=== PATIENT | female | born 1930 | race Caucasian/White ===

== ENCOUNTER 2016-11-04 05:04 | Inpatient (IN) | payer OTHER ==
[~2016-11-04] VITALS: Ht 165.1 cm; Wt 82.6 kg
--- NOTE | 2016-11-04 05:25 | ED GENERAL ADULT ---
History of Present Illness General Chief Complaint: Lower Extremity Problems Stated Complaint: WEAKNESS,BILAT LEG PAIN AND WHEEPING Source: patient, family Exam Limitations: no limitations Vital Signs & Intake/Output Vital Signs & Intake/Output Vital Signs Date Time Temp Pulse Resp B/P Pulse O2 O2 Flow FiO2 Ox Delivery Rate 11/04 0551 96 Room Air Room Air 11/04 526 98.0 83 20 172/72 96 Room Air Triage Nurses Notes Reviewed? yes HPI: Patient was seen by her vascular surgeon earlier today and had Unaboot put on. This evening she began having shaking chills and increasing weeping from both legs. Positive weakness to the point that she can't get out of bed. Patient called her daughter who brought her in for evaluation. No documented fever but positive chills. No nausea or vomiting. No coughing. No chest pain or palpitations. Past History Medical History Any Pertinent Medical History? see below for history EENT: glaucoma, macular degeneration Cardiovascular: hypertension, VASCULAR INSUFFICIENCY Surgical History Surgical History: non-contributory Psychosocial History Tobacco Use: Never used ETOH Use: denies use Illicit Drug Use: denies illicit drug use Family History Hx Contributory? No Review of Systems Review of Systems Constitutional: Reports: see HPI, chills. EENTM: Reports: no symptoms. Respiratory: Reports: no symptoms. Cardiovascular: Reports: no symptoms. GI: Reports: no symptoms. Genitourinary: Reports: no symptoms. Musculoskeletal: Reports: see HPI. Skin: Reports: no symptoms. Neurological/Psychological: Reports: no symptoms. Hematologic/Endocrine: Reports: no symptoms. Immunologic/Allergic: Reports: no symptoms. All Other Systems: Reviewed and Negative Physical Exam Physical Exam General Appearance: well developed/nourished, alert, awake Head: atraumatic, normal appearance Eyes: Bilateral: PERRL, EOMI. Ears, Nose, Throat: normal pharynx, normal ENT inspection, hearing grossly normal Neck: normal inspection, supple, full range of motion Respiratory: normal breath sounds, chest non-tender, no respiratory distress, lungs clear Cardiovascular: regular rate/rhythm, normal peripheral pulses Gastrointestinal: normal bowel sounds, soft, non-tender, no organomegaly Back: normal inspection, normal range of motion Extremities: pedal edema, swelling Neurologic/Psych: awake, alert, oriented x 3 Skin: ERYTHEMA Lymphatic: no anterior cervical chacha Core Measures ACS in differential dx? Yes ASA ordered for poss ACS? Yes-ordered CVA/TIA Diagnosis: No Severe Sepsis Present: Yes BC x2: Yes Lactic Acid x2: Yes IV ABX Broad Spectrum: Yes NS/LR Started: Yes Septic Shock Present: No Progress Differential Diagnoses I considered the following diagnoses in my evaluation of the patient: [ Cellulitis, sepsis, bacteremia] Plan of Care: Orders Procedure Date/time Status LACTIC ACID 11/04 828 Active Admit to inpatient 11/04 06 Active Telemetry/Tightener 11/04 0548 Active LACTIC ACID 11/04 528 Complete CULTURE,URINE 11/05 523 Active BLOOD CULTURE 11/05 523 Active URINALYSIS 11/05 523 Complete TROPONIN LEVEL 11/05 523 Complete COMPREHENSIVE METABOLIC PANEL 11/05 523 Complete CBC WITHOUT DIFFERENTIAL 11/05 523 Complete EKG 11/05 523 Active Current Medications Sig/Michael Start time Last Medication Dose Stop Time Status Admin Aspirin 325 MG ONCE ONE 11/04 0645 UNVr (Aspirin) 11/04 0646 Ceftriaxone Sodium 1,000 MG ONCE ONE 11/04 0645 UNVr (Rocephin) 11/04 0646 Sodium Chloride 1,000 ML BOLUS ONE 11/04 0645 UNVr (Normal Saline 0.9%) 11/04 0744 Sodium Chloride 1,000 ML BOLUS ONE 11/04 0645 UNVr (Normal Saline 0.9%) 11/04 0744 Laboratory Tests 11/04/16 0610: Urinalysis LIGHT H, Urine Color YEL, Urine Clarity HAZY H, Urine pH 6.0, Ur Specific [place] 1.020, Urine Protein 100 H, Urine Ketones NEG, Urine Nitrite NEG, Urine Bilirubin NEG, Urine Urobilinogen 0.2, Ur Leukocyte Esterase NEG, Ur Microscopic SEDIMENT EXAMINED, Urine RBC 5-10 H, Urine WBC 1-3 H, Ur Epithelial Cells FEW, Urine Bacteria FEW H, Hyaline Casts RARE H, Granular Casts 1-3 H, Urine Mucus MOD H, Urine Hemoglobin MOD H, Urine Glucose NEG 11/04/16 0535: Lactic Acid 2.9 H 11/04/16 0535: Anion Gap 19 H, Estimated GFR 30 L, BUN/Creatinine Ratio 28.1 H, Glucose 162 H, Calcium 10.0, Total Bilirubin 0.9, AST 41 H, ALT 45, Alkaline Phosphatase 123, Troponin I 1.60 *H, Total Protein 8.1, Albumin 4.4, Globulin 3.7, Albumin/ Globulin Ratio 1.2, CBC w Diff MAN DIFF ORDERED, RBC 4.28, MCV 89.1, MCH 29.1, RDW 14.8 H, MPV 8.2, Gran % 94.8 H, Lymphocytes % 2.9 L, Monocytes % 2.2, Eosinophils % 0, Basophils % 0.1, Absolute Granulocytes 22.4 H, Segmented Neutrophils 84 H, Band Neutrophils 11 H, Absolute Lymphocytes 0.7 L, Lymphocytes 3 L, Monocytes 2, Absolute Monocytes 0.5, Absolute Eosinophils 0, Absolute Basophils 0, Platelet Estimate ADEQUATE, Polychromasia 1+, PUBS MCHC 32.7 L Microbiology 11/04 609 URINE ROUT: Urine Culture - RECD 11/04 550 BLOOD: Blood Culture - RECD 11/04 534 BLOOD: Blood Culture - RECD Initial ED EKG: NSR, RBBB, nonspecific ST T wave chg Prior EKG: unchanged Rhythm Strip: normal sinus rhythm Departure Departure Disposition: STILL A PATIENT Condition: Guarded Clinical Impression Primary Impression: Sepsis Secondary Impressions: Elevated troponin Referrals: NIYA ARRIETA MD (PCP/Family) Departure Forms: Customer Survey General Discharge Information Admission Note Spoke With: SEDRICK LANGE,RADHA Givens Documentation of Exam: Documentation of any treatments & extenuating circumstances including Concerns Regarding Discharge (functional status, medication knowledge or non-compliance, living conditions, etc.) that warrant an admission rather than observation: [ Broad spectrum antibiotics, IV fluids, cardiology consultation, telemetry monitoring, serial enzymes] Critical Care Note Critical Care Note Critical Care Time: mins: (45 MIN)
--- NOTE | 2016-11-04 05:25 | NUR ---
86YO FEMALE TO RM 9 VIA WHEELCHAIR W/CO FEELING WEAK AND BILAT LE PAIN. BOTH LEGS VERY EDEMATOUS AND WRAPPED IN GAUZE TO KNEES OOZING SEROUS DRAINAGE. EVAL BY DR JOSHUA
--- NOTE | 2016-11-04 05:47 | NUR ---
LABS DRAWN --1ST SET BL CULT,SST,BLUE,WHITNEY,LAV ALL SENT
--- NOTE | 2016-11-04 05:53 | NUR ---
IV EST #20 IN LAC
--- NOTE | 2016-11-04 05:54 | NUR ---
PT MEDICATED WITH NS INFUSING PER EMAR
[2016-11-04 06:07] LABS: ABSOLUTE BASOPHIL COUNT 0 /CUMM (0.0-0.2); ABSOLUTE EOSINOPHIL COUNT 0 /CUMM (0.0-0.7); ABSOLUTE GRANULOCYTE CT 22.4 /CUMM (1.4-6.5); ABSOLUTE LYMPH COUNT 0.7 /CUMM (1.2-3.4); ABSOLUTE MONOCYTE COUNT 0.5 /CUMM (0.10-0.60); BASOPHIL % 0.1 % (0.0-2.0); EOSINOPHIL % 0 % (0-5); GRANULOCYTE % 94.8 % (42.2-75.2); HEMATOCRIT 38.2 % (37-47); MEAN CORPUSCULAR HGB 29.1 PG (27.0-31.0); MEAN CORPUSCULAR HGB CONC 32.7 G/DL (33.0-37.0); MEAN CORPUSCULAR VOLUME 89.1 FL (81.0-99.0); MEAN PLATELET VOLUME 8.2 FL (7.4-10.4); PLATELET COUNT 354 /CUMM (130-400); RBC DISTRIBUTION WIDTH 14.8 % (11.5-14.5); RED BLOOD CELL CT 4.28 /CUMM (4.20-5.40); WHITE BLOOD CELL COUNT 23.6 /CUMM (4.8-10.8)
--- NOTE | 2016-11-04 06:10 | NUR ---
STR CATH URINE OBTAINED AND 4 TUBES TO LAB.
--- NOTE | 2016-11-04 06:20 | NUR ---
BOTH LOWER EXTREM DRSGS UNWRAPPED. BOTH LEGS VERY REDDENED AND EDEMATOUS, SEVERAL OPEN OOZING AREAS PRESENT ON BOTH LEGS.
--- NOTE | 2016-11-04 06:25 | RADIOLOGY REPORT ---
EXAMINATION: XR PORTABLE CHEST CLINICAL INFORMATION: Pneumonia. Chills. COMPARISON: No relevant prior imaging available. TECHNIQUE: Portable AP view of the chest was obtained. FINDINGS: There are ill-defined bibasilar opacities that may represent a manifestation of atelectasis or consolidative disease. The cardiac silhouette is grossly enlarged. The thoracic aorta is tortuous and ectatic. Upper mediastinal contours are otherwise unremarkable. There is no acute osseous finding. IMPRESSION: Ill-defined bibasilar opacities may represent a manifestation of subsegmental atelectasis or consolidative disease. The cardiac silhouette is grossly enlarged and the thoracic aorta is tortuous and ectatic.
--- NOTE | 2016-11-04 06:26 | NUR ---
CRITICAL TEST RESULTS [id number] BRIANDA DUFFY 86 F TESTS AND RESULTS: LACTIC ACID = 2.9 Results received and read back by: CHERYL TILLEY Results received date and time: 11/04/16 0630 The following provider was notified of the results, and read the results back: DR JOSHUA Notified date and time: 11/04/16 at 0627
--- NOTE | 2016-11-04 06:36 | NUR ---
CRITICAL TEST RESULTS [id number] BRIANDA DUFFY 86 F TESTS AND RESULTS: TROPONIN 1.60 Results received and read back by: TIARA BERNSTEIN Results received date and time: 11/04/16 0636 The following provider was notified of the results, and read the results back: DR. JOSHUA Notified date and time: 11/04/16 at 0636
--- NOTE | 2016-11-04 06:50 | NUR ---
2ND IV EST #20 IN RAC, PT MEDICATED WITH 1G OFFIRMEV PER EMAR
--- NOTE | 2016-11-04 07:07 | NUR ---
HOUSE STAFF HERE TO [facility]
--- NOTE | 2016-11-04 07:13 | History & Physical ---
See Addendum JOSEPHINE LANGE,ANDI 11/04/16 0712: General Information and HPI Statement: I have seen and personally examined BRIANDA DUFFY and documented this H&P. The patient is a 86 year old F who presented with a patient stated chief complaint of [I have chills]. Source of Information: patient History of Present Illness: 86-year-old lady with a history only of hypertension and bad peripheral vascular disease presents to the emergency room with a chief complaint of tactile fevers and chills. She has bad peripheral vascular disease for which she has been followed up with vascular surgeon over the course of last few years. She has bilateral lower extremity pitting edema and the Unaboot was put on by the vascular surgeon. Subsequently after she went home she started to notice chills , tactile fevers and shaking. Subsequently she came to the emergency room is currently being treated for cellulitis and was found to has a positive troponin which is thought to be secondary to demand ischemia. At present she denies any chest pain, shortness of breath, nausea, vomiting, recent illnesses or sick contacts. Past History Travel History Traveled to [place] past 21 day No Medical History EENT: glaucoma, macular degeneration Cardiovascular: hypertension, VASCULAR INSUFFICIENCY Surgical History Surgical History: non-contributory ECHO Results (as available) Date of last Echo 04/24/14 EF% 65 Past Family/Social History Psychosocial History ETOH Use: denies use Illicit Drug Use: denies illicit drug use Review of Systems Review of Systems Constitutional: Reports: see HPI. Exam & Diagnostic Data Last 24 Hrs of Vital Signs/I&O Vital Signs Date Time Temp Pulse Resp B/P Pulse O2 O2 Flow FiO2 Ox Delivery Rate 11/04 0551 96 Room Air Room Air 11/04 0527 98.0 83 20 172/72 96 Room Air Intake & Output 11/04 0800 11/04 0000 11/03 1600 Intake Total Output Total Balance Patient 182 lb Weight Physical Exam General Appearance Alert, Oriented X3, Cooperative HEENT Atraumatic, PERRLA, EOMI Cardiovascular Normal S1, Normal S2 Lungs Clear to Auscultation, Normal Air Movement Abdomen Normal Bowel Sounds, Soft, No Tenderness Extremities B/L LE 2+ PITTING EDEMA, REDNESS AND SWELLING Last 24 Hrs of Labs/Luis: Laboratory Tests 11/04/16 0610: Urinalysis LIGHT H, Urine Color YEL, Urine Clarity HAZY H, Urine pH 6.0, Ur Specific [place] 1.020, Urine Protein 100 H, Urine Ketones NEG, Urine Nitrite NEG, Urine Bilirubin NEG, Urine Urobilinogen 0.2, Ur Leukocyte Esterase NEG, Ur Microscopic SEDIMENT EXAMINED, Urine RBC 5-10 H, Urine WBC 1-3 H, Ur Epithelial Cells FEW, Urine Bacteria FEW H, Hyaline Casts RARE H, Granular Casts 1-3 H, Urine Mucus MOD H, Urine Hemoglobin MOD H, Urine Glucose NEG 11/04/16 0535: Lactic Acid 2.9 H 11/04/16 05: Anion Gap 19 H, Estimated GFR 30 L, BUN/Creatinine Ratio 28.1 H, Glucose 162 H, Calcium 10.0, Total Bilirubin 0.9, AST 41 H, ALT 45, Alkaline Phosphatase 123, Troponin I 1.60 *H, Total Protein 8.1, Albumin 4.4, Globulin 3.7, Albumin/ Globulin Ratio 1.2, CBC w Diff MAN DIFF ORDERED, RBC 4.28, MCV 89.1, MCH 29.1, RDW 14.8 H, MPV 8.2, Gran % 94.8 H, Lymphocytes % 2.9 L, Monocytes % 2.2, Eosinophils % 0, Basophils % 0.1, Absolute Granulocytes 22.4 H, Segmented Neutrophils 84 H, Band Neutrophils 11 H, Absolute Lymphocytes 0.7 L, Lymphocytes 3 L, Monocytes 2, Absolute Monocytes 0.5, Absolute Eosinophils 0, Absolute Basophils 0, Platelet Estimate ADEQUATE, Polychromasia 1+, PUBS MCHC 32.7 L Microbiology 11/04 609 URINE ROUT: Urine Culture - RECD 11/04 550 BLOOD: Blood Culture - RECD 11/04 534 BLOOD: Blood Culture - RECD Diagnostic Data EKG Results Rate 86, MD 200, QRS 150, QTC 512 Sinus rhythm, right bundle branch block CXR Results PATIENT: BRIANDA DUFFY PRESENT AGE: 86 PATIENT ACCOUNT NO: [id number] : 29 LOCATION: [facility] ORDERING PHYSICIAN: ADILENE JOSHUA MD SERVICE DATE: 11/04/16 EXAM TYPE: RAD - XRY-PORTABLE CHEST XRAY EXAMINATION: XR PORTABLE CHEST CLINICAL INFORMATION: Pneumonia. Chills. COMPARISON: No relevant prior imaging available. TECHNIQUE: Portable AP view of the chest was obtained. FINDINGS: There are ill-defined bibasilar opacities that may represent a manifestation of atelectasis or consolidative disease. The cardiac silhouette is grossly enlarged. The thoracic aorta is tortuous and ectatic. Upper mediastinal contours are otherwise unremarkable. There is no acute osseous finding. IMPRESSION: Ill-defined bibasilar opacities may represent a manifestation of subsegmental atelectasis or consolidative disease. The cardiac silhouette is grossly enlarged and the thoracic aorta is tortuous and ectatic. DICTATED BY: MICHEAL LANCASTER MD DATE/TIME DICTATED:11/04/16619 IN HOUSE COUNSEL:SHYANNE DATE/TIME TRANSCRIBED:11/04/16619 CONFIDENTIAL, DO NOT COPY WITHOUT APPROPRIATE AUTHORIZATION. <Electronically signed in Other Vendor System> SIGNED BY: MICHEAL LANCASTER MD 11/04 Assessment/Plan Assessment: Assessment- 1. Cellulitis 2. Positive troponin; Demand ischemia vs NSTEMI 3. Sepsis 2/2 to cellulitis 4. Hypokalemia 5. NADER on CKD Plan- Admit to ICU vitals per protocol [facility] Wound care consult Unasyn 3 g every 6 Check bilateral lower extremity Dopplers Aspirin, beta lea, statin The ER physician did discuss the utility of heparin with Dr. Frank Martin ( marine equipment sales engineer); will hold off for now per cardiology Echocardiogram Trend troponin EKG Check lipid panel Maintenance IV fluids Repeat lactic acid after 3 hours from initial Replete potassium Hold off on Lasix and hydrochlorothiazide for now Heart healthy diet Pain pathway DVT prophylaxis with subcutaneous heparin Full code As Ranked By This Provider Problem List: 1. Elevated troponin 2. Sepsis Core Measures/Miscellaneous Acute Coronary Syndrome ACS Diagnosis: Yes Date of most recent Echo 04/24/14 Last Known EF % 65 ASA W/I 24hr of admit Yes Beta-Lea W/I 24hrs Yes LDL assessed W/I 24 hrs Yes Currently on Statin Yes Cerebrovascular Accident CVA/TIA Diagnosis: No Congestive Heart Failure CHF Diagnosis: No Venous Thromboembolism VTE Risk Factors: Age > 40 [facility] prophylaxis d/t: No contraindications No VTE Pharm Prophylaxis d/t: No contraindications VTE Diagnosis: No VTE Type: NONE VTE Confirmed by (Test): NONE Severe Sepsis Severe Sepsis Present: Yes BC x2: Yes Lactic Acid x2: Yes IV ABX Broad Spectrum: Yes NS/LR Started: Yes Septic Shock Septic Shock Present: No Miscellaneous Documentation Attending Case Discussed With: NIYA ARRIETA MD Primary Care Physician: NIYA ARRIETA MD Patient sees these Specialists VASCULAR SURGEON Level of Patient Care: Critical Care (CRI) Resident Review Statement Resident Statement: examined this patient, discussed with internal corrosion specialist KAYDEN MCKNIGHT MD 11/04/16 0920: General Information and HPI Allergies/Medications Allergies: Coded Allergies: pregabalin (From LYRICA) (WEAK/DIZZY 11/04/16) Attending MD Review Statement Attending Statement Attending MD Statement: examined this patient, discussed with family, reviewed EMR data (avail)
--- NOTE | 2016-11-04 07:24 | NUR ---
ASSUMED CARE OF PT WHO IS A&O X3, APPEARS IN NAD. PT DENIES PAIN AT THIS TIME AND STATES SHE FEELS MUCH BETTER SINCE GETTING TYLENOL. LEGS ARE ON CHUCKS D/T WEEPING. NS INFUSING AT THIS TIME. VSS DOCUMENTED
--- NOTE | 2016-11-04 08:02 | NUR ---
PT MEDICATED DOCUMENTED IN EMAR. PT REPOSITIONED IN BED AND LIGHTS DIMMED FOR COMFORT
--- NOTE | 2016-11-04 08:42 | NUR ---
DR MCKNIGHT AT BEDSIDE FOR EVALUATION
--- NOTE | 2016-11-04 09:04 | NUR ---
bed 104
--- NOTE | 2016-11-04 09:05 | NUR ---
PT TO U/S VIA STRETCHER
--- NOTE | 2016-11-04 09:10 | NUR ---
PT DIFFICULT STICK. TROPONIN AND LACTIC ACID DRAWN LATE D/T UNABLE TO DRAW AND THEN PT WENT TO U/S
--- NOTE | 2016-11-04 09:20 | PN- Att Addend ---
See Addendum Attending Addendum Attending Brief Note Patient complains of bilateral lower extremity pain and back pain. General Appearance: Alert, No Acute Distress Skin: Grossly normal HEENT: PEERLA Neck: Supple, No JVD Cardiovascular: Regular Rate, Normal S1, Normal S2, No Murmurs Lungs: Clear to Auscultation, Normal Air Movement Abdomen: Normal Bowel Sounds, Soft, No Tenderness Neurological: Normal Speech, Strength at 5/5 X4 Ext, Cranial Nerves 3-12 NL, Reflexes 2+ Extremities: Bilateral lower approximately cellulitis and edema Vascular: Normal Pulses Assessment 86-year-old with history of hypertension, peripheral vascular disease who recently saw her vascular surgeon who tried Unna boots on her resulting in bilateral lower extremity cellulitis. In addition she has mild acute kidney injury and lactic acidosis in the setting of cellulitis and sepsis. She does have a high troponin levels with no significant EKG changes. She will be admitted to ICU for an NSTEMI in the setting of cellulitis and sepsis. I suspect she will benefit with IV diuresis however we will hold off on IV diuresis until kidney function have improved. Her baseline creatinine is about 1.3. Plan Repeat lactic acid Cycle troponins and EKGs Replete potassium Continue IV Unasyn Follow culture Cardiology consult Check echocardiogram and start low-dose metoprolol Aspirin and statins Hold off on further IV fluids Heparin for DVT prophylaxis Current Medications Sig/Michael Start time Last Medication Dose Route Stop Time Status Admin Acetaminophen 650 MG Q6P PRN 11/04 0630 AC PO Acetaminophen 0 .STK-MED ONE 11/04 0648 DC IV Acetaminophen 1,000 MG ONCE ONE 11/04 0645 DC 11/04 N/A 1 UNIT IV 11/04 0659 0650 Ampicillin Sodium/ 3,000 MG Q12 11/04 1000 AC Sulbactam Sodium IV Sodium Chloride 100 ML Ampicillin Sodium/ 0 .STK-MED ONE 11/04 0920 DC Sulbactam Sodium .ROUTE Aspirin 81 MG DAILY 11/05 1000 AC PO Aspirin 0 .STK-MED ONE 11/04 0702 DC PO Aspirin 325 MG ONCE ONE 11/04 0645 DC 11/04 PO 11/04 0646 0707 Atorvastatin Calcium 80 MG 1700 11/05 1700 AC PO Atorvastatin Calcium 80 MG ONCE ONE 11/04 0730 DC 11/04 PO 11/04 0731 0758 Ceftriaxone Sodium 0 .STK-MED ONE 11/04 0702 DC .ROUTE Ceftriaxone Sodium 1,000 MG ONCE ONE 11/04 0645 DC 11/04 IV 11/04 0646 0707 Heparin Sodium 5,000 UNIT Q8 11/04 1400 AC (Porcine) SC Ibuprofen 600 MG Q6P PRN 11/04 0730 AC PO Metoprolol Tartrate 0 .STK-MED ONE 11/04 0743 DC IV Metoprolol Tartrate 2.5 MG ONCE ONE 11/04 0730 DC 11/04 IV 11/04 0731 0745 Oxycodone/ 1 TAB Q6P PRN 11/04 0730 AC Acetaminophen PO Potassium Chloride 0 .STK-MED ONE 11/04 0750 DC PO Potassium Chloride 60 MEQ ONCE ONE 11/04 0745 DC 11/04 PO 11/04 0746 0758 Sodium Chloride 1,000 ML Q13H 11/04 0900 AC IV 11/04 2159 Sodium Chloride 1,000 ML BOLUS ONE 11/04 0645 DC 11/04 IV 11/04 0744 0745 Sodium Chloride 1,000 ML BOLUS ONE 11/04 0645 DC IV 11/04 0744 Sodium Chloride 1,000 ML BOLUS ONE 11/04 0530 DC 11/04 IV 11/04 0629 0554 Laboratory Tests 11/04 11/04 0610 0535 Chemistry Lactic Acid (0.7 - 2.1 mmol/L) 2.9 H Urines Urinalysis LIGHT H Urine Color (YEL,AMB,STR) YEL Urine Clarity (CLEAR) HAZY H Urine pH (5.0 - 8.0) 6.0 Ur Specific [place] (1.001 - 1.035) 1.020 Urine Protein (NEG,<30 MG/DL) 100 H Urine Ketones (NEG) NEG Urine Nitrite (NEG) NEG Urine Bilirubin (NEG) NEG Urine Urobilinogen (0.1 - 1.0 EU/dl) 0.2 Ur Leukocyte Esterase (NEG) NEG Ur Microscopic SEDIMENT EXAMINED Urine RBC (0 - 5 /HPF) 5-10 H Urine WBC (0 - 2 /HPF) 1-3 H Ur Epithelial Cells (NONE,FEW) FEW Urine Bacteria (NEG/NONE) FEW H Hyaline Casts (0/LPF) RARE H Granular Casts (NONE /LPF) 1-3 H Urine Mucus (FEW,NONE) MOD H Urine Hemoglobin (NEG) MOD H Urine Glucose (N MG/DL) NEG 11/04 0535 Chemistry Sodium (137 - 145 mmol/L) 136 L Potassium (3.5 - 5.1 mmol/L) 3.4 L Chloride (98 - 107 mmol/L) 90 L Carbon Dioxide (22 - 30 mmol/L) 26 Anion Gap (5 - 16) 19 H BUN (7 - 17 mg/dL) 45 H Creatinine (0.5 - 1.0 mg/dL) 1.6 H Estimated GFR (>60 ml/min) 30 L BUN/Creatinine Ratio (7 - 25 %) 28.1 H Glucose (65 - 99 mg/dL) 162 H Hemoglobin A1c (4.2 - 5.8 %) Pending Calcium (8.4 - 10.2 mg/dL) 10.0 Total Bilirubin (0.2 - 1.3 mg/dL) 0.9 AST (14 - 36 U/L) 41 H ALT (9 - 52 U/L) 45 Alkaline Phosphatase (<127 U/L) 123 Troponin I (< 0.11 ng/ml) 1.60 *H Total Protein (6.3 - 8.2 g/dL) 8.1 Albumin (3.5 - 5.0 g/dL) 4.4 Globulin (1.9 - 4.2 gm/dL) 3.7 Albumin/Globulin Ratio (1.1 - 2.2 %) 1.2 Triglycerides (<150 mg/dL) 84 Cholesterol (<200 MG/DL) 177 LDL Cholesterol, Calc (65 - 129 mg/dL) 51 L HDL Cholesterol (40 - 60 mg/dL) 114 H Cholesterol/HDL Ratio (0.00 - 4.23 %) 1.6 TSH (0.270 - 4.200 uIU/mL) 2.430 Free T4 (0.85 - 1.93 ng/dL) 1.45 Hematology CBC w Diff MAN DIFF ORDERED WBC (4.8 - 10.8 /CUMM) 23.6 H RBC (4.20 - 5.40 /CUMM) 4.28 Hgb (12.0 - 16.0 G/DL) 12.5 Hct (37 - 47 %) 38.2 MCV (81.0 - 99.0 FL) 89.1 MCH (27.0 - 31.0 PG) 29.1 RDW (11.5 - 14.5 %) 14.8 H Plt Count (130 - 400 /CUMM) 354 MPV (7.4 - 10.4 FL) 8.2 Gran % (42.2 - 75.2 %) 94.8 H Lymphocytes % (20.5 - 51.1 %) 2.9 L Monocytes % (1.7 - 9.3 %) 2.2 Eosinophils % (0 - 5 %) 0 Basophils % (0.0 - 2.0 %) 0.1 Absolute Granulocytes (1.4 - 6.5 /CUMM) 22.4 H Segmented Neutrophils (42.2 - 75.2 %) 84 H Band Neutrophils (0.0 - 5.0 %) 11 H Absolute Lymphocytes (1.2 - 3.4 /CUMM) 0.7 L Lymphocytes (20.5 - 51.1 %) 3 L Monocytes (1.7 - 9.3 %) 2 Absolute Monocytes (0.10 - 0.60 /CUMM) 0.5 Absolute Eosinophils (0.0 - 0.7 /CUMM) 0 Absolute Basophils (0.0 - 0.2 /CUMM) 0 Platelet Estimate (ADEQUATE) ADEQUATE Polychromasia 1+ PUBS MCHC (33.0 - 37.0 G/DL) 32.7 L Vital Signs Date Time Temp Pulse Resp B/P Pulse O2 O2 Flow FiO2 Ox Delivery Rate 11/04 0745 99.3 77 20 142/63 11/04 0731 99.3 77 20 142 94 Room Air 11/04 0551 96 Room Air Room Air 11/04 0527 98.0 83 20 172/72 96 Room Air
--- NOTE | 2016-11-04 09:20 | Admission Certification ---
Admission Certification Certification Statement - As attending physician, I certify that at the time of - admission, based on clinical presentation, severity of - symptoms, need for further diagnostic testing and - therapeutic interventions, and risk of adverse outcomes - without in-hospital treatment, in my clinical assessment, - this patient requires an acute hospital stay for a minimum - of two nights or longer. I have also considered psychsocial - factors such as support system, advanced age, financial - issues, cognitive issues, and failed out-patient treatments, - past re-admission history, safety of patient, and lack of - compliance as applicable. Specific rationale supporting this admission is: Cellulitis, sepsis and NSTEMI
--- NOTE | 2016-11-04 10:58 | NUR ---
PT HAS NO COMPLAINTS AT THIS TIME. DAUGHTER REMAINS AT BEDSIDE. PT STATES PAIN IN LEGS BETTER SINCE PERCOCET. REPORT TO ED RN. PT STABLE FOR TRANSFER
--- NOTE | 2016-11-04 11:05 | ULTRASOUND REPORT ---
EXAMINATION: US TRIPLEX LOWER EXTREMITY, BILATERAL CLINICAL INFORMATION: Pain and swelling of both lower extremities. COMPARISON: 12/26/2010 TECHNIQUE: Color-flow triplex imaging with spectral analysis and compression Doppler were performed on the bilateral lower extremities. FINDINGS: Respiratory variation, normal compression and augmented flow are noted throughout the bilateral lower extremities. The visualized common femoral vein, superficial femoral vein, profunda femoral vein, popliteal vein and midcalf peroneal and posterior tibial venous segments show no evidence of deep venous thrombosis. The Soriano's cyst previously noted in 2010 on the left is not present. IMPRESSION: Normal triplex scan without evidence of deep venous thrombosis involving the bilateral lower extremities.
[2016-11-04 11:10] VITALS: BP 122/58
--- NOTE | 2016-11-04 11:21 | Cons- Cardiology ---
General Information and HPI Consulting Request Date of Consult: 11/04/16 Requested By: NIYA ARRIETA MD Reason for Consult: Positive troponin Source of Information: patient, family, old records Exam Limitations: no limitations History of Present Illness: The patient is an 86-year-old female with a history of hypertension, peripheral vascular disease, who now presents with chills and possible fever. The patient states that she has been followed by vascular and recently saw Dr. Finney as an outpatient in the office where her legs were wrapped. She has been following up with them routinely regarding her chronic venous insufficiency. She states that on the day of admission she felt chills with possible fever but denied chest pain or shortness of breath. She did note an intermittent nonproductive cough. Due to her symptoms she presented to the emergency room for evaluation. Blood work was obtained and she was found to have a mildly elevated troponin The patient denies any prior cardiac history. She had an outpatient echocardiogram performed in 2013 demonstrating an ejection fraction of 65% and no valvular abnormalities. She denies diabetes, hyperlipidemia, smoking, or family history of premature coronary artery disease. Allergies/Medications Allergies: Coded Allergies: pregabalin (From [facility]) (WEAK/DIZZY 11/04/16) Current Medications: Current Medications Sig/Michael Start time Last Medication Dose Route Stop Time Status Admin Acetaminophen 650 MG Q6P PRN 11/04 729 AC PO Acetaminophen 0 .STK-MED ONE 11/04 0648 DC IV Acetaminophen 1,000 MG ONCE ONE 11/04 644 DC 11/04 N/A 1 UNIT IV 11/04 0659 0650 Ampicillin Sodium/ 3,000 MG Q12 11/04 1000 AC 11/04 Sulbactam Sodium IV 0927 Sodium Chloride 100 ML Ampicillin Sodium/ 0 .STK-MED ONE 11/04 0920 DC Sulbactam Sodium .ROUTE Aspirin 81 MG DAILY 11/05 1000 AC PO Aspirin 0 .STK-MED ONE 11/04 0702 DC PO Aspirin 325 MG ONCE ONE 11/04 0545 DC 11/04 PO 11/04 0646 0707 Atorvastatin Calcium 80 MG 1700 11/05 1700 AC PO Atorvastatin Calcium 80 MG ONCE ONE 11/04 0730 DC 11/04 PO 11/04 0731 0758 Ceftriaxone Sodium 0 .STK-MED ONE 11/04 0702 DC .ROUTE Ceftriaxone Sodium 1,000 MG ONCE ONE 11/04 0545 DC 11/04 IV 11/04 0646 0707 Heparin Sodium 5,000 UNIT Q8 11/04 1400 AC (Porcine) SC Ibuprofen 600 MG Q6P PRN 11/04 0730 AC PO Metoprolol Tartrate 0 .STK-MED ONE 11/04 0743 DC IV Metoprolol Tartrate 2.5 MG ONCE ONE 11/04 0730 DC 11/04 IV 11/04 0731 0745 Oxycodone/ 0 .STK-MED ONE 11/04 0934 DC Acetaminophen PO Oxycodone/ 1 TAB Q6P PRN 11/04 0730 AC Acetaminophen PO Potassium Chloride 0 .STK-MED ONE 11/04 0750 DC PO Potassium Chloride 60 MEQ ONCE ONE 11/04 0745 DC 11/04 PO 11/04 0746 0758 Sodium Chloride 1,000 ML Q13H 11/04 0900 AC 11/04 IV 11/04 2159 0927 Sodium Chloride 1,000 ML BOLUS ONE 11/04 0645 DC 11/04 IV 11/04 0744 0745 Sodium Chloride 1,000 ML BOLUS ONE 11/04 0645 DC IV 11/04 0744 Sodium Chloride 1,000 ML BOLUS ONE 11/04 0530 DC 11/04 IV 11/04 0629 0554 Review of Systems Review of Systems: Eyes no blurred or double vision Ears no deafness or ringing Nose and throat no recurrent sinusitis Lungs per history of present illness Heart per history of present illness Abdomen no nausea vomiting Musculoskeletal occasional muscle and joint pains chronic venous insufficiency Psych no anxiety or depression Neuro without recurrent headache or seizures Endocrine no heat or cold intolerance Past History Travel History Traveled to [place] past 21 day No Medical History EENT: glaucoma, macular degeneration Cardiovascular: hypertension, VASCULAR INSUFFICIENCY Surgical History Surgical History: non-contributory Psychosocial History ETOH Use: denies use Illicit Drug Use: denies illicit drug use ECHO Results (as available) Date of last Echo 04/24/14 EF% 65 Exam & Diagnostic Data Vital Signs and I&O Vital Signs Date Time Temp Pulse Resp B/P Pulse O2 O2 Flow FiO2 Ox Delivery Rate 11/04 1010 98.0 74 18 129/78 96 Room Air 11/04 0830 98.4 78 20 134/80 95 11/04 0745 99.3 77 20 142/63 11/04 0731 99.3 77 20 142/63 94 Room Air 11/04 0551 96 Room Air Room Air 11/04 0527 98.0 83 20 172/72 96 Room Air Intake & Output 11/04 1600 11/04 0800 11/04 0000 11/03 1600 11/03 0800 11/03 0000 Intake Total 2000 Output Total Balance 2000 Intake, IV 2000 Patient 182 lb Weight Physical Exam: Patient is a well-developed well-nourished female appearing in no acute distress HEENT is unremarkable Neck is supple there is no JVD Lungs are clear Heart regular rhythm S1 and S2 are normal no murmurs gallops or rubs Abdomen bowel sounds positive Extremities significant erythema and 4+ edema with chronic venous stasis changes and weeping. Labs/Luis Results: Laboratory Tests 11/04 11/04 11/04 0937 0937 0610 Chemistry Lactic Acid (0.7 - 2.1 mmol/L) 1.6 Troponin I Pending Urines Urinalysis LIGHT H Urine Color (YEL,AMB,STR) YEL Urine Clarity (CLEAR) HAZY H Urine pH (5.0 - 8.0) 6.0 Ur Specific [place] (1.001 - 1.035) 1.020 Urine Protein (NEG,<30 MG/DL) 100 H Urine Ketones (NEG) NEG Urine Nitrite (NEG) NEG Urine Bilirubin (NEG) NEG Urine Urobilinogen (0.1 - 1.0 EU/dl) 0.2 Ur Leukocyte Esterase (NEG) NEG Ur Microscopic SEDIMENT EXAMINED Urine RBC (0 - 5 /HPF) 5-10 H Urine WBC (0 - 2 /HPF) 1-3 H Ur Epithelial Cells (NONE,FEW) FEW Urine Bacteria (NEG/NONE) FEW H Hyaline Casts (0/LPF) RARE H Granular Casts (NONE /LPF) 1-3 H Urine Mucus (FEW,NONE) MOD H Urine Hemoglobin (NEG) MOD H Urine Glucose (N MG/DL) NEG 11/04 11/04 0535 0535 Chemistry Sodium (137 - 145 mmol/L) 136 L Potassium (3.5 - 5.1 mmol/L) 3.4 L Chloride (98 - 107 mmol/L) 90 L Carbon Dioxide (22 - 30 mmol/L) 26 Anion Gap (5 - 16) 19 H BUN (7 - 17 mg/dL) 45 H Creatinine (0.5 - 1.0 mg/dL) 1.6 H Estimated GFR (>60 ml/min) 30 L BUN/Creatinine Ratio (7 - 25 %) 28.1 H Glucose (65 - 99 mg/dL) 162 H Hemoglobin A1c (4.2 - 5.8 %) 6.8 H Lactic Acid (0.7 - 2.1 mmol/L) 2.9 H Calcium (8.4 - 10.2 mg/dL) 10.0 Total Bilirubin (0.2 - 1.3 mg/dL) 0.9 AST (14 - 36 U/L) 41 H ALT (9 - 52 U/L) 45 Alkaline Phosphatase (<127 U/L) 123 Troponin I (< 0.11 ng/ml) 1.60 *H Total Protein (6.3 - 8.2 g/dL) 8.1 Albumin (3.5 - 5.0 g/dL) 4.4 Globulin (1.9 - 4.2 gm/dL) 3.7 Albumin/Globulin Ratio (1.1 - 2.2 %) 1.2 Triglycerides (<150 mg/dL) 84 Cholesterol (<200 MG/DL) 177 LDL Cholesterol, Calc (65 - 129 mg/dL) 51 L HDL Cholesterol (40 - 60 mg/dL) 114 H Cholesterol/HDL Ratio (0.00 - 4.23 %) 1.6 TSH (0.270 - 4.200 uIU/mL) 2.430 Free T4 (0.85 - 1.93 ng/dL) 1.45 Hematology CBC w Diff MAN DIFF ORDERED WBC (4.8 - 10.8 /CUMM) 23.6 H RBC (4.20 - 5.40 /CUMM) 4.28 Hgb (12.0 - 16.0 G/DL) 12.5 Hct (37 - 47 %) 38.2 MCV (81.0 - 99.0 FL) 89.1 MCH (27.0 - 31.0 PG) 29.1 RDW (11.5 - 14.5 %) 14.8 H Plt Count (130 - 400 /CUMM) 354 MPV (7.4 - 10.4 FL) 8.2 Gran % (42.2 - 75.2 %) 94.8 H Lymphocytes % (20.5 - 51.1 %) 2.9 L Monocytes % (1.7 - 9.3 %) 2.2 Eosinophils % (0 - 5 %) 0 Basophils % (0.0 - 2.0 %) 0.1 Absolute Granulocytes (1.4 - 6.5 /CUMM) 22.4 H Segmented Neutrophils (42.2 - 75.2 %) 84 H Band Neutrophils (0.0 - 5.0 %) 11 H Absolute Lymphocytes (1.2 - 3.4 /CUMM) 0.7 L Lymphocytes (20.5 - 51.1 %) 3 L Monocytes (1.7 - 9.3 %) 2 Absolute Monocytes (0.10 - 0.60 /CUMM) 0.5 Absolute Eosinophils (0.0 - 0.7 /CUMM) 0 Absolute Basophils (0.0 - 0.2 /CUMM) 0 Platelet Estimate (ADEQUATE) ADEQUATE Polychromasia 1+ PUBS MCHC (33.0 - 37.0 G/DL) 32.7 L Diagnostic Data EKG Results Sinus rhythm new right bundle branch block left anterior hemiblock nonspecific T -wave changes CXR Results IMPRESSION: Ill-defined bibasilar opacities may represent a manifestation of subsegmental atelectasis or consolidative disease. The cardiac silhouette is grossly enlarged and the thoracic aorta is tortuous and ectatic. Other Results Venous Doppler study IMPRESSION: Normal triplex scan without evidence of deep venous thrombosis involving the bilateral lower extremities. Assessment/Plan Assessment/Plan 1. Cellulitis with sepsis. She is afebrile but has significant leukocytosis. 2. Elevated troponins most likely secondary to demand ischemia 3. New right bundle branch block compared to EKG from 2011 there are no more recent tracings for comparison 4. Hypertension 5. Renal insufficiency 6. Chronic peripheral vascular disease 7. Hypokalemia Recommendations 1. I agree with holding Lasix and hydrochlorothiazide given renal insufficiency at present 2. Continue antibiotics for cellulitis 3. Cultures are pending 4. Continue aspirin and statin 5. Would obtain an echocardiogram to rule out any wall motion abnormalities and reassess her LV function 6. Further troponins are pending. If they are significantly trending upwards would then initiate heparin. 7. Would start low-dose metoprolol 8. The above was discussed with the patient, her daughter, and the residents. Consult Acknowledgment - Thank you for your consult request.
[2016-11-04 16:00] VITALS: BP 112/52
[2016-11-04 23:58] VITALS: BP 102/40
--- NOTE | 2016-11-05 07:11 | PN- Housestaff ---
Subjective Follow-up For: Bilateral lower leg cellulitis Gram-negative septicemia Complaints: no complaints Tele-Events Since Last Visit: Normal sinus rhythm, heart rate between 66-75, no any overnight events Subjective: Patient is seen and examined at the bedside. She was feeling much better. According to her cellulitis has been improved. She denies chest pain, chills, fever, nausea, vomiting, shortness of breath. Review of Systems Constitutional: Reports: weakness. Cardiovascular: Denies: chest pain, edema, orthopena, palpitations. Respiratory: Denies: cough, hemoptysis, orthopnea, short of breath. Gastrointestinal: Denies: abdominal pain, bloating, constipation, diarrhea, distention. Genitourinary: Denies: discharge, dysuria, frequency. Musculoskeletal: Denies: back pain, gout, joint pain. Skin: Reports: erythema. Neurological/Psychological: Denies: anxiety. Objective Last 24 Hrs of Vital Signs/I&O Vital Signs Date Time Temp Pulse Resp B/P Pulse O2 O2 Flow FiO2 Ox Delivery Rate 11/05 1627 97.7 74 18 130/60 94 Room Air 11/05 0954 150/60 11/05 0800 97.6 67 20 150/60 96 Room Air 11/05 0000 Room Air 11/04 2358 97.3 68 18 102/40 94 Room Air 11/04 2148 98.7 68 22 116/49 Intake & Output 11/05 1600 11/05 0800 11/05 0000 Intake Total 845 950 Output Total 200 150 450 Balance 645 -150 500 Intake, IV 125 700 Intake, Oral 720 250 Output, Urine 200 150 450 Physical Exam General Appearance: Alert, Oriented X3, Cooperative, No Acute Distress Skin: bilateral lower leg erythema, nonpitting edema,dressing Cardiovascular: Normal S1, Normal S2 Lungs: Clear to Auscultation, Normal Air Movement Abdomen: Soft, No Tenderness Neurological: Normal Speech Extremities: bilateral lower leg non pitting edema Vascular: cannt be accesed as lower leg edema Assessment/Plan Assessment: Patient is an 86-year-old female with significant past medical history of hypertension, peripheral vascular disease, recurrent cellulitis , presented with chief complaints of fever and chills. Plan - Bilateral lower leg cellulitis -probably secondary to venous stasis and peripheral vascular disease. * Blood culture showing gram-negative rods * We will continue inj Unasyn 3 grams IV every 6hrly * We will change the antibiotic if required, After seeing the culture and sensitivity results * Vitals every shift * Strict intake output charting * We will follow wound consult recommendation Demand ischemia - * Troponins is already trended down * Patient denies any symptoms of chest pain, shortness of breath * We will follow cardiology recommendation CKD - * We'll regularly monitor creatinine Diet -heart healthy diet DVT prophylaxis- Heparin Code status -FC Problem List: 1. Bilateral lower leg cellulitis 2. Hypertension 3. Obesity 4. Demand ischemia Pain Ratin Pain Location: bilateral lower legs Pain Goal: Remain pain free Pain Plan: mild, avoid NSAIDs Tomorrow's Labs & Rationales: BEP -f/u with poattasium, creatinine CBC - f/u Infection and anemia DVT/Prophylaxis: pharmacological
[2016-11-05 07:55] LABS: ABSOLUTE BASOPHIL COUNT 0 /CUMM (0.0-0.2); ABSOLUTE EOSINOPHIL COUNT 0 /CUMM (0.0-0.7); ABSOLUTE GRANULOCYTE CT 11.2 /CUMM (1.4-6.5); ABSOLUTE LYMPH COUNT 0.8 /CUMM (1.2-3.4); ABSOLUTE MONOCYTE COUNT 0.4 /CUMM (0.10-0.60); BASOPHIL % 0 % (0.0-2.0); EOSINOPHIL % 0 % (0-5); MEAN CORPUSCULAR HGB 28.8 PG (27.0-31.0); MEAN CORPUSCULAR HGB CONC 32.6 G/DL (33.0-37.0); MEAN CORPUSCULAR VOLUME 88.1 FL (81.0-99.0); RBC DISTRIBUTION WIDTH 15.4 % (11.5-14.5); RED BLOOD CELL CT 3.37 /CUMM (4.20-5.40); WHITE BLOOD CELL COUNT 12.4 /CUMM (4.8-10.8)
[2016-11-05 08:00] VITALS: BP 150/60
[2016-11-05 08:28] LABS: HEMATOCRIT 29.7 % (37-47)
[2016-11-05 08:41] LABS: GRANULOCYTE % 90.6 % (42.2-75.2)
[2016-11-05] MEDS ORDERED: TRAMADOL HCL50 M1 PO (10:10)
[2016-11-05] MEDS ORDERED: HYDROCHLOROTHIA50 M1 PO (10:11)
[2016-11-05] MEDS ORDERED: FUROSEMIDE40 M1 PO (10:11)
[2016-11-05] MEDS ORDERED: DAILY MULTIPLE1 EACH PO (10:12)
[2016-11-05] MEDS ORDERED: VITAMIN D31000 UNI2 PO (10:12)
[2016-11-05] MEDS ORDERED: IBUPROFEN200 M3 PO (10:12)
--- NOTE | 2016-11-05 11:22 | ECHOCARDIOGRAM REPORT ---
BRIANDA DUFFY Age: 86 : 1930 Gender: F Exam Date: 11/04/2016 16:39 Exam Location: [facility] Ht (in): 65 Wt (lb): 182 BSA: 1.97 BP: 122 / 50 Ordering Physician: SHARAN BURTON M Referring Physician: Villa Leon M.D. Technologist: Kristine Cerna RDCS Room Number: [id number] Indications: CHEST PAIN Rhythm: Technical Quality: Technically difficult study FINDINGS Left Ventricle Left ventricular cavity size normal. Left ventricular wall thickness mildly increased. No obvious regional wall motion abnormalities. Left ventricular ejection fraction is estimated at > 55 %. Right Ventricle Normal right ventricular size and function. Right Atrium Normal right atrial size. Left Atrium Left atrial size at the upper limits of normal. Mitral Valve Mild mitral annular calcification. No mitral stenosis. Trace mitral regurgitation. Aortic Valve Trileaflet aortic valve. No aortic stenosis. Mild aortic regurgitation. Tricuspid Valve Tricuspid valve not well visualized, grossly normal. Trace tricuspid regurgitation. Unable to estimate the right ventricular systolic pressure. Pulmonic Valve Pulmonic valve not well visualized, grossly normal. Pericardium Pericardium not well visualized. Echo free space anterior to the right ventricle likely represents a fat pad. Great Vessels Normal size aortic root. CONCLUSIONS Technically difficult study. Left ventricular cavity size normal. Left ventricular wall thickness mildly increased. No obvious regional wall motion abnormalities. Left ventricular ejection fraction is estimated at > 55 %. Normal right ventricular size and function. Left atrial size at the upper limits of normal. Unable to estimate the right ventricular systolic pressure. Pericardium not well visualized. Echo free space anterior to the right ventricle likely represents a fat pad. Clyde Vega M.D. (Electronically Signed) Final Date: 05 November 2016 11:21 MEASUREMENTS (Male / Female) Normal Values 2D ECHO LV Diastolic Diameter PLAX 4.3 cm 4.2 - 5.9 / 3.9 - 5.3 cm LV Systolic Diameter PLAX 2.2 cm 2.1 - 4.0 cm LV Fractional Shortening PLAX 48.8 % 25 - 46 % LV Ejection Fraction 2D Teich 80.5 % IVS Diastolic Thickness 1.3 cm LVPW Diastolic Thickness 1.2 cm LV Relative Wall Thickness 0.6 RV Internal Dim ED PLAX 2.0 cm 1.9 - 3.8 cm LVOT Diameter 2.1 cm Aortic Root Diameter 3.1 cm LA Systolic Diameter LX 3.3 cm 3.0 - 4.0 / 2.7 - 3.8 cm LA Volume 39.0 cm 18 - 58 / 22 - 52 cm Ascending Aorta Diameter 2.8 cm DOPPLER AV Peak Velocity 151.0 cm/s AV Peak Gradient 9.1 mmHg AV Mean Velocity 109.0 cm/s AV Mean Gradient 5.0 mmHg AV Velocity Time Integral 34.3 cm LVOT Peak Velocity 127.0 cm/s LVOT Peak Gradient 6.5 mmHg LVOT Mean Velocity 86.3 cm/s LVOT Mean Gradient 3.0 mmHg LVOT Velocity Time Integral 26.1 cm LVOT Stroke Volume 90.4 cm AV Area Cont Eq vti 2.6 cm AV Area Cont Eq pk 2.9 cm MV Peak Velocity 118.0 cm/s MV Peak Gradient 5.6 mmHg MV Mean Velocity 68.2 cm/s MV Mean Gradient 2.0 mmHg Mitral E Point Velocity 102.0 cm/s Mitral A Point Velocity 115.0 cm/s Mitral E to A Ratio 0.9 MV PHT Velocity 107.0 cm/s MV Deceleration [place] 469.0 cm/s MV Pressure Half Time 68.4 ms MV Area PHT 3.2 cm MV Deceleration Time 198.0 ms TR Peak Velocity 101.0 cm/s TR Peak Gradient 4.1 mmHg Right Atrial Pressure 5.0 mmHg Pulmonary Artery Systolic Pressu 9.1 mmHg Right Ventricular Systolic Press 9.1 mmHg PV Peak Velocity 96.7 cm/s PV Peak Gradient 3.7 mmHg PV Mean Velocity 77.0 cm/s PV Mean Gradient 3.0 mmHg PV Velocity Time Integral 22.8 cm LV E' Lateral Velocity 10.9 cm/s Mitral E to LV E' Lateral Ratio 9.4 LV E' Septal Velocity 14.9 cm/s Mitral E to LV E' Septal Ratio 6.8
--- NOTE | 2016-11-05 12:16 | PN- Cardiology ---
Subjective Subjective: Doing well today. Has some pain in her legs but no chest pain, palpitations, or dyspnea. Objective Vital Signs and I&Os Vital Signs Date Time Temp Pulse Resp B/P Pulse O2 O2 Flow FiO2 Ox Delivery Rate 11/05 0954 150/60 11/05 0800 97.6 67 20 150/60 96 Room Air 11/05 0000 Room Air 11/04 2358 97.3 68 18 102/40 94 Room Air 11/04 2148 98.7 68 22 116/49 11/04 1600 95 Room Air Room Air 11/04 1600 97.7 78 18 112/52 95 Room Air Room Air Intake & Output 11/05 1600 11/05 0800 11/05 0000 11/04 1600 11/04 0800 11/04 0000 Intake Total 950 2900 Output Total 150 450 Balance -620 420 6846 Intake, IV 700 2500 Intake, Oral 250 400 Output, Urine 150 450 Patient 182 lb 182 lb Weight Physical Exam: General: no apparent distress. Alert. Eyes: No obvious scleral icterus. HEENT: No jugular venous distention or abnormal jugular venous pulsations. Cardiovascular: Normal intensity S1/S2. Regular. Respiratory: Lungs clear to auscultation bilaterally. Abdomen: Soft, nontender with no guarding or rebound tenderness. Musculoskeletal: No clubbing or cyanosis noted, bilateral lower extremity wrappings with 1+ edema Skin: Warm, stasis changes noted Neurologic: No gross focal deficits noted. Current Medications: Current Medications Sig/Michael Start time Last Medication Dose Route Stop Time Status Admin Acetaminophen 650 MG Q6P PRN 11/04 0730 AC PO Ampicillin Sodium/ 3,000 MG Q12 11/04 1000 AC 11/05 Sulbactam Sodium IV 1001 Sodium Chloride 100 ML Aspirin 81 MG DAILY 11/05 1000 AC 11/05 PO 0954 Atorvastatin Calcium 80 MG 1700 11/05 1700 AC PO Heparin Sodium 5,000 UNIT Q8 11/04 1400 AC 11/05 (Porcine) SC 0620 Ibuprofen 600 MG Q6P PRN 11/04 0730 AC PO Metoprolol Tartrate 12.5 MG BID 11/04 2200 AC 11/05 PO 0954 Oxycodone/ 1 TAB Q6P PRN 11/04 0730 AC 11/05 Acetaminophen PO 0859 Potassium Chloride 40 MEQ ONCE ONE 11/05 1115 DC 11/05 PO 11/05 1116 1150 Potassium Chloride 60 MEQ ONCE ONE 11/04 1615 DC 11/04 PO 11/04 1616 1716 Sodium Chloride 1,000 ML Q13H 11/04 0900 DC 11/04 IV 11/04 8752 0957 Results Last 48 Hrs of Labs/Mics: Laboratory Tests 11/05/16 0640: Anion Gap 7, Estimated GFR 39 L, Glucose 109 H, Calcium 8.6, Phosphorus 3.2, Magnesium 2.0, Total Bilirubin 1.1, AST 94 H, ALT 70 H, Albumin 2.9 L, CBC w Diff NO MAN DIFF REQ, RBC 3.37 L, MCV 88.1, MCH 28.8, RDW 15.4 H, Gran % 90.6 H, Lymphocytes % 6.2 L, Monocytes % 3.2, Eosinophils % 0, Basophils % 0 L, Absolute Granulocytes 11.2 H, Absolute Lymphocytes 0.8 L, Absolute Monocytes 0.4, Absolute Eosinophils 0, Absolute Basophils 0, PUBS MCHC 32.6 L 11/04/16 1415: Troponin I 0.79 *H 11/04/16 1415: Anion Gap 10, Estimated GFR 39 L, Glucose 126 H, Calcium 8.4, Phosphorus 3.7, Magnesium 1.8, Total Bilirubin 1.0, AST 55 H, ALT 45, Albumin 3.0 L 11/04/16 0937: Troponin I 1.06 *H 11/04/16 0937: Lactic Acid 1.6 11/04/16 0610: Urinalysis LIGHT H, Urine Color YEL, Urine Clarity HAZY H, Urine pH 6.0, Ur Specific [place] 1.020, Urine Protein 100 H, Urine Ketones NEG, Urine Nitrite NEG, Urine Bilirubin NEG, Urine Urobilinogen 0.2, Ur Leukocyte Esterase NEG, Ur Microscopic SEDIMENT EXAMINED, Urine RBC 5-10 H, Urine WBC 1-3 H, Ur Epithelial Cells FEW, Urine Bacteria FEW H, Hyaline Casts RARE H, Granular Casts 1-3 H, Urine Mucus MOD H, Urine Hemoglobin MOD H, Urine Glucose NEG 11/04/16 0535: Lactic Acid 2.9 H 11/04/16 0535: Anion Gap 19 H, Estimated GFR 30 L, BUN/Creatinine Ratio 28.1 H, Glucose 162 H, Hemoglobin A1c 6.8 H, Calcium 10.0, Total Bilirubin 0.9, AST 41 H, ALT 45, Alkaline Phosphatase 123, Troponin I 1.60 *H, Total Protein 8.1, Albumin 4.4, Globulin 3.7, Albumin/Globulin Ratio 1.2, Triglycerides 84, Cholesterol 177, LDL Cholesterol, Calc 51 L, HDL Cholesterol 114 H, Cholesterol/HDL Ratio 1.6, TSH 2.430, Free T4 1.45, CBC w Diff MAN DIFF ORDERED, RBC 4.28, MCV 89.1, MCH 29.1, RDW 14.8 H, MPV 8.2, Gran % 94.8 H, Lymphocytes % 2.9 L, Monocytes % 2.2, Eosinophils % 0, Basophils % 0.1, Absolute Granulocytes 22.4 H, Segmented Neutrophils 84 H, Band Neutrophils 11 H, Absolute Lymphocytes 0.7 L, Lymphocytes 3 L, Monocytes 2, Absolute Monocytes 0.5, Absolute Eosinophils 0, Absolute Basophils 0, Platelet Estimate ADEQUATE, Polychromasia 1+, PUBS MCHC 32.7 L Recent Imaging Studies: Telemetry tracings were personally reviewed and shows sinus rhythm Venous Dopplers IMPRESSION: Normal triplex scan without evidence of deep venous thrombosis involving the bilateral lower extremities. Echocardiogram Technically difficult study. Left ventricular cavity size normal. Left ventricular wall thickness mildly increased. No obvious regional wall motion abnormalities. Left ventricular ejection fraction is estimated at > 55 %. Normal right ventricular size and function. Left atrial size at the upper limits of normal. Unable to estimate the right ventricular systolic pressure. Pericardium not well visualized. Echo free space anterior to the right ventricle likely represents a fat pad. Clyde Vega M.D. (Electronically Signed) Final Date: 05 November 2016 11:21 Assessment/Plan Assessment/Plan 1. Cellulitis/sepsis 2. Elevated troponins most likely secondary to demand ischemia 3. Right bundle-branch block 4. Hypertension 5. Renal insufficiency 6. Chronic peripheral vascular disease 7. Hypokalemia 8. Anemia Patient denies any chest pain or dyspnea. Echocardiogram showed no obvious wall motion abnormalities and elevated troponins are likely due to demand ischemia. Continue on daily aspirin, statin, and beta daniel. She will likely be a candidate for noninvasive ischemic testing as an outpatient in the future. Telemetry shows no evidence of sustained arrhythmia. Nam Vega MD [facility] Continue telemetry? No
--- NOTE | 2016-11-05 13:20 | PN- Att Addend ---
Attending Addendum Attending Brief Note Events over the weekend noted, legs are wrapped, the lab called this morning stating that 2 blood cultures are growing gram-negative rods. Patient is a febrile blood pressure is stable. Appreciate managed services consultant implement and recommendations my troponins are slowly trending down her white count is down a little bit. We'll continue IV antibiotics and monitor closely in a.m. get the physical therapy evaluation Intake & Output 11/05 1600 11/05 0800 11/05 0000 11/04 1600 11/04 0800 11/04 0000 Intake Total 950 2900 Output Total 150 450 Balance -337 523 9570 Intake, IV 700 2500 Intake, Oral 250 400 Output, Urine 150 450 Patient 182 lb 182 lb Weight Current Medications Sig/Michael Start time Last Medication Dose Route Stop Time Status Admin Acetaminophen 650 MG Q6P PRN 11/04 0730 AC PO Ampicillin Sodium/ 3,000 MG Q12 11/04 1000 AC 11/05 Sulbactam Sodium IV 1001 Sodium Chloride 100 ML Aspirin 81 MG DAILY 11/05 1000 AC 11/05 PO 0954 Atorvastatin Calcium 80 MG 1700 11/05 1700 AC PO Heparin Sodium 5,000 UNIT Q8 11/04 1400 AC 11/05 (Porcine) SC 0620 Ibuprofen 600 MG Q6P PRN 11/04 0730 AC PO Metoprolol Tartrate 12.5 MG BID 11/04 2200 AC 11/05 PO 0954 Oxycodone/ 1 TAB Q6P PRN 11/04 0730 AC 11/05 Acetaminophen PO 0859 Potassium Chloride 40 MEQ ONCE ONE 11/05 1115 DC 11/05 PO 11/05 1116 1150 Potassium Chloride 60 MEQ ONCE ONE 11/04 1615 DC 11/04 PO 11/04 1616 1716 Sodium Chloride 1,000 ML Q13H 11/04 0900 DC 11/04 IV 11/04 2159 0927 Laboratory Tests 11/05/16 0640: Anion Gap 7, Estimated GFR 39 L, Glucose 109 H, Calcium 8.6, Phosphorus 3.2, Magnesium 2.0, Total Bilirubin 1.1, AST 94 H, ALT 70 H, Albumin 2.9 L, CBC w Diff NO MAN DIFF REQ, RBC 3.37 L, MCV 88.1, MCH 28.8, RDW 15.4 H, Gran % 90.6 H, Lymphocytes % 6.2 L, Monocytes % 3.2, Eosinophils % 0, Basophils % 0 L, Absolute Granulocytes 11.2 H, Absolute Lymphocytes 0.8 L, Absolute Monocytes 0.4, Absolute Eosinophils 0, Absolute Basophils 0, PUBS MCHC 32.6 L 11/04/16 1415: Troponin I 0.79 *H 11/04/16 1415: Anion Gap 10, Estimated GFR 39 L, Glucose 126 H, Calcium 8.4, Phosphorus 3.7, Magnesium 1.8, Total Bilirubin 1.0, AST 55 H, ALT 45, Albumin 3.0 L 11/04/16 0937: Troponin I 1.06 *H 11/04/16 0937: Lactic Acid 1.6 11/04/16 0610: Urinalysis LIGHT H, Urine Color YEL, Urine Clarity HAZY H, Urine pH 6.0, Ur Specific [place] 1.020, Urine Protein 100 H, Urine Ketones NEG, Urine Nitrite NEG, Urine Bilirubin NEG, Urine Urobilinogen 0.2, Ur Leukocyte Esterase NEG, Ur Microscopic SEDIMENT EXAMINED, Urine RBC 5-10 H, Urine WBC 1-3 H, Ur Epithelial Cells FEW, Urine Bacteria FEW H, Hyaline Casts RARE H, Granular Casts 1-3 H, Urine Mucus MOD H, Urine Hemoglobin MOD H, Urine Glucose NEG 11/04/16 0535: Lactic Acid 2.9 H 11/04/16 0535: Anion Gap 19 H, Estimated GFR 30 L, BUN/Creatinine Ratio 28.1 H, Glucose 162 H, Hemoglobin A1c 6.8 H, Calcium 10.0, Total Bilirubin 0.9, AST 41 H, ALT 45, Alkaline Phosphatase 123, Troponin I 1.60 *H, Total Protein 8.1, Albumin 4.4, Globulin 3.7, Albumin/Globulin Ratio 1.2, Triglycerides 84, Cholesterol 177, LDL Cholesterol, Calc 51 L, HDL Cholesterol 114 H, Cholesterol/HDL Ratio 1.6, TSH 2.430, Free T4 1.45, CBC w Diff MAN DIFF ORDERED, RBC 4.28, MCV 89.1, MCH 29.1, RDW 14.8 H, MPV 8.2, Gran % 94.8 H, Lymphocytes % 2.9 L, Monocytes % 2.2, Eosinophils % 0, Basophils % 0.1, Absolute Granulocytes 22.4 H, Segmented Neutrophils 84 H, Band Neutrophils 11 H, Absolute Lymphocytes 0.7 L, Lymphocytes 3 L, Monocytes 2, Absolute Monocytes 0.5, Absolute Eosinophils 0, Absolute Basophils 0, Platelet Estimate ADEQUATE, Polychromasia 1+, PUBS MCHC 32.7 L Microbiology 11/04 1120 UPPER RESP: Surveillance Culture - COMP 11/04 1120 GI: Surveillance Culture - COMP 11/04 0610 URINE ROUT: Urine Culture - RES 11/04 0551 BLOOD: Blood Culture - RES GRAM NEGATIVE RODS 11/04 05 BLOOD: Blood Culture - RES GRAM NEGATIVE RODS
--- NOTE | 2016-11-05 15:04 | Patient Discharge Instructions ---
Discharge Instructions General Discharge Information You were seen/treated for: Skin infection - Cellulitis of both lower legs Special Instructions: Please follow-up with your PCP within a week of discharge. Please follow up with Dr George (vascular) within 1 week to arrange for faizan boots Please follow-up with wafer machine operator within a month of discharge Please continue the medication as advised. You may need noninvasive ischemic testing as an outpatient in the future. Diet Continue normal diet: No Recommended Diet: Heart Healthy Activity Full Activity/No Limits: No ( TOLERATED) Activity Self Limited: No Acute Coronary Syndrome Inclusion Criteria At DC or during hospital stay patient has or had the following: ACS DIAGNOSIS No Discharge Core Measures Meds if any: Prescribed or Continued at Discharge Meds if any: NOT Prescribed or Continued at Discharge Congestive Heart Failure Inclusion Criteria At DC or during hospital stay patient has or had the following: CHF DIAGNOSIS No Discharge Core Measures Meds if any: Prescribed or Continued at Discharge Meds if any: NOT Prescribed or Continued at Discharge Cerebrovascular accident Inclusion Criteria At DC or during hospital stay patient has or had the following: CVA/TIA Diagnosis No Discharge Core Measures Meds if any: Prescribed or Continued at Discharge Meds if any: NOT Prescribed or Continued at Discharge Venous thromboembolism Inclusion Criteria VTE Diagnosis No VTE Type NONE VTE Confirmed by (Test) NONE Discharge Core Measures - Per Current guidelines, there needs to be overlap - treatment for the first 5 days of Warfarin therapy. - If discharged on Warfarin prior to 5 days of - overlap therapy, the patient will need to be - assessed for post discharge needs including - *Post discharge parental anticoagulation - *Warfarin and/or parental anticoagulation education - *Follow up date to check INR post discharge At least 5 days overlap therapy as Inpatient No Meds if any: Prescribed or Continued at Discharge Warfarin No Note: Overlap Therapy is Warfarin and Anticoagulant Meds if any: NOT Prescribed or Continued at Discharge
[2016-11-05 16:27] VITALS: BP 130/60
[2016-11-06 00:26] VITALS: BP 170/60
--- NOTE | 2016-11-06 08:07 | NUR ---
NSG NOTE: PATIENT FOUND SPO2 88% ON RA WITH MORNING VITALS; PATIENT APPEARS TO HAVE INCREASE RESPIRATORY EFFORT AND RR 24; CRACKLES NOTED TO BILAT BASES LEFT GREATER THAN RIGHT; PLACE ON N/C 2L SPO2 NOW 92%; DR. ROGER GOLDMAN NOTIFIED AND CHEST XRAY RECOMMEDED; MD WILL ASSESS PATIENT NOW; WILL MONITOR
--- NOTE | 2016-11-06 08:22 | PN- Housestaff ---
Subjective Follow-up For: Bilateral lower leg cellulitis Gram-negative septicemia Complaints: pain in the lower legs and the back Tele-Events Since Last Visit: Off telemetry monitoring Subjective: Patient is seen and examined at the bedside. She was complaining of pain in the back and the lower leg. She was also complaining of dryness of the mouth along with the mouth ulcers. She denies of any chest pain, shortness of breath, cough, difficulty in swallowing,fever. Around 8:20AM, the nurse called me and told that patient is having low saturation of 88%, we started her on 2 liters of oxygen by nasal cannula. I talked to the patient and she told that she is also having a little bit difficulty in breathing. On examination, there were mild crepts on base of lung. We advised for CXR, EKG state and will plan according to results. Review of Systems Constitutional: Denies: no symptoms. Cardiovascular: Reports: edema, peripheral edema. Denies: chest pain, orthopena, palpitations. Respiratory: Reports: short of breath. Denies: cough, hemoptysis, orthopnea, sputum production, stridor, wheezing. Gastrointestinal: Denies: no symptoms. Genitourinary: Denies: no symptoms. Musculoskeletal: Reports: back pain, joint pain. Skin: Reports: change in skin color, erythema. Neurological/Psychological: Reports: depressed. Denies: anxiety. Objective Last 24 Hrs of Vital Signs/I&O Vital Signs Date Time Temp Pulse Resp B/P Pulse O2 O2 Flow FiO2 Ox Delivery Rate 11/06 0831 98.3 78 20 158/70 92 Nasal 2.0L Cannula 11/06 0026 98.5 79 20 170/60 90 Room Air 11/05 2329 170/70 11/05 1627 97.7 74 18 130/60 94 Room Air 11/05 0954 150/60 Intake & Output 11/06 1600 11/06 0800 11/06 0000 Intake Total 220 Output Total 550 100 Balance -330 -100 Intake, IV 100 Intake, Oral 120 Number 1 Bowel Movements Output, Urine 550 100 Physical Exam General Appearance: Alert, Oriented X3, Cooperative Skin: bilateral lower extremity edema and erythema with thickening of the skin. Cardiovascular: Normal S1, Normal S2 Lungs: Bilateral lower lobe crackles Abdomen: Soft, No Tenderness Neurological: Normal Speech Extremities: bilateral lower leg tenderness, erythema, nonpitting edema Vascular: cannt be accesed because of lower leg swelling Current Medications: Current Medications Sig/Michael Start time Last Medication Dose Route Stop Time Status Admin Acetaminophen 650 MG Q6P PRN 11/04 0730 AC PO Ampicillin Sodium/ 3,000 MG Q12 11/04 1000 AC 11/05 Sulbactam Sodium IV 2324 Sodium Chloride 100 ML Aspirin 81 MG DAILY 11/05 1000 AC 11/05 PO 0954 Atorvastatin Calcium 80 MG 1700 11/05 1700 AC 11/05 PO 1629 Heparin Sodium 5,000 UNIT Q8 11/04 1400 AC 11/06 (Porcine) SC 0600 Ibuprofen 600 MG Q6P PRN 11/04 0730 AC PO Metoprolol Tartrate 12.5 MG BID 11/04 2200 AC 11/05 PO 2329 Oxycodone/ 1 TAB Q6P PRN 11/04 0730 AC 11/06 Acetaminophen PO 0713 Potassium Chloride 40 MEQ ONCE ONE 11/05 1115 DC 11/05 PO 11/05 1116 1150 Last 24 Hrs of Lab/Luis Results Last 24 Hrs of Labs/Mics: Laboratory Tests 11/06/16 0615: Sodium Pending, Potassium Pending, Chloride Pending, Carbon Dioxide Pending, Anion Gap Pending, BUN Pending, Creatinine Pending, BUN/Creatinine Ratio Pending , CBC w Diff Pending, WBC Pending, RBC Pending, Hgb Pending, Hct Pending, MCV Pending, MCH Pending, RDW Pending, Plt Count Pending, MPV Pending, Gran % Pending, Lymphocytes % Pending, Monocytes % Pending, Eosinophils % Pending, Basophils % Pending, Absolute Granulocytes Pending, Absolute Lymphocytes Pending , Absolute Monocytes Pending, Absolute Eosinophils Pending, Absolute Basophils Pending, PUBS MCHC Pending Assessment/Plan Assessment: Patient is an 86-year-old female with significant past medical history of hypertension, peripheral vascular disease, recurrent cellulitis , presented with chief complaints of fever and chills. Plan - PE under evalaution - * In the morning patient had an episode of acute shortness of breath, and she desaturated to 88% on room air. We started her on 2 liters of oxygen. We also did chest x-ray which did not show any evidence of aspiration pneumonia/CHF. Discuss with Dr. Oswald, he advised to discuss with the resident, to evaluate if patient is in need for CT chest. Letter on we discussed and planned that we will do D dimer, if D Dimer is low than patient doesnt have PE, if very high than we will do CTA. * We also gave Inj Lasix 20mg IV once Bilateral lower leg cellulitis -probably secondary to venous stasis and peripheral vascular disease. * Blood culture showing gram-negative rods * We stopped Unysyn and started on inj ceftriaxone 1gm IV OD on 11/06/2016. * Vitals every shift * Strict intake output charting * We will follow wound consult recommendation Demand ischemia - * Troponins is already trended down * Patient denies any symptoms of chest pain, shortness of breath * We will follow cardiology recommendation CKD - Cr -1.2 * We'll regularly monitor creatinine Diet -heart healthy diet DVT prophylaxis- Heparin Code status -FC Problem List: 1. Bilateral lower leg cellulitis 2. Demand ischemia 3. Gram negative septicemia Pain Ratin Pain Location: Bilateral lower legs and the back Pain Goal: Remain pain free Pain Plan: Mild to moderate, avoid NSAIDs Tomorrow's Labs & Rationales: BEP -to follow-up with low K and high creatinine CBC -follow-up with septicemia and low hemoglobin DVT/Prophylaxis: mechanical, pharmacological
[2016-11-06 08:27] LABS: ABSOLUTE BASOPHIL COUNT 0 /CUMM (0.0-0.2); ABSOLUTE EOSINOPHIL COUNT 0.1 /CUMM (0.0-0.7); ABSOLUTE GRANULOCYTE CT 11.5 /CUMM (1.4-6.5); ABSOLUTE LYMPH COUNT 1.3 /CUMM (1.2-3.4); ABSOLUTE MONOCYTE COUNT 0.4 /CUMM (0.10-0.60); BASOPHIL % 0.3 % (0.0-2.0); EOSINOPHIL % 0.8 % (0-5); GRANULOCYTE % 85.9 % (42.2-75.2); HEMATOCRIT 32.5 % (37-47); MEAN CORPUSCULAR HGB 28.9 PG (27.0-31.0); MEAN CORPUSCULAR HGB CONC 32.6 G/DL (33.0-37.0); MEAN CORPUSCULAR VOLUME 88.5 FL (81.0-99.0); MEAN PLATELET VOLUME 8.7 FL (7.4-10.4); RBC DISTRIBUTION WIDTH 15.5 % (11.5-14.5); RED BLOOD CELL CT 3.67 /CUMM (4.20-5.40)
[2016-11-06 08:31] VITALS: BP 158/70
--- NOTE | 2016-11-06 08:50 | RADIOLOGY REPORT ---
EXAMINATION: XR PORTABLE CHEST CLINICAL INFORMATION: Shortness of breath. Gram-negative sepsis and cellulitis. COMPARISON: CXR from 11/04/2016. TECHNIQUE: Portable AP view of the chest was obtained. FINDINGS: Cardiomegaly and stable prominence of central pulmonary vessels without peripheral interstitial edema or pleural effusion. There is apparent thickening of peribronchial interstitium in the perihilar regions. There are a few scattered linear and subtle hazy opacities in both lungs. Thoracic aorta is calcified. Bone density is diffusely decreased. No acute skeletal findings. IMPRESSION: 1. Cardiomegaly and vascular congestion without peripheral interstitial edema or pleural effusion. 2. Apparent thickening of peribronchial interstitium which could be a manifestation of airway inflammation and/or mild edema of the axial interstitium. Subtle linear, hazy opacities in the lungs from atelectasis and/or infiltrates. Overall, no significant change compared to prior exam.
[2016-11-06 09:18] LABS: WHITE BLOOD CELL COUNT 13.4 /CUMM (4.8-10.8)
--- NOTE | 2016-11-06 13:12 | PN- Att Addend ---
Attending Addendum Attending Brief Note Patient states she didn't have a good night, her back is hurting her a lot in the right hip is very painful but the leg feels about the same. Patient is febrile. Her vital signs are stable no major changes on physical patient got up a little bit but still very weak. Her urine culture was negative the blood cultures are growing Serratia M, the white count slightly higher than yesterday still lower than on admission. Patient was little short of breath earlier but chest x-ray was obtained and an EKG, which check the results and will continue IV antibiotic therapy consider an x-ray of the right hip and follow-up the leg Current Medications Sig/Michael Start time Last Medication Dose Route Stop Time Status Admin Acetaminophen 650 MG Q6P PRN 11/04 0730 AC PO Ampicillin Sodium/ 3,000 MG Q12 11/04 1000 AC 11/06 Sulbactam Sodium IV 1037 Sodium Chloride 100 ML Aspirin 81 MG DAILY 11/05 1000 AC 11/06 PO 1037 Atorvastatin Calcium 80 MG 1700 11/05 1700 AC 11/05 PO 1629 Heparin Sodium 5,000 UNIT Q8 11/04 1400 AC 11/06 (Porcine) SC 0600 Ibuprofen 600 MG Q6P PRN 11/04 0730 DC PO Metoprolol Tartrate 12.5 MG BID 11/04 2200 AC 11/06 PO 1037 Oxycodone/ 1 TAB Q6P PRN 11/04 0730 AC 11/06 Acetaminophen PO 0713 Sodium Chloride 1,000 ML Q20H 11/06 0845 AC 11/06 IV 1036 Laboratory Tests 11/06/16 0615: Anion Gap 8, Estimated GFR 42 L, BUN/Creatinine Ratio 25.0, CBC w Diff NO MAN DIFF REQ, RBC 3.67 L, MCV 88.5, MCH 28.9, RDW 15.5 H, MPV 8.7, Gran % 85.9 H, Lymphocytes % 9.7 L, Monocytes % 3.3, Eosinophils % 0.8, Basophils % 0.3, Absolute Granulocytes 11.5 H, Absolute Lymphocytes 1.3, Absolute Monocytes 0.4, Absolute Eosinophils 0.1, Absolute Basophils 0, PUBS MCHC 32.6 L 11/05/16 0640: Anion Gap 7, Estimated GFR 39 L, Glucose 109 H, Calcium 8.6, Phosphorus 3.2, Magnesium 2.0, Total Bilirubin 1.1, AST 94 H, ALT 70 H, Albumin 2.9 L, CBC w Diff NO MAN DIFF REQ, RBC 3.37 L, MCV 88.1, MCH 28.8, RDW 15.4 H, Gran % 90.6 H, Lymphocytes % 6.2 L, Monocytes % 3.2, Eosinophils % 0, Basophils % 0 L, Absolute Granulocytes 11.2 H, Absolute Lymphocytes 0.8 L, Absolute Monocytes 0.4, Absolute Eosinophils 0, Absolute Basophils 0, PUBS MCHC 32.6 L 11/04/16 1415: Troponin I 0.79 *H 11/04/16 1415: Anion Gap 10, Estimated GFR 39 L, Glucose 126 H, Calcium 8.4, Phosphorus 3.7, Magnesium 1.8, Total Bilirubin 1.0, AST 55 H, ALT 45, Albumin 3.0 L Vital Signs Date Time Temp Pulse Resp B/P Pulse O2 O2 Flow FiO2 Ox Delivery Rate 11/06 1037 158/78 11/06 0831 98.3 78 20 158/70 92 Nasal 2.0L Cannula Continue to replace potassium
[2016-11-06 16:40] VITALS: BP 144/70
--- NOTE | 2016-11-06 17:30 | Cons- Infect Disease ---
General Information and HPI Consulting Request Date of Consult: 11/06/16 Requested By: NIYA ARRIETA MD Reason for Consult: Positive blood cultures for Serratia Source of Information: patient History of Present Illness: This is an 86-year-old woman with a history of hypertension and venous insufficiency, followed weekly by Vascular surgery for bilateral lower extremity erythema and edema, with intermittent placement of an Unna boot on both lower extremities for the past year, with little improvement reported over the last several months, status post Unna boot placement on the day prior to admission, admitted on November 04 after she presented to the emergency room with the acute onset of fevers and chills beginning several hours after the Unna boot placement. On admission she was afebrile. Laboratory data revealed a white blood cell count of 24,000, with 84 segs and 11 bands, BUN/creatinine 45 and 1.6 , AST/ALT 41 and 45, troponin 1.60. Urinalysis 5-10 RBC/1-3 WBCs. Chest x-ray revealed bibasilar opacities. Dopplers of both lower extremities were negative. She was given 1 dose of Ceftriaxone, then placed on Unasyn, and she was given several liters of IV fluids. On November 05 blood cultures 2 were reported positive for gram-negative rods, which have been identified as Serratia resistant to Unasyn. She has remained afebrile since admission and white blood cell count has decreased, along with her BUN/creatinine. She notes no change in her bilateral lower extremity discomfort, erythema or edema. This morning she did report mild dyspnea with desaturation, with no cough or chest pain. Allergies/Medications Allergies: Coded Allergies: pregabalin (From [facility]) (WEAK/DIZZY 11/04/16) Home Med List: Cholecalciferol (Vitamin D3) 1,000 UNIT TABLET 1 TAB PO DAILY SUPPLEMENT ( Reported) Furosemide 40 MG TABLET 1 TAB PO DAILY WATER PILL (Reported) Hydrochlorothiazide 50 MG TABLET 1 TAB PO DAILY WATER PILL (Reported) Ibuprofen 200 MG CAPSULE 1 TAB PO Q12P PRN PAIN (Reported) Multivitamin (Daily Multiple Vitamin) 1 EACH TABLET 1 TAB PO DAILY SUPPLEMENT (Reported) Tramadol HCl 50 MG TABLET 1 TAB PO Q4-6 PRN PRN PAIN (Reported) Past History Travel History Traveled to [place] past 21 day No Medical History Blood Transfusion Hx: No Neurological: NONE EENT: glaucoma, macular degeneration Cardiovascular: chronic venous insuff, hypertension Respiratory: NONE Gastrointestinal: NONE Hepatic: NONE Renal: NONE Musculoskeletal: NONE Psychiatric: NONE Endocrine: NONE Blood Disorders: NONE Cancer(s): NONE SCIENCE JOB TITLES/Reproductive: NONE History of MRSA: No History of VRE: No History of CDIFF: No Isolation History: Standard Influenza Vaccine: 06/21/16 Surgical History Surgical History: LEG BYPASS X4 Psychosocial History Where Do You Live? Home Services at Home: None Smoking Status: Never Smoked ETOH Use: denies use Illicit Drug Use: denies illicit drug use ECHO Results (as available) Date of last Echo 04/24/14 EF% 65 Review of Systems Review of Systems All Other Systems: Reviewed and Negative Exam & Diagnostic Data Last 24 Hrs of Vital Signs/I&O Vital Signs Date Time Temp Pulse Resp B/P Pulse O2 O2 Flow FiO2 Ox Delivery Rate 11/06 1640 99.4 109 20 144/70 95 Nasal 2.0L Cannula 11/06 1037 158/78 11/06 0831 98.3 78 20 158/70 92 Nasal 2.0L Cannula 11/06 0026 98.5 79 20 170/60 90 Room Air 11/05 2329 170/70 Intake & Output 11/06 1600 11/06 0800 11/06 0000 Intake Total 220 Output Total 550 100 Balance -330 -100 Intake, IV 100 Intake, Oral 120 Number 1 Bowel Movements Output, Urine 550 100 Physical Exam Other Physical Findings: She is awake and alert in no acute distress. She is afebrile. Skin reveals no rash. HEENT exam is negative. Neck is supple with no adenopathy. Lungs bibasilar crackles. Heart regular rhythm with no murmur. Abdomen is soft, nontender with positive bowel sounds. Back no CVA tenderness. Extremities bilateral lower extremity edema and erythema, mildly tender to palpation, with several small superficial ulcerations. Neuro is without focality. Last 24 Hours of Lab Results: Laboratory Tests 11/06 11/06 1620 0615 Chemistry Sodium (137 - 145 mmol/L) 137 Potassium (3.5 - 5.1 mmol/L) 3.4 L Chloride (98 - 107 mmol/L) 102 Carbon Dioxide (22 - 30 mmol/L) 27 Anion Gap (5 - 16) 8 BUN (7 - 17 mg/dL) 30 H Creatinine (0.5 - 1.0 mg/dL) 1.2 H Estimated GFR (>60 ml/min) 42 L BUN/Creatinine Ratio (7 - 25 %) 25.0 Coagulation D-Dimer (70 - 232 ng/ml) 1021 H Hematology CBC w Diff NO MAN DIFF REQ WBC (4.8 - 10.8 /CUMM) 13.4 H RBC (4.20 - 5.40 /CUMM) 3.67 L Hgb (12.0 - 16.0 G/DL) 10.6 L Hct (37 - 47 %) 32.5 L MCV (81.0 - 99.0 FL) 88.5 MCH (27.0 - 31.0 PG) 28.9 RDW (11.5 - 14.5 %) 15.5 H Plt Count (/CUMM) MPV (7.4 - 10.4 FL) 8.7 Gran % (42.2 - 75.2 %) 85.9 H Lymphocytes % (20.5 - 51.1 %) 9.7 L Monocytes % (1.7 - 9.3 %) 3.3 Eosinophils % (0 - 5 %) 0.8 Basophils % (0.0 - 2.0 %) 0.3 Absolute Granulocytes (1.4 - 6.5 /CUMM) 11.5 H Absolute Lymphocytes (1.2 - 3.4 /CUMM) 1.3 Absolute Monocytes (0.10 - 0.60 /CUMM) 0.4 Absolute Eosinophils (0.0 - 0.7 /CUMM) 0.1 Absolute Basophils (0.0 - 0.2 /CUMM) 0 PUBS MCHC (33.0 - 37.0 G/DL) 32.6 L Last 24 Hours of Luis Results: Blood cultures 2 November 04 positive for Serratia marcescens resistant to Unasyn and sensitive to Ceftriaxone, Ciprofloxacin and Bactrim Urine culture November 04 negative Diagnostic Data Recent Imaging Findings: Chest x-ray November 06 cardiomegaly with vascular congestion Dopplers of both lower extremities November 04 negative Assessment/Plan Assessment/Plan Impression: This is an 86-year-old woman with a history of bilateral lower extremity venous insufficiency, treated with Unna boots intermittently for the past year, with little improvement reported over the past few months, admitted on November 04 with the acute onset of fevers and chills beginning several hours after placement of the Unna boots, found to have a marked leukocytosis and positive blood cultures for Serratia. The most likely source of her sepsis appears to be cellulitis of both lower extremities, with no evidence of any GI or process. A pulmonary process is possible, but I suspect her chest x-ray findings are more likely secondary to fluid overload. Of interest the Serratia is resistant to Unasyn, though her white blood cell count has decreased, possibly in part secondary to the fluids, with her elevated H&H and BUN/creatinine on admission suggesting dehydration. Her respiratory distress this morning may suggest some degree of fluid overload, with her chest x-ray suggesting vascular congestion. Suggestion: 1. Vascular surgery evaluation 2. Consider need for diuretics for possible CHF (she is on Lasix prior to admission) 3. Elevation of both lower extremities 4. Discontinue Unasyn 5. Begin Ceftriaxone 1 g IV every 24 hours Consult Acknowledgment - Thank you for your consult request.
[2016-11-07] VITALS: BP 158/70
--- NOTE | 2016-11-07 07:19 | PN- Housestaff ---
See Addendum Subjective Follow-up For: Bilateral lower leg cellulitis Gram-negative septicemia Complaints: difficulty in swallowing due to dryness of throat, indigestion Tele-Events Since Last Visit: Off tele Subjective: Patient is seen and examined at the bedside. She was complaining of dryness of throat and indigestion. She claims her cellulitis is improving. She still needs pain medication for pain in the legs. She denies of any chest pain, shortness of breath, dizziness, abdominal pain. Review of Systems Constitutional: Reports: weakness. Cardiovascular: Reports: edema, peripheral edema. Denies: chest pain, orthopena, palpitations. Respiratory: Reports: orthopnea, short of breath. Denies: cough, hemoptysis, sputum production, stridor, wheezing. Gastrointestinal: Denies: abdominal pain, bloating, constipation, diarrhea. Genitourinary: Denies: no symptoms. Musculoskeletal: Reports: back pain, joint pain. Skin: Denies: no symptoms. Neurological/Psychological: Denies: anxiety, depressed. Objective Last 24 Hrs of Vital Signs/I&O Vital Signs Date Time Temp Pulse Resp B/P Pulse O2 O2 Flow FiO2 Ox Delivery Rate 11/07 0957 68 142/66 11/07 0903 98.7 68 18 142/66 96 Nasal Cannula 11/07 0800 Nasal 2.0L Cannula 11/07 0000 98 Nasal 2.0L Cannula 11/07 0000 98.3 102 22 158/70 98 Nasal 2.0L Cannula 11/06 2122 102 158/70 11/06 1640 99.4 109 20 144/70 95 Nasal 2.0L Cannula 11/06 1600 Nasal 2.0L Cannula Intake & Output 11/07 1600 11/07 0800 11/07 0000 Intake Total 240 480 Output Total 400 1000 Balance -160 -520 Intake, Oral 240 480 Number 0 1 Bowel Movements Output, Urine 400 1000 Physical Exam General Appearance: Alert, Oriented X3, Cooperative, No Acute Distress Cardiovascular: Normal S1, Normal S2 Lungs: mild basal crepts Abdomen: Soft, No Tenderness Neurological: Normal Speech Extremities: bilateral lower leg erythema, non pitting edema, dryness of skin Vascular: cannt accessed due to thikening of skin Current Medications: Current Medications Sig/Michael Start time Last Medication Dose Route Stop Time Status Admin Acetaminophen 650 MG Q6P PRN 11/04 0730 AC PO Ampicillin Sodium/ 3,000 MG Q12 11/04 1000 DC 11/06 Sulbactam Sodium IV 1037 Sodium Chloride 100 ML Aspirin 81 MG DAILY 11/05 1000 AC 11/07 PO 0957 Atorvastatin Calcium 80 MG 1700 11/05 1700 AC 11/06 PO 1803 Ceftriaxone Sodium 1,000 MG DAILY 11/07 1000 AC 11/07 IV 0958 Ceftriaxone Sodium 2,000 MG DAILY 11/06 1715 DC 11/06 IV 1842 Furosemide 40 MG DAILY 11/07 1000 AC 11/07 PO 0957 Furosemide 40 MG .STK-MED ONE 11/06 1757 DC IV 11/06 1758 Furosemide 20 MG ONCE ONE 11/06 1700 DC 11/06 IV 11/06 1701 1804 Heparin Sodium 5,000 UNIT Q8 11/04 1400 AC 11/07 (Porcine) SC 0608 Metoprolol Tartrate 12.5 MG BID 11/04 2200 AC 11/07 PO 0957 Omeprazole 20 MG DAILY AC 11/07 0954 AC PO Oxycodone/ 1 TAB Q6P PRN 11/04 0730 AC 11/07 Acetaminophen PO 0608 Patient Medication 1 ED .STK-MED ONE 11/06 1354 ND Teaching ED 11/06 1355 Potassium Chloride 40 MEQ ONCE ONE 11/06 1730 DC 11/06 PO 11/06 1731 1804 Sodium Chloride 1,000 ML Q20H 11/06 0845 DC 11/06 IV 1036 Last 24 Hrs of Lab/Luis Results Last 24 Hrs of Labs/Mics: Laboratory Tests 11/07/16 0610: Anion Gap 13, Estimated GFR 52 L, BUN/Creatinine Ratio 23.0, CBC w Diff NO MAN DIFF REQ, RBC 3.83 L, MCV 89.1, MCH 28.8, RDW 15.3 H, Gran % 76.2 H, Lymphocytes % 15.0 L, Monocytes % 5.7, Eosinophils % 2.7, Basophils % 0.4, Absolute Granulocytes 7.4 H, Absolute Lymphocytes 1.5, Absolute Monocytes 0.6, Absolute Eosinophils 0.3, Absolute Basophils 0, PUBS MCHC 32.3 L 11/06/16 1620: D-Dimer 1021 H Microbiology 11/07 0935 BLOOD: Blood Culture - RECD 11/07 0800 BLOOD: Blood Culture - COLB Assessment/Plan Assessment: Patient is an 86-year-old female with significant past medical history of hypertension, peripheral vascular disease, recurrent cellulitis , presented with chief complaints of fever and chills. Plan - CHF * We start patient on tab Lasix 40 mgs PO OD. * Strict intake output charting Bilateral lower leg cellulitis -probably secondary to venous stasis and peripheral vascular disease. * Blood culture showing gram-negative rods -serracia marcesce * We stopped Unysyn and started on inj ceftriaxone 1gm IV OD on 11/06/2016. We will continue it. * We also placed a consult for vascular surgeon and will follow their recommendations * Vitals every shift * Strict intake output charting * We will follow wound consult recommendation Demand ischemia - * Troponins is already trended down * Patient denies any symptoms of chest pain, shortness of breath * We will follow cardiology recommendation CKD - Cr -1.2 * We'll regularly monitor creatinine GERD - * We started patient on Cap Omeprazole 20 Mgs PO OD AC Diet -heart healthy diet DVT prophylaxis- Heparin Code status -FC Problem List: 1. Gram negative septicemia 2. Demand ischemia 3. Obesity 4. Hypertension 5. Bilateral lower leg cellulitis Pain Ratin Pain Location: lowe leg, back and right hip Pain Goal: Remain pain free Pain Plan: mild, avoid NSAIDs Tomorrow's Labs & Rationales: cbc, bep - f/u for septicemia and hypokalemia DVT/Prophylaxis: mechanical, pharmacological
[2016-11-07 08:23] LABS: ABSOLUTE BASOPHIL COUNT 0 /CUMM (0.0-0.2); ABSOLUTE EOSINOPHIL COUNT 0.3 /CUMM (0.0-0.7); ABSOLUTE GRANULOCYTE CT 7.4 /CUMM (1.4-6.5); ABSOLUTE LYMPH COUNT 1.5 /CUMM (1.2-3.4); ABSOLUTE MONOCYTE COUNT 0.6 /CUMM (0.10-0.60); BASOPHIL % 0.4 % (0.0-2.0); EOSINOPHIL % 2.7 % (0-5); GRANULOCYTE % 76.2 % (42.2-75.2); HEMATOCRIT 34.1 % (37-47); MEAN CORPUSCULAR HGB 28.8 PG (27.0-31.0); MEAN CORPUSCULAR HGB CONC 32.3 G/DL (33.0-37.0); MEAN CORPUSCULAR VOLUME 89.1 FL (81.0-99.0); RBC DISTRIBUTION WIDTH 15.3 % (11.5-14.5); RED BLOOD CELL CT 3.83 /CUMM (4.20-5.40); WHITE BLOOD CELL COUNT 9.8 /CUMM (4.8-10.8)
[2016-11-07 09:03] VITALS: BP 142/66
--- NOTE | 2016-11-07 09:17 | Discharge Summary ---
See Addendum Visit Information Visit Dates Admission Date: 11/04/16 Discharge Date: 11/11/17 Hospital Course Course Attending Physician: BERNY LANGE,NIYA Primary Care Physician: BERNY LANGE,[facility] Course: Mrs. Duffy is an 86-year-old lady with a history only of hypertension and bad peripheral vascular disease presents to the emergency room with a chief complaint of tactile fevers and chills. She has bad peripheral vascular disease for which she has been followed up with vascular surgeon over the course of last few years. She has bilateral lower extremity pitting edema and the Unna boot was put on by the vascular surgeon. Subsequently after she went home she started to notice chills, tactile fevers and shaking. Subsequently she came to the emergency room is currently being treated for cellulitis and was found to has a positive troponin which is thought to be secondary to demand ischemia. She was also noted to have a new right bundle branch block compared to EKG from 2010. An echocardiogram showed no obvious wall motion abnormalities and elevated troponins are likely due to demand ischemia. On admission she was afebrile. Laboratory data revealed a white blood cell count of 24,000, with 84 segs and 11 bands, BUN/creatinine 45 and 1.6, AST/ALT 41 and 45, troponin 1.60. Urinalysis 5-10 RBC/1-3 WBCs. Chest x-ray revealed bibasilar opacities. Dopplers of both lower extremities were negative. She was given 1 dose of Ceftriaxone, then placed on Unasyn, and she was given several liters of IV fluids. On November 05 blood cultures 2 were reported positive for gram-negative rods, which have been identified as Serratia resistant to Unasyn. She was managed for the following problems in the hospital: Gram negative nehal septicemia * This was thought to be most likely secondary to venous stasis and peripheral vascular disease. * As dictated above, she was initially given a dose of ceftriaxone, then started on unasyn. Blood cultures, came back positive for 2 out of 2 bottles of gram- negative rods which turned out to be Serratia, which was actually resistant to Unasyn, but sensitive to ceftriaxone and bactrim * We stopped Unysyn and started on IV ceftriaxone 1gm IV daily, with plans to change to Bactrim double strength 1 tablet every 12 hours to complete a 10-14 day course of ABx Elevated troponins/HTN * Thought to be 2/2 demand ischemia * She was evaluated by cardiology and evaluated with an echocardiogram. * Throughout her course, she did have episodes of dyspnea and chest x-ray showed vascular congestion without overt effusion or edema. Physical exam did reveal rales bilaterally on auscultation and she was gently diuresed with IV Lasix and then her home dose of by mouth Lasix was resumed. * Plan to resume home dose of lasix, as well as daily aspirin, statin, and beta daniel as seen in the CMR and follow up with cardiology in the outpt setting. * Additionally, low dose metoprolol 12.5 BID was started for HTN NADER * Diuresis initially held and Cr improved to WNL by the day of discharge. GERD * We started patient on Omeprazole 20 Mgs PO OD AC Bilateral lower leg cellulitis -probably secondary to venous stasis and peripheral vascular disease. She was seen by vascular surgery and he recommended to give patient on faizan boot for both feet but non availability of expert wound nurse pt was recommended tofollow-up with at wound center in a week . FULL CODE Heart healthy diet Allergies: Coded Allergies: pregabalin (From [facility]) (WEAK/DIZZY 11/04/16) Significant Procedures: SERVICE DATE: 11/04/16- EXAM TYPE: CARD - ECHOCARDIOGRAM BRIANDA DUFFY Age: 86 : 1930 Gender: F Exam Date: 11/04/2016 16:39 Exam Location: [facility] Ht (in): 65 Wt (lb): 182 BSA: 1.97 BP: 122 / 50 Ordering Physician: SHARAN BURTON M Referring Physician: Villa Leon M.D. Technologist: Kristine Cerna [facility] Room Number: 104 Indications: CHEST PAIN Rhythm: Technical Quality: Technically difficult study FINDINGS Left Ventricle Left ventricular cavity size normal. Left ventricular wall thickness mildly increased. No obvious regional wall motion abnormalities. Left ventricular ejection fraction is estimated at > 55 %. Right Ventricle Normal right ventricular size and function. Right Atrium Normal right atrial size. Left Atrium Left atrial size at the upper limits of normal. Mitral Valve Mild mitral annular calcification. No mitral stenosis. Trace mitral regurgitation. Aortic Valve Trileaflet aortic valve. No aortic stenosis. Mild aortic regurgitation. Tricuspid Valve Tricuspid valve not well visualized, grossly normal. Trace tricuspid regurgitation. Unable to estimate the right ventricular systolic pressure. Pulmonic Valve Pulmonic valve not well visualized, grossly normal. Pericardium Pericardium not well visualized. Echo free space anterior to the right ventricle likely represents a fat pad. Great Vessels Normal size aortic root. CONCLUSIONS Technically difficult study. Left ventricular cavity size normal. Left ventricular wall thickness mildly increased. No obvious regional wall motion abnormalities. Left ventricular ejection fraction is estimated at > 55 %. Normal right ventricular size and function. Left atrial size at the upper limits of normal. Unable to estimate the right ventricular systolic pressure. Pericardium not well visualized. Echo free space anterior to the right ventricle likely represents a fat pad. SERVICE DATE: 11/06/16 EXAM TYPE: RAD - XRY-PORTABLE CHEST XRAY EXAMINATION: XR PORTABLE CHEST CLINICAL INFORMATION: Shortness of breath. Gram-negative sepsis and cellulitis. COMPARISON: CXR from 11/04/2016. TECHNIQUE: Portable AP view of the chest was obtained. FINDINGS: Cardiomegaly and stable prominence of central pulmonary vessels without peripheral interstitial edema or pleural effusion. There is apparent thickening of peribronchial interstitium in the perihilar regions. There are a few scattered linear and subtle hazy opacities in both lungs. Thoracic aorta is calcified. Bone density is diffusely decreased. No acute skeletal findings. IMPRESSION: 1. Cardiomegaly and vascular congestion without peripheral interstitial edema or pleural effusion. 2. Apparent thickening of peribronchial interstitium which could be a manifestation of airway inflammation and/or mild edema of the axial interstitium. Subtle linear, hazy opacities in the lungs from atelectasis and/or infiltrates. Overall, no significant change compared to prior exam. Disposition Summary Disposition Principal Diagnosis: Gram negative septicemia Chronic peripheral vascular disease with edema Additional Diagnosis: Elevated troponins most likely secondary to demand ischemia Right bundle-branch block Hypertension Discharge Disposition: SNF Discharge Instructions General Discharge Information Code Status: Full Code Patient's Diet: heart healthy Patient's Activity: as tolerated Follow-Up Instructions/Appts: Patient is to follow up within 1 week with Vascular (Dr Zurita) for faizan boots and wound care. Medications at Discharge Discharge Medications: Continue taking these medications: Tramadol HCl (Tramadol HCl) 50 MG TABLET 1 Tablet ORAL EVERY 4-6 HOURS NEEDED as needed for PAIN Qty = 120 Comments: NOT GIVEN IN HOSPTIAL Hydrochlorothiazide (Hydrochlorothiazide) 50 MG TABLET 1 Tablet ORAL DAILY Qty = 90 Comments: NOT GIVEN IN HOSPITAL Furosemide (Furosemide) 40 MG TABLET 1 Tablet ORAL DAILY Qty = 90 Comments: Last Taken: 11/11/16 Time: 11:00 AM Ibuprofen (Ibuprofen) 200 MG CAPSULE 1 Tablet ORAL Every 12 hours as needed as needed for PAIN Comments: NOT GIVEN HOSPITAL Cholecalciferol (Vitamin D3) 1,000 UNIT TABLET 1 Tablet ORAL DAILY Comments: NOT GIVEN IN HOSPTIAL Multivitamin (Daily Multiple Vitamin) 1 EACH TABLET 1 Tablet ORAL DAILY Comments: NOT GIVEN IN HOSPITAL Start taking the following new medications: Atorvastatin Calcium (Atorvastatin Calcium) 80 MG TABLET 80 Milligram ORAL 5 PM Qty = 30 No Refills Comments: Last Taken: 11/11/16 Time: 4:30 PM Metoprolol Tartrate (Metoprolol Tartrate) 25 MG TABLET 12.5 Milligram ORAL TWICE DAILY Qty = 60 No Refills Comments: Last Taken: 11/11/16 Time: 11:00 AM Omeprazole (Omeprazole) 20 MG CAPSULE.DR 20 Milligram ORAL DAILY BEFORE BREAKFAST Qty = 30 No Refills Comments: Last Taken: 11/11/16 Time: 6:00 AM Sulfamethoxazole/Trimethoprim (Sulfamethoxazole-Tmp Ds Tablet) 800 MG-160 MG TABLET 1 Tablet ORAL TWICE DAILY Qty = 20 No Refills Comments: Last Taken:11/11/16 Time:11:00 AM Copies To: NIYA ARRIETA MD
--- NOTE | 2016-11-07 13:08 | PN- Att Addend ---
Attending Addendum Attending Brief Note Patient still a little short of breath, surgeon none going for another x-ray. Low grade temperature last evening. Appreciate Dr. Osuna's input and recommendations and antibiotics were changed by the white count is down a little bit today. Her keep working on the shortness of breath and the possible overload. We'll treat accordingly also have vascular reevaluate the legs Current Medications Sig/Michael Start time Last Medication Dose Route Stop Time Status Admin Acetaminophen 650 MG Q6P PRN 11/04 0730 AC PO Ampicillin Sodium/ 3,000 MG Q12 11/04 1000 DC 11/06 Sulbactam Sodium IV 1037 Sodium Chloride 100 ML Aspirin 81 MG DAILY 11/05 1000 AC 11/07 PO 0957 Atorvastatin Calcium 80 MG 1700 11/05 1700 AC 11/06 PO 1803 Ceftriaxone Sodium 1,000 MG DAILY 11/07 1000 AC 11/07 IV 0958 Ceftriaxone Sodium 2,000 MG DAILY 11/06 1715 DC 11/06 IV 1842 Furosemide 40 MG DAILY 11/07 1000 AC 11/07 PO 0957 Furosemide 40 MG .STK-MED ONE 11/06 1757 DC IV 11/06 1758 Furosemide 20 MG ONCE ONE 11/06 1700 DC 11/06 IV 11/06 1701 1804 Heparin Sodium 5,000 UNIT Q8 11/04 1400 AC 11/07 (Porcine) SC 0608 Metoprolol Tartrate 12.5 MG BID 11/04 2200 AC 11/07 PO 0957 Omeprazole 20 MG DAILY AC 11/07 0954 AC 11/07 PO 1118 Oxycodone/ 1 TAB Q6P PRN 11/04 0730 AC 11/07 Acetaminophen PO 0608 Patient Medication 1 ED .STK-MED ONE 11/06 1354 DC Teaching ED 11/06 1355 Potassium Chloride 40 MEQ ONCE ONE 11/06 1730 DC 11/06 PO 11/06 1731 1804 Sodium Chloride 1,000 ML Q20H 11/06 0845 DC 11/06 IV 1036 Laboratory Tests 11/07/16 0610: Anion Gap 13, Estimated GFR 52 L, BUN/Creatinine Ratio 23.0, CBC w Diff NO MAN DIFF REQ, RBC 3.83 L, MCV 89.1, MCH 28.8, RDW 15.3 H, Gran % 76.2 H, Lymphocytes % 15.0 L, Monocytes % 5.7, Eosinophils % 2.7, Basophils % 0.4, Absolute Granulocytes 7.4 H, Absolute Lymphocytes 1.5, Absolute Monocytes 0.6, Absolute Eosinophils 0.3, Absolute Basophils 0, PUBS MCHC 32.3 L 11/06/16 1620: D-Dimer 1021 H Microbiology Date/Time Procedure - Status Source Growth 11/07 0835 Blood Culture - RECD BLOOD 11/07 0800 Blood Culture - COLB BLOOD Vital Signs Date Time Temp Pulse Resp B/P Pulse O2 O2 Flow FiO2 Ox Delivery Rate 11/07 0957 68 142/66 11/07 0903 98.7 68 18 142/66 96 Nasal Cannula 11/07 0800 Nasal 2.0L Cannula
--- NOTE | 2016-11-07 13:24 | RADIOLOGY REPORT ---
EXAMINATION: XR HIP, RIGHT CLINICAL INFORMATION: Pain in hip. Not able to bear the leg. Evaluate for osteoarthritis. COMPARISON: None TECHNIQUE: Single AP view of the right hip. FINDINGS: Osteopenia. No definite acute fracture or dislocation on single view. Minimal degenerative change in the right hip joint with subchondral cystic change and sclerosis seen in the femoral head. No significant spurring noted. Mild enthesopathic changes at the greater trochanter. Right sacroiliac joint and pubic symphysis intact. No soft tissue calcifications. IMPRESSION: 1. Osteopenia. No definite acute fracture appreciated on single view. Would recommend 2 view right hip films in this elderly patient with osteopenia and inability to bear weight. 2. Mild degenerative change in the right hip joint.
--- NOTE | 2016-11-07 14:03 | PN- Infect Dx ---
Subjective Subjective: Afebrile. She still notes dyspnea but feels improved from yesterday. She notes discomfort in both lower extremities when they are touched. Objective Last 24 Hrs of Vital Signs/I&O Vital Signs Date Time Temp Pulse Resp B/P Pulse O2 O2 Flow FiO2 Ox Delivery Rate 11/07 0957 68 142/66 11/07 0903 98.7 68 18 142/66 96 Nasal Cannula 11/07 0800 Nasal 2.0L Cannula 11/07 0000 98 Nasal 2.0L Cannula 11/07 0000 98.3 102 22 158/70 98 Nasal 2.0L Cannula 11/06 2122 102 158/70 11/06 1640 99.4 109 20 144/70 95 Nasal 2.0L Cannula 11/06 1600 Nasal 2.0L Cannula Intake & Output 11/07 1600 11/07 0800 11/07 0000 Intake Total 240 480 Output Total 400 1000 Balance -160 -520 Intake, Oral 240 480 Number 0 1 Bowel Movements Output, Urine 400 1000 Physical Exam Other Physical Findings: She appears mildly dyspneic but in no acute distress Lungs bibasilar crackles Heart regular rhythm with no murmur Extremities decreased edema of both lower extremities; decreased erythema of the right lower extremity Results Last 24 Hours of Lab Results: Laboratory Tests 11/07 11/06 0610 1620 Chemistry Sodium (137 - 145 mmol/L) 139 Potassium (3.5 - 5.1 mmol/L) 3.8 Chloride (98 - 107 mmol/L) 103 Carbon Dioxide (22 - 30 mmol/L) 24 Anion Gap (5 - 16) 13 BUN (7 - 17 mg/dL) 23 H Creatinine (0.5 - 1.0 mg/dL) 1.0 Estimated GFR (>60 ml/min) 52 L BUN/Creatinine Ratio (7 - 25 %) 23.0 Coagulation D-Dimer (70 - 232 ng/ml) 1021 H Hematology CBC w Diff NO MAN DIFF REQ WBC (4.8 - 10.8 /CUMM) 9.8 RBC (4.20 - 5.40 /CUMM) 3.83 L Hgb (12.0 - 16.0 G/DL) 11.0 L Hct (37 - 47 %) 34.1 L MCV (81.0 - 99.0 FL) 89.1 MCH (27.0 - 31.0 PG) 28.8 RDW (11.5 - 14.5 %) 15.3 H Plt Count (/CUMM) Gran % (42.2 - 75.2 %) 76.2 H Lymphocytes % (20.5 - 51.1 %) 15.0 L Monocytes % (1.7 - 9.3 %) 5.7 Eosinophils % (0 - 5 %) 2.7 Basophils % (0.0 - 2.0 %) 0.4 Absolute Granulocytes (1.4 - 6.5 /CUMM) 7.4 H Absolute Lymphocytes (1.2 - 3.4 /CUMM) 1.5 Absolute Monocytes (0.10 - 0.60 /CUMM) 0.6 Absolute Eosinophils (0.0 - 0.7 /CUMM) 0.3 Absolute Basophils (0.0 - 0.2 /CUMM) 0 PUBS MCHC (33.0 - 37.0 G/DL) 32.3 L Last 24 Hours of Luis Results: No new cultures Assessment/Plan Impression: Improving with temperatures remaining normal and white blood cell count now normal on Ceftriaxone Day 1 of treatment for Serratia sepsis secondary to bilateral lower extremity cellulitis in the setting of venous insufficiency. Her dyspnea is likely secondary to mild CHF related to fluid overload on admission, and she appears somewhat improved with diuresis. Suggestion: 1. Cardiology follow-up regarding fluid status and diuresis 2. Vascular surgery evaluation. 3. Elevation of both lower extremities 4. Continue Ceftriaxone, with change to Bactrim DS 1 po every 12 hours if continues to improve to complete a 10-14 day course of treatment
--- NOTE | 2016-11-07 14:46 | PN- Cardiology ---
Subjective Subjective: Patient was having some mild dyspnea but her Lasix has been resumed and she is feeling better. Denies any chest pain. Objective Vital Signs and I&Os Vital Signs Date Time Temp Pulse Resp B/P Pulse O2 O2 Flow FiO2 Ox Delivery Rate 11/07 0957 68 142/66 11/07 0903 98.7 68 18 142/66 96 Nasal Cannula 11/07 0800 Nasal 2.0L Cannula 11/07 0000 98 Nasal 2.0L Cannula 11/07 0000 98.3 102 22 158/70 98 Nasal 2.0L Cannula 11/06 2122 102 158/70 11/06 1640 99.4 109 20 144/70 95 Nasal 2.0L Cannula 11/06 1600 Nasal 2.0L Cannula Intake & Output 11/07 1600 11/07 0800 11/07 0000 11/06 1600 11/06 0800 11/06 0000 Intake Total 740 240 480 820 220 Output Total 027 695 5551 550 100 Balance 140 -160 -520 820 -330 -100 Intake, IV 20 100 100 Intake, Oral 720 240 480 720 120 Number 0 1 1 Bowel Movements Output, Urine 788 709 9404 550 100 Physical Exam: General: no apparent distress. Alert. Eyes: No obvious scleral icterus. HEENT: No jugular venous distention or abnormal jugular venous pulsations. Cardiovascular: Normal intensity S1/S2. Regular. Respiratory: No rales or rhonchi Abdomen: Soft, nontender with no guarding or rebound tenderness. Musculoskeletal: No clubbing or cyanosis noted, bilateral lower extremity wrappings with edema Skin: Warm, stasis changes noted Neurologic: No gross focal deficits noted. Current Medications: Current Medications Sig/Michael Start time Last Medication Dose Route Stop Time Status Admin Acetaminophen 650 MG Q6P PRN 11/04 0730 AC PO Ampicillin Sodium/ 3,000 MG Q12 11/04 1000 DC 11/06 Sulbactam Sodium IV 1037 Sodium Chloride 100 ML Aspirin 81 MG DAILY 11/05 1000 AC 11/07 PO 0957 Atorvastatin Calcium 80 MG 1700 11/05 1700 AC 11/06 PO 1803 Ceftriaxone Sodium 1,000 MG DAILY 11/07 1000 AC 11/07 IV 0958 Ceftriaxone Sodium 2,000 MG DAILY 11/06 1715 DC 11/06 IV 1842 Furosemide 40 MG DAILY 11/07 1000 AC 11/07 PO 0957 Furosemide 40 MG .ST-MED ONE 11/06 1757 DC IV 11/06 1758 Furosemide 20 MG ONCE ONE 11/06 1700 DC 11/06 IV 11/06 1701 1804 Heparin Sodium 5,000 UNIT Q8 11/04 1400 AC 11/07 (Porcine) SC 1314 Metoprolol Tartrate 12.5 MG BID 11/04 2200 AC 11/07 PO 0957 Omeprazole 20 MG DAILY AC 11/07 0954 AC 11/07 PO 1118 Oxycodone/ 1 TAB Q6P PRN 11/04 0730 AC 11/07 Acetaminophen PO 1311 Potassium Chloride 40 MEQ ONCE ONE 11/06 1730 DC 11/06 PO 11/06 1731 1804 Sodium Chloride 1,000 ML Q20H 11/06 0845 DC 11/06 IV 1036 Results Last 48 Hrs of Labs/Mics: Laboratory Tests 11/07/16 0610: Anion Gap 13, Estimated GFR 52 L, BUN/Creatinine Ratio 23.0, CBC w Diff NO MAN DIFF REQ, RBC 3.83 L, MCV 89.1, MCH 28.8, RDW 15.3 H, Gran % 76.2 H, Lymphocytes % 15.0 L, Monocytes % 5.7, Eosinophils % 2.7, Basophils % 0.4, Absolute Granulocytes 7.4 H, Absolute Lymphocytes 1.5, Absolute Monocytes 0.6, Absolute Eosinophils 0.3, Absolute Basophils 0, PUBS MCHC 32.3 L 11/06/16 1620: D-Dimer 1021 H 11/06/16 0615: Anion Gap 8, Estimated GFR 42 L, BUN/Creatinine Ratio 25.0, CBC w Diff NO MAN DIFF REQ, RBC 3.67 L, MCV 88.5, MCH 28.9, RDW 15.5 H, MPV 8.7, Gran % 85.9 H, Lymphocytes % 9.7 L, Monocytes % 3.3, Eosinophils % 0.8, Basophils % 0.3, Absolute Granulocytes 11.5 H, Absolute Lymphocytes 1.3, Absolute Monocytes 0.4, Absolute Eosinophils 0.1, Absolute Basophils 0, PUBS MCHC 32.6 L Recent Imaging Studies: CXR yesterday 1. Cardiomegaly and vascular congestion without peripheral interstitial edema or pleural effusion. 2. Apparent thickening of peribronchial interstitium which could be a manifestation of airway inflammation and/or mild edema of the axial interstitium. Subtle linear, hazy opacities in the lungs from atelectasis and/or infiltrates. Overall, no significant change compared to prior exam. Assessment/Plan Assessment/Plan 1. Cellulitis/sepsis 2. Elevated troponins most likely secondary to demand ischemia 3. Right bundle-branch block 4. Hypertension 5. Renal insufficiency, improved 6. Chronic peripheral vascular disease with edema 7. Hypokalemia 8. Anemia Chest x-ray yesterday did show some vascular congestion without overt edema or pleural effusions. Patient was having some mild dyspnea but improving now that she has been restarted on her oral Lasix. Creatinine down to 1.0. Continue on daily aspirin, statin, and beta daniel. Antibiotics per the medical team and infectious disease. She will likely be a candidate for noninvasive ischemic testing as an outpatient in the future. Nam Vega MD [facility] Continue telemetry? Not applicable
[2016-11-07 16:37] VITALS: BP 118/76
[2016-11-08 00:13] VITALS: BP 160/80
--- NOTE | 2016-11-08 08:47 | PN- Housestaff ---
Subjective Follow-up For: Cellulitis Peripheral vascular disease Complaints: no complaints Tele-Events Since Last Visit: [employer] hold. Subjective: The patient was comfortable. Overnight-Complains of pain in right lower extremities, 4/5 with no radiation. Improved this morning. Did not have any pain this a.m. Blood pressure slightly elevated with Low-grade temperature 99.3. Bowel movement 1. Review of Systems Constitutional: Reports: see HPI. Objective Last 24 Hrs of Vital Signs/I&O Vital Signs Date Time Temp Pulse Resp B/P Pulse O2 O2 Flow FiO2 Ox Delivery Rate 11/08 0013 99.3 76 20 160/80 98 11/08 0000 Nasal 2.0L Cannula 11/07 1637 97.6 65 18 118/76 96 Nasal 2.0L Cannula 11/07 0957 68 142/66 11/07 0903 98.7 68 18 142/66 96 Nasal Cannula Intake & Output 11/08 1600 11/08 0800 11/08 0000 Intake Total 140 680 Output Total 250 1050 Balance -110 -370 Intake, IV 20 20 Intake, Oral 120 660 Number 1 Bowel Movements Output, Urine 250 1050 Patient 182 lb Weight Physical Exam General Appearance: No Acute Distress Other Physical Findings: General Exam: AAOx3, No acute distress, Skin: No rashes, no breakdown HEENT: PERRLA, EOMI Neck: Supple, No JVD No cervical lymphadenopathy CVS: Reg Rate, Normal S1,S2, No MGR Resp: Normal air entry, no ronchi/rales Abdomen: Soft, No tenderness, Normal Bowel Sounds Neuro: Normal Speech, Strength 5/5 b/l x 4 extremities, Sensation intact, CN III -XII NL, Reflexes 2+ Extremities: Bilateral lower extremities swelling., Erythema. Current Medications: Current Medications Sig/Michael Start time Last Medication Dose Route Stop Time Status Admin Acetaminophen 650 MG .STK-MED ONE 11/08 0025 DC PO 11/08 0026 Acetaminophen 650 MG Q6P PRN 11/04 0730 AC 11/08 PO 0028 Aspirin 81 MG DAILY 11/05 1000 AC 11/07 PO 0957 Atorvastatin Calcium 80 MG 1700 11/05 1700 AC 11/07 PO 1814 Ceftriaxone Sodium 1,000 MG DAILY 11/07 1000 AC 11/07 IV 0958 Furosemide 40 MG DAILY 11/07 1000 AC 11/07 PO 0957 Heparin Sodium 5,000 UNIT Q8 11/04 1400 AC 11/08 (Porcine) SC 0636 Metoprolol Tartrate 12.5 MG BID 11/04 2200 AC 11/07 PO 2042 Omeprazole 20 MG DAILY AC 11/07 0954 AC 11/08 PO 0636 Oxycodone/ 1 TAB Q6P PRN 11/04 0730 AC 11/08 Acetaminophen PO 0342 Last 24 Hrs of Lab/Luis Results Last 24 Hrs of Labs/Mics: Microbiology 11/07 1330 BLOOD: Blood Culture - RECD 11/07 0935 BLOOD: Blood Culture - RECD Assessment/Plan Assessment: Patient is an 86-year-old female with significant past medical history of hypertension, peripheral vascular disease, recurrent cellulitis , presented with chief complaints of fever and chills. Plan - CHF * Continue by mouth Lasix 40 mgs PO DAILY * Strict intake output charting Bilateral lower leg cellulitis -probably secondary to venous stasis and peripheral vascular disease. 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 Day 1. As per ID, if the patient continues to do well, we will change the antibiotic to by mouth Bactrim. (As per sensitivities of microbiology.). * We also placed a consult for vascular surgeon and will follow their recommendations * Vitals every shift * I's and O's * Follow wound care recommendation. Demand ischemia - * Troponins trended down * Patient denies any symptoms of chest pain, shortness of breath * We will follow cardiology recommendation CKD - * We'll regularly monitor creatinine GERD - * We started patient on Cap Omeprazole 20 Mgs PO OD AC Diet -heart healthy diet DVT prophylaxis- Heparin Code status -FC Problem List: 1. Sepsis 2. Elevated troponin 3. Coronary artery disease Pain Ratin Pain Location: Lateral lower extremities Pain Goal: Pain 4 or less Pain Plan: Percocet Tylenol Tomorrow's Labs & Rationales: Complete blood picture-to monitor for leukocytosis.
[2016-11-08 09:00] VITALS: BP 160/80
--- NOTE | 2016-11-08 10:06 | PN- Infect Dx ---
Subjective Subjective: Afebrile. She had a restless night and reports diarrhea this morning. She does note less shortness of breath. She reports lower extremity pain when her legs are touched. Objective Last 24 Hrs of Vital Signs/I&O Vital Signs Date Time Temp Pulse Resp B/P Pulse O2 O2 Flow FiO2 Ox Delivery Rate 11/08 09 99.0 75 20 160/80 97 Nasal 2.0L Cannula 11/08 0013 99.3 76 20 160/80 98 11/08 0000 Nasal 2.0L Cannula 11/07 1637 97.6 65 18 118/76 96 Nasal 2.0L Cannula Intake & Output 11/08 1600 11/08 0800 11/08 0000 Intake Total 140 680 Output Total 250 1050 Balance -110 -370 Intake, IV 20 20 Intake, Oral 120 660 Number 1 Bowel Movements Output, Urine 250 1050 Patient 182 lb Weight Physical Exam Other Physical Findings: She appears comfortable in no acute distress Lungs are clear Heart regular rhythm with no murmur Abdomen is soft, nontender with positive bowel sounds Extremities bilateral lower extremity erythema with decreased edema, slightly tender to palpation Results Last 24 Hours of Lab Results: No labs from today Last 24 Hours of Luis Results: Blood cultures November 07 negative Assessment/Plan Impression: Overall stable with temperatures and white blood cell count normal on Ceftriaxone Day 2 of treatment for Serratia sepsis presumed secondary to her bilateral lower extremity cellulitis in the setting of venous insufficiency. Her respiratory status has improved with diuretics, which have also reduced her lower extremity edema. Suggestion: 1. Stool for C. difficile if diarrhea persists 2. Vascular surgery evaluation (can do as outpatient) 3. Elevation of both lower extremities 4. Continue Ceftriaxone, but, if remains stable, would change to Bactrim DS 1 po every 12 hours to complete a 10-14 day course of treatment
[2016-11-08 16:32] VITALS: BP 156/57
--- NOTE | 2016-11-08 17:28 | PN- Att Addend ---
Attending Addendum Attending Brief Note Patient again had a bad night, one of the problems was diarrhea she stated was related to antibiotic therapy check the stools for C. difficile her left leg feels better about her right hip still hurts, she had an x-ray showed some osteopenia and degenerative changes and the radiologist suggested 2 other views of that hip this will be ordered. States the breathing is better. Had max was 99.3 last white count yesterday was 9800, and the blood cultures from yesterday are negative so far. We will continue present treatment him a no need for telemetry at this time Current Medications Sig/Michael Start time Last Medication Dose Route Stop Time Status Admin Acetaminophen 650 MG .STK-MED ONE 11/08 0025 DC PO 11/08 0026 Acetaminophen 650 MG Q6P PRN 11/04 0730 AC 11/08 PO 0028 Aspirin 81 MG DAILY 11/05 1000 AC 11/08 PO 1020 Atorvastatin Calcium 80 MG 1700 11/05 1700 AC 11/08 PO 1606 Ceftriaxone Sodium 1,000 MG DAILY 11/07 1000 AC 11/08 IV 1020 Furosemide 40 MG DAILY 11/07 1000 AC 11/08 PO 1020 Heparin Sodium 5,000 UNIT Q8 11/04 1400 AC 11/08 (Porcine) SC 1407 Metoprolol Tartrate 12.5 MG BID 11/04 2200 AC 11/08 PO 1021 Omeprazole 20 MG DAILY AC 11/07 0954 AC 11/08 PO 0636 Oxycodone/ 1 TAB Q6P PRN 11/04 0730 AC 11/08 Acetaminophen PO 1607 Ramelteon 8 MG AT BEDTIME 11/08 2200 AC PO Vital Signs Date Time Temp Pulse Resp B/P Pulse O2 O2 Flow FiO2 Ox Delivery Rate 11/08 1632 98.9 64 17 156/57 99 Nasal 2.0L Cannula 11/08 1600 Nasal 2.0L Cannula 11/08 1021 160/80 Intake & Output 11/08 1600 Intake Total 720 Output Total 600 Balance 120 Intake, Oral 720 Output, Urine 600 Patient 182 lb Weight
[2016-11-08 18:45] VITALS: BP 108/72
--- NOTE | 2016-11-08 18:56 | NUR ---
PATIENT ARRIVED ON FLOOR TELE @ 1830 WITH NO C/O PAIN OR DISCOMFORT. PATIENT IS A&O X 3. SPO2 96% ON 2L OF O2 VIA NC. NO C/O SOB. A X 2 TO BSC AND CHAIR. STATED THAT SHE IS TOO WEAK TO WALK. IV # 20 TO RW PLACED ON THE 11/06/16. SECOND IV # 22 LF PLACED ON 11/05/16. BOTH IV ARE FUNCTIONING WNL. BLE HAVE 3+ EDEMA. BLE APPEAR SCALY WITH SM OPEN AREAS NOTED. REPORT GIVEN TO NIGHT NURSE.
[2016-11-08 23:04] VITALS: BP 130/84
[2016-11-09 06:42] VITALS: BP 142/80
[2016-11-09 08:21] LABS: ABSOLUTE BASOPHIL COUNT 0 /CUMM (0.0-0.2); ABSOLUTE EOSINOPHIL COUNT 0.4 /CUMM (0.0-0.7); ABSOLUTE LYMPH COUNT 1.2 /CUMM (1.2-3.4); ABSOLUTE MONOCYTE COUNT 0.6 /CUMM (0.10-0.60); BASOPHIL % 0.3 % (0.0-2.0); EOSINOPHIL % 4.4 % (0-5); GRANULOCYTE % 75.9 % (42.2-75.2); MEAN CORPUSCULAR HGB 28.9 PG (27.0-31.0); MEAN CORPUSCULAR HGB CONC 32.7 G/DL (33.0-37.0); MEAN CORPUSCULAR VOLUME 88.4 FL (81.0-99.0); MEAN PLATELET VOLUME 8.8 FL (7.4-10.4); PLATELET COUNT 269 /CUMM (130-400); RBC DISTRIBUTION WIDTH 15.7 % (11.5-14.5); RED BLOOD CELL CT 3.62 /CUMM (4.20-5.40); WHITE BLOOD CELL COUNT 9.3 /CUMM (4.8-10.8)
--- NOTE | 2016-11-09 09:11 | PN- Housestaff ---
Subjective Follow-up For: Cellulitis Peripheral vascular disease Subjective: Patient was seen and examined this morning, she complined of lower back pain that radiate to bilateral lower extermities, sharp pain 9/10 associated with restless legs, patient asked to have percast Q4 instead of Q6 given the severety of her pain. 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 Vital signs are stable. Review of Systems Constitutional: Reports: see HPI. Objective Last 24 Hrs of Vital Signs/I&O Vital Signs Date Time Temp Pulse Resp B/P Pulse O2 O2 Flow FiO2 Ox Delivery Rate 11/09 09 80 138/78 11/09 0800 Nasal 2.0L Cannula 11/09 0642 98.5 82 20 142/80 98 11/09 0000 95 Nasal 2.0L Cannula 11/08 2304 98.6 95 20 130/84 97 Nasal 2.0L Cannula 11/08 2143 105 108/72 11/08 1845 98.0 105 18 108/72 96 Nasal 2.0L Cannula 11/08 1632 98.9 64 17 156/57 99 Nasal 2.0L Cannula 11/08 1600 Nasal 2.0L Cannula Intake & Output 11/09 1600 11/09 0800 04 0000 Intake Total 200 200 Output Total 600 800 Balance -400 -600 Intake, Oral 200 200 Output, Urine 600 800 Physical Exam General Appearance: Alert, Oriented X3, Cooperative, No Acute Distress Skin: No Rashes, No Breakdown, No Significant Lesion HEENT: Atraumatic, PERRLA, EOMI, Mucous Membr. moist/pink Neck: Supple, No JVD Cardiovascular: Regular Rate, Normal S1, Normal S2, No Murmurs Lungs: Clear to Auscultation, Normal Air Movement Abdomen: Normal Bowel Sounds, Soft, No Tenderness Neurological: Normal Speech, Strength at 5/5 X4 Ext, Normal Tone, Sensation Intact, Cranial Nerves 3-12 NL, Reflexes 2+ Extremities: No Clubbing, No Cyanosis, Bilateral cellulitis wrapped in bandages, no weakness or numbness Assessment/Plan Assessment: Patient is an 86-year-old female with significant past medical history of hypertension, peripheral vascular disease, recurrent cellulitis , presented with chief complaints of fever and chills. Plan - CHF * Continue by mouth Lasix 40 mgs PO DAILY * Strict intake output charting Bilateral lower leg cellulitis -probably secondary to venous stasis and peripheral vascular disease. 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 Day 1. As per ID, if the patient continues to do well, we will change the antibiotic to by mouth Bactrim. (As per sensitivities of microbiology.). * Waiting for vascular surgeon evaluation and recommendation * Vitals every shift * I's and O's * Follow wound care recommendation * Patient reported severe sharp pain at lower back radiated to bilateral lower extremity, will change Percocet to 1 tab every 4 stayed off every 6 Demand ischemia - * Troponins trended down * Patient denies any symptoms of chest pain, shortness of breath * Cardiac consultation was obtained, thanks the recommendation CKD - * Stable GERD - * Continue Omeprazole 20 Mgs PO OD AC Diet -heart healthy diet DVT prophylaxis- Heparin Code status -FC Problem List: 1. Bilateral lower leg cellulitis Pain Ratin Pain Location: Lower back and bilateral lower extremity Pain Goal: Pain 4 or less Pain Plan: Percocet 1 tab every 4 when necessary Tomorrow's Labs & Rationales: none
--- NOTE | 2016-11-09 13:28 | PN- Att Addend ---
Attending Addendum Attending Brief Note Finally patient started to look better sitting in the chair, oxygen was used removed will check her saturations, not short of breath this morning. Vital signs are stable. The legs seem a little better will have vascular check them also have physical therapy evaluated the patient in the morning to see she would need short-term rehabilitation. Current Medications Sig/Michael Start time Last Medication Dose Route Stop Time Status Admin Acetaminophen 650 MG Q6P PRN 11/04 0730 AC 11/08 PO 0028 Aspirin 81 MG DAILY 11/05 1000 AC 11/09 PO 0929 Atorvastatin Calcium 80 MG 1700 11/05 1700 AC 11/08 PO 1606 Ceftriaxone Sodium 1,000 MG DAILY 11/07 1000 AC 11/09 IV 0929 Furosemide 40 MG DAILY 11/07 1000 AC 11/09 PO 0929 Heparin Sodium 5,000 UNIT Q8 11/04 1400 AC 11/09 (Porcine) SC 0553 Metoprolol Tartrate 12.5 MG BID 11/04 2200 AC 11/09 PO 0929 Omeprazole 20 MG DAILY AC 11/07 0954 AC 11/09 PO 0553 Oxycodone/ 1 TAB Q4P PRN 11/09 1045 AC 11/09 Acetaminophen PO 1044 Oxycodone/ 1 TAB Q6P PRN 11/04 0730 DC 11/09 Acetaminophen PO 0552 Ramelteon 8 MG AT BEDTIME 11/08 2199 AC 11/08 PO 2143 Laboratory Tests 11/09/16 0728: CBC w Diff NO MAN DIFF REQ, RBC 3.62 L, MCV 88.4, MCH 28.9, RDW 15.7 H, MPV 8.8, Gran % 75.9 H, Lymphocytes % 12.6 L, Monocytes % 6.8, Eosinophils % 4.4, Basophils % 0.3, Absolute Granulocytes 7.0 H, Absolute Lymphocytes 1.2, Absolute Monocytes 0.6, Absolute Eosinophils 0.4, Absolute Basophils 0, PUBS MCHC 32.7 L Vital Signs Date Time Temp Pulse Resp B/P Pulse O2 O2 Flow FiO2 Ox Delivery Rate 11/09 1101 18 97 Room Air Room Air 11/09 928 80 138/78 11/09 0800 Nasal 2.0L Cannula 11/09 0642 98.5 82 20 142/80 98
--- NOTE | 2016-11-09 14:10 | RADIOLOGY REPORT ---
EXAMINATION: XR HIP, RIGHT CLINICAL INFORMATION: History of osteoporosis. Rule out fracture. Unable to bear weight. COMPARISON: November 07, 2016 TECHNIQUE: Two views of the right hip. FINDINGS: There is no evidence of acute fracture or dislocation of the right hip. Osteopenia is present. Hip joint space is maintained with some marginal spurring seen. Changes of enthesopathy seen involving the greater trochanter and right iliac bone. IMPRESSION: No acute fracture or dislocation of the right hip.
[2016-11-09 14:51] VITALS: BP 138/60
[2016-11-09 21:59] VITALS: BP 124/80
[2016-11-10 06:39] VITALS: BP 164/68
--- NOTE | 2016-11-10 08:13 | PN- Housestaff ---
Subjective Follow-up For: CELLULITIS. Subjective: Patient is seen and examined at bedside. She is endorsing lower extremity pain which she states is limiting her mobility. However she does not report any other complaints including shortness of breath, chest pain, palpitation, dizziness, fever, chills, weakness, nausea, vomiting or abdominal pain. No acute overnight event reported by nursing staff. Review of Systems Constitutional: Reports: no symptoms. Objective Last 24 Hrs of Vital Signs/I&O Vital Signs Date Time Temp Pulse Resp B/P Pulse O2 O2 Flow FiO2 Ox Delivery Rate 11/10 1449 Room Air Room Air 11/10 1233 98.5 84 18 140/60 11/10 0925 84 158/62 11/10 0639 98.5 86 18 164/68 95 Room Air 11/09 2217 92 124/80 11/09 2159 97.2 92 20 124/80 98 Room Air 11/09 1600 96 Room Air Room Air Intake & Output 11/10 1600 11/10 0800 11/10 0000 Intake Total 600 600 Output Total 700 650 600 Balance -100 -650 0 Intake, Oral 600 600 Number 1 1 2 Bowel Movements Output, Urine 700 650 600 Physical Exam General Appearance: Alert, Oriented X3, Cooperative Other Physical Findings: Skin: No Rashes, No Breakdown, No Significant Lesion HEENT: Atraumatic, PERRLA, EOMI, Mucous Membr. moist/pink Neck: Supple, No JVD Cardiovascular: Regular Rate, Normal S1, Normal S2, No Murmurs Lungs: Clear to Auscultation, Normal Air Movement Abdomen: Normal Bowel Sounds, Soft, No Tenderness Neurological: Normal Speech, Strength at 5/5 X4 Ext, Normal Tone, Sensation Intact, Cranial Nerves 3-12 NL, Reflexes 2+ Extremities: No Clubbing, No Cy Current Medications: Current Medications Sig/Michael Start time Last Medication Dose Route Stop Time Status Admin Acetaminophen 650 MG Q6P PRN 11/04 0730 AC 11/08 PO 0028 Aspirin 81 MG DAILY 11/05 1000 AC 11/10 PO 0924 Atorvastatin Calcium 80 MG 1700 11/05 1700 AC 11/09 PO 1628 Ceftriaxone Sodium 1,000 MG DAILY 11/07 1000 AC 11/10 IV 0927 Furosemide 40 MG DAILY 11/07 1000 AC 11/10 PO 0925 Heparin Sodium 5,000 UNIT Q8 11/04 1400 AC 11/10 (Porcine) SC 1312 Metoprolol Tartrate 12.5 MG BID 11/04 2200 AC 11/10 PO 0925 Omeprazole 20 MG DAILY AC 11/07 0954 AC 11/10 PO 0641 Oxycodone/ 1 TAB Q4P PRN 11/09 1045 AC 11/10 Acetaminophen PO 0925 Patient Medication 1 ED .STK-MED ONE 11/10 1351 DC Teaching ED 11/10 1352 Ramelteon 8 MG AT BEDTIME 11/08 2200 AC 11/09 PO 2217 Last 24 Hrs of Lab/Luis Results Last 24 Hrs of Labs/Mics: Microbiology 11/09 1630 STOOL: Clostridium difficile Toxin A & B - COMP Assessment/Plan Assessment: Patient is an 86-year-old female with significant past medical history of hypertension, peripheral vascular disease, recurrent cellulitis , presented with chief complaints of fever and chills. Plan - CHF * Continue by mouth Lasix 40 mgs PO DAILY * Strict intake output charting Bilateral lower leg cellulitis -probably secondary to venous stasis and peripheral vascular disease. 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 Stool C. difficile obtained is negative. Continue to monitor for any increased loose stools, fever or leukocytosis. Demand ischemia - * Troponins trended down, ruled out ACS. Most likely demand ischemia in the setting of sepsis.Cardiology recommendation was obtained (appreciated) CKD - * Stable GERD - * Continue Omeprazole 20 Mgs PO OD AC Diet -heart healthy diet DVT prophylaxis- Heparin Code status -FC Problem List: 1. Sepsis 2. Cellulitis Pain Ratin Pain Location: lower extremities Pain Goal: Remain pain free Pain Plan: per pain pathway Tomorrow's Labs & Rationales: none
--- NOTE | 2016-11-10 11:08 | PN- Att Addend ---
Attending Addendum Attending Brief Note Patient sitting in the chair, daughter at the bedside she is a febrile vital signs are stable he was still has a lot of pain in that leg but the x-ray showed no fractures. No other changes on physical. Legs about the same. Appreciate infectious diseases input and recommendations. Switched to by mouth antibiotics. Physical therapy suggest short-term rehabilitation, we'll start looking for a place 24 TOTALS 11/10 0000 11/09 0000 Intake Total 1400 1060 Output Total 1650 1650 Balance -250 -590 Intake, IV 20 Intake, Oral 1400 1040 Number 2 1 Bowel Movements Output, Urine 1650 1650 Patient 182 lb Weight Current Medications Sig/Michael Start time Last Medication Dose Route Stop Time Status Admin Acetaminophen 650 MG Q6P PRN 11/04 0730 AC 11/08 PO 0028 Aspirin 81 MG DAILY 11/05 1000 AC 11/10 PO 0924 Atorvastatin Calcium 80 MG 1700 11/05 1700 AC 11/09 PO 1628 Ceftriaxone Sodium 1,000 MG DAILY 11/07 1000 AC 11/10 IV 0927 Furosemide 40 MG DAILY 11/07 1000 AC 11/10 PO 0925 Heparin Sodium 5,000 UNIT Q8 11/04 1400 AC 11/10 (Porcine) SC 0641 Metoprolol Tartrate 12.5 MG BID 11/04 2200 AC 11/10 PO 0925 Omeprazole 20 MG DAILY AC 11/07 0954 AC 11/10 PO 0641 Oxycodone/ 1 TAB Q4P PRN 11/09 1045 AC 11/10 Acetaminophen PO 0925 Ramelteon 8 MG AT BEDTIME 11/08 2200 AC 11/09 PO 2217 Laboratory Tests 11/09/16 0728: CBC w Diff NO MAN DIFF REQ, RBC 3.62 L, MCV 88.4, MCH 28.9, RDW 15.7 H, MPV 8.8, Gran % 75.9 H, Lymphocytes % 12.6 L, Monocytes % 6.8, Eosinophils % 4.4, Basophils % 0.3, Absolute Granulocytes 7.0 H, Absolute Lymphocytes 1.2, Absolute Monocytes 0.6, Absolute Eosinophils 0.4, Absolute Basophils 0, PUBS MCHC 32.7 L Microbiology Date/Time Procedure - Status Source Growth 11/09 1630 Clostridium difficile Toxin A & B - RECD STOOL
--- NOTE | 2016-11-10 11:09 | PN- Infect Dx ---
Subjective Subjective: Afebrile. She notes left inner thigh pain, which she has had chronically, though states it is more severe than in the past. She notes difficulty in mobilizing, partly due to pain in both thighs. She notes no respiratory distress. She had 1 loose stool yesterday afternoon. Objective Last 24 Hrs of Vital Signs/I&O Vital Signs Date Time Temp Pulse Resp B/P Pulse O2 O2 Flow FiO2 Ox Delivery Rate 11/10 924 84 158/62 11/10 0639 98.5 86 18 164/68 95 Room Air 11/09 2217 92 124/80 11/09 2159 97.2 92 20 124/80 98 Room Air 11/09 1600 96 Room Air Room Air 11/09 1451 97.7 85 20 138/60 98 Room Air Intake & Output 11/10 1600 11/10 0800 11/10 0000 Intake Total 600 Output Total 650 600 Balance -650 0 Intake, Oral 600 Number 1 2 Bowel Movements Output, Urine 650 600 Physical Exam Other Physical Findings: She appears comfortable in no acute distress Lungs are clear Extremities left inner thigh tenderness, with no erythema or induration; bilateral lower extremity erythema, left greater than right, with minimal tenderness on palpation; persistent though decreased edema of both lower extremities Results Last 24 Hours of Lab Results: Laboratory Tests 11/10 727 Hematology CBC w Diff NO MAN DIFF REQ WBC (4.8 - 10.8 /CUMM) 9.3 RBC (4.20 - 5.40 /CUMM) 3.62 L Hgb (12.0 - 16.0 G/DL) 10.5 L Hct (37 - 47 %) 32.0 L MCV (81.0 - 99.0 FL) 88.4 MCH (27.0 - 31.0 PG) 28.9 RDW (11.5 - 14.5 %) 15.7 H Plt Count (130 - 400 /CUMM) 269 MPV (7.4 - 10.4 FL) 8.8 Gran % (42.2 - 75.2 %) 75.9 H Lymphocytes % (20.5 - 51.1 %) 12.6 L Monocytes % (1.7 - 9.3 %) 6.8 Eosinophils % (0 - 5 %) 4.4 Basophils % (0.0 - 2.0 %) 0.3 Absolute Granulocytes (1.4 - 6.5 /CUMM) 7.0 H Absolute Lymphocytes (1.2 - 3.4 /CUMM) 1.2 Absolute Monocytes (0.10 - 0.60 /CUMM) 0.6 Absolute Eosinophils (0.0 - 0.7 /CUMM) 0.4 Absolute Basophils (0.0 - 0.2 /CUMM) 0 PUBS MCHC (33.0 - 37.0 G/DL) 32.7 L Last 24 Hours of Luis Results: Blood cultures November 07 negative Stool C. difficile November 09 pending Recent Imaging Studies: X-ray of the right hip November 09 negative Assessment/Plan Impression: Overall stable with temperatures and white blood cell count remaining normal on Ceftriaxone Day 4 of treatment for Serratia sepsis presumed secondary to bilateral lower extremity cellulitis in the setting of venous insufficiency. Her left thigh pain may be secondary to a lymphangitis, though other vascular or musculoskeletal etiologies may need to be considered. Suggestion: 1. Follow-up stool C. difficile 2. Vascular surgery evaluation 3. Discontinue Ceftriaxone 4. Begin Bactrim DS 1 po every 12 hours to complete a 10-14 day course of treatment
[2016-11-10 12:33] VITALS: BP 140/60
[2016-11-10 15:42] VITALS: BP 134/60
--- NOTE | 2016-11-10 19:28 | NUR ---
ALERT AND ORIENTED X 3. VITAL SIGNS STABLE. DENIES CHEST PAIN. + PULSES ON ROOM AIR. RED BLE. BILAT LOWER EXTREMITIES ELEVATED. MEDICATION GIVEN FOR PAIN. PATIENT RESTING COMFORTABLY AT THIS TIME. WILL CONTINUE TO MONITOR
[2016-11-10 21:30] VITALS: BP 155/70
--- NOTE | 2016-11-11 06:29 | PN- Housestaff ---
Subjective Follow-up For: B/L LE venous changes Subjective: Pt is seen and examined at bedside. He does not endorse any acute compliants. No o/n event reported by nursing staff. Review of Systems Constitutional: Reports: no symptoms. Objective Last 24 Hrs of Vital Signs/I&O .. Physical Exam General Appearance: Alert, Oriented X3, Cooperative Cardiovascular: Regular Rate, Normal S1, Normal S2 Lungs: Normal Air Movement Abdomen: Normal Bowel Sounds, Soft, No Hepatospenomegaly Assessment/Plan Assessment: Patient is an 86-year-old female with significant past medical history of hypertension, peripheral vascular disease, recurrent cellulitis , presented with chief complaints of fever and chills. Plan - CHF * Continue by mouth Lasix 40 mgs PO DAILY * Strict intake output charting Bilateral lower leg cellulitis -probably secondary to venous stasis and peripheral vascular disease. 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 Stool C. difficile obtained is negative. Continue to monitor for any increased loose stools, fever or leukocytosis. Demand ischemia - * Troponins trended down, ruled out ACS. Most likely demand ischemia in the setting of sepsis.Cardiology recommendation was obtained (appreciated) CKD - * Stable GERD - * Continue Omeprazole 20 Mgs PO OD AC Diet -heart healthy diet DVT prophylaxis- Heparin Code status -FC Problem List: 1. Coronary artery disease Pain Ratin Pain Location: LE Pain Goal: Remain pain free Pain Plan: PER PAIN PATHWAY Tomorrow's Labs & Rationales: NONE-DISCHARGE
[2016-11-11 07:14] VITALS: BP 138/86
--- NOTE | 2016-11-11 13:34 | PN- Att Addend ---
Attending Addendum Attending Brief Note Feeling a little better her legs a little better and vascular surgeon will evaluate the legs before 7 disposition plans to short-term rehabilitation later on today. Patient is febrile no other changes on physical. IF Bed is available today will discharge and I will follow the patient at short-term rehabilitation see discharge summary and CMR is my need to follow with the wound Center as an outpatient Current Medications Sig/Michael Start time Last Medication Dose Route Stop Time Status Admin Acetaminophen 650 MG Q6P PRN 11/04 0730 AC 11/08 PO 0028 Aspirin 81 MG DAILY 11/05 1000 AC 11/11 PO 1106 Atorvastatin Calcium 80 MG 1700 11/05 1700 AC 11/10 PO 1610 Ceftriaxone Sodium 1,000 MG DAILY 11/07 1000 DC 11/10 IV 0927 Furosemide 40 MG DAILY 11/07 1000 AC 11/11 PO 1107 Heparin Sodium 5,000 UNIT Q8 11/04 1400 AC 11/11 (Porcine) SC 0601 Metoprolol Tartrate 12.5 MG BID 11/04 2200 AC 11/11 PO 1105 Omeprazole 20 MG DAILY AC 11/07 0954 AC 11/11 PO 0601 Oxycodone/ 1 TAB Q4P PRN 11/09 1045 AC 11/11 Acetaminophen PO 0602 Patient Medication 1 ED .STK-MED ONE 11/10 1351 DC Teaching ED 11/10 1352 Ramelteon 8 MG AT BEDTIME 11/08 2200 AC 11/09 PO 2217 Trimethoprim/ 1 TAB BID 11/10 2200 AC 11/11 Sulfamethoxazole PO 1107 Vital Signs Date Time Temp Pulse Resp B/P Pulse O2 O2 Flow FiO2 Ox Delivery Rate 11/11 1105 56 136/72 11/11 0714 97.8 67 20 138/86 96 Room Air Intake & Output 11/11 1600 Intake Total Output Total 250 Balance -250 Output, Urine 250
[2016-11-11 14:45] VITALS: BP 160/56
--- NOTE | 2016-11-11 15:31 | Cons- Vascular Surgery ---
General Information and HPI Consulting Request Date of Consult: 11/11/16 Requested By: NIYA ARRIETA MD History of Present Illness: 86-year-old lady who was admitted with positive blood cultures and sepsis. She has been treated with antibiotics and has defervesced. She has history of chronic venous insufficiency and has undergone bilateral superficial venous closure by Dr. Finney. She has been treated with bilateral Unna boots weekly before her admission to the hospital. Vascular surgery was asked to see the patient regarding her bilateral lower extremity discoloration and swelling. Allergies/Medications Allergies: Coded Allergies: pregabalin (From LYRICA) (WEAK/DIZZY 11/04/16) Home Med List: Cholecalciferol (Vitamin D3) 1,000 UNIT TABLET 1 TAB PO DAILY SUPPLEMENT ( Reported) Furosemide 40 MG TABLET 1 TAB PO DAILY WATER PILL (Reported) Hydrochlorothiazide 50 MG TABLET 1 TAB PO DAILY WATER PILL (Reported) Ibuprofen 200 MG CAPSULE 1 TAB PO Q12P PRN PAIN (Reported) Multivitamin (Daily Multiple Vitamin) 1 EACH TABLET 1 TAB PO DAILY SUPPLEMENT (Reported) Tramadol HCl 50 MG TABLET 1 TAB PO Q4-6 PRN PRN PAIN (Reported) Past History Medical History Blood Transfusion Hx: No Neurological: NONE EENT: glaucoma, macular degeneration Cardiovascular: chronic venous insuff, hypertension Respiratory: NONE Gastrointestinal: NONE Hepatic: NONE Renal: NONE Musculoskeletal: NONE Psychiatric: NONE Endocrine: NONE Blood Disorders: NONE Cancer(s): NONE 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 Home Services at Home: None Smoking Status: Never Smoked ETOH Use: denies use Illicit Drug Use: denies illicit drug use Review of Systems Review of Systems: PATIENT DENIES HEADACHE, DIZZINESS, COUGH, PALPITATION, DIARRHEA OR CONSTIPATION Exam & Diagnostic Data Vital Signs and I&O Vital Signs Date Time Temp Pulse Resp B/P Pulse O2 O2 Flow FiO2 Ox Delivery Rate 11/11 1445 97.9 68 20 160/56 95 Room Air 11/11 1105 56 136/72 11/11 0714 97.8 67 20 138/86 96 Room Air 11/10 2145 65 155/70 11/10 2130 97.9 65 18 155/70 97 Room Air 11/10 1542 97.8 64 18 134/60 97 Room Air Intake & Output 11/11 1600 11/11 0800 11/11 0000 11/10 1600 04/03 0800 11/10 0000 Intake Total 840 340 300 600 600 Output Total 250 100 300 700 650 600 Balance 590 240 0 -100 -650 0 Intake, Oral 840 340 300 600 600 Number 3 2 1 1 2 Bowel Movements Output, Urine 250 100 300 700 650 600 Physical Exam: Patient is alert and oriented 3 Cardiac vascular: Regular rate and rhythm Lungs: Clear to auscultation bilaterally Abdomen: Soft, nontender and nondistended Extremities: Bilateral lower extremity swelling and skin discoloration. There is no active ulcer or drainage. Assessment/Plan Assessment/Plan 86-year-old lady with history of chronic venous insufficiency has been admitted with sepsis. She was treated with antibiotics and has defervesced. Currently, there is no active infection of the legs. She will need Unna boot compression wraps which will be performed in my office in [place]. I will see her in my office after her discharge. Thank you for asking me to be involved in the care of this patient. Consult Acknowledgment - Thank you for your consult request. Attending MD Review Statement Attending Statement Attending MD Statement: examined this patient, discuss w/resident/PA/ASSOCIATE ART DIRECTOR
[2016-11-11] MEDS ORDERED: ATORVASTATIN CA80 M1 PO (17:25)
[2016-11-11] MEDS ORDERED: OMEPRAZOLE20 M2 PO (17:29)
[2016-11-11] MEDS ORDERED: METOPROLOL TART25 M1 PO (17:29)
[2016-11-11] MEDS ORDERED: SULFAMETHOXAZO1 EAC1 PO (17:29)
== END 2016-11-11 19:03 | DRG 872 ==
LOC: ENRESERVTM → ENRESERVDT → ERH 05:04 → 2NB 06:44 → 1NO 06:44 → ERHI 06:44 → ENTRNSPT 10:52 → EDTRNSPTSTS 10:56 → EDTRNSPT 10:56 → EDTRNSPTTYP 10:56 → CRI 11:20 → CMPTRNSPT 11:24 → 1NO 23:28 → 2NB 11-08 18:26
PROVIDERS: Dermatology; Emergency Medicine; Internal Medicine; Internal Medicine Endocrinology, Diabetes & Metabolism; ADMIT Internal Medicine
DX: A41.9 Sepsis, unspecified organism (principal); E87.2 Acidosis; L03.115 Cellulitis of right lower limb; I24.8 Other forms of acute ischemic heart disease; L03.116 Cellulitis of left lower limb; I10 Essential (primary) hypertension; I73.9 Peripheral vascular disease, unspecified; E87.6 Hypokalemia; H40.9 Unspecified glaucoma; H35.30 Unspecified macular degeneration
CPT/HCPCS: 1NSP; 2NBP; 2NBSP; 36415; 73501; 73502-RT; 81001; 82436; 87040; 87086; 93005; 93010; 93306; 93970; 96374; 97110-GO; 97116-GO; 97161-GP; 97530-GO; J0131; J0696; J1644; J1940; J3490

== ENCOUNTER 2017-09-11 11:06 | Inpatient (IN) | payer OTHER ==
[~2017-09-11] VITALS: Ht 160 cm; Wt 76.4 kg
[~2017-09-11 11:06] MED LIST: ATORVASTATIN CA80 M1 PO; DAILY MULTIPLE1 EACH PO; FUROSEMIDE40 M1 PO; HYDROCHLOROTHIA50 M1 PO; IBUPROFEN200 M3 PO; KEFLEX500 M1 PO; METOPROLOL TART25 M1 PO; OMEPRAZOLE20 M2 PO; POTASSIUM CHLO20 ME2 PO; PRESERVISION A1 EACH PO; SULFAMETHOXAZO1 EAC1 PO; TRAMADOL HCL50 M1 PO; VITAMIN D31000 UNI2 PO
--- NOTE | 2017-09-11 11:26 | ED GENERAL ADULT ---
History of Present Illness General Chief Complaint: General Adult Stated Complaint: BIBA WITH CELLULITIS Source: patient, family, old records Exam Limitations: no limitations Vital Signs & Intake/Output Vital Signs & Intake/Output Vital Signs Date Time Temp Pulse Resp B/P B/P Pulse O2 O2 Flow FiO2 Mean Ox Delivery Rate 09/12 0726 98.2 102 18 126/58 94 Room Air 09/11 2345 94 Room Air 09/11 2326 Room Air 09/11 2200 98.8 102 18 156/54 94 09/11 1919 98.2 106 17 170/77 97 Room Air 09/11 1728 98.2 101 18 180/100 96 Room Air 09/11 1505 97.5 18 172/82 97 ED Intake and Output 09/12 0000 09/11 1200 Intake Total 500 Output Total 400 Balance 100 Intake, IV 500 Output, Urine 400 Patient 115 lb 150 lb Weight Weight Reported by Patient Measurement Method Allergies Coded Allergies: duloxetine (From CYMBALTA) (SEVERE SCHREIBER, DIZZINESS 05/29/17) pregabalin (From LYRICA) (WEAK/DIZZY 11/04/16) Triage Note: BIBMariya FOLLOWING EPISODE OF LEG WEAKNESS STATES SHE LOWERED HERSELF TO GROUND TO PREVENT FALL DAUGHTER REPORTS EPISODE OF CONFUSION LAST NIGHT A&O X 3 NOW WORSENING OF BILATERAL LOWER EXT OVER PAST WEEK Triage Nurses Notes Reviewed? yes Onset: Gradual Duration: day(s): Timing: recent history Injury Environment: home Severity: severe HPI: 86yo female with hx of chronic venous insuffiency, Factor VIII deficiency presents to ED from [facility] c/o worsening swelling and pain of bilateral lower extremities. Patient states that today she was trying to walk and felt weak and off balance, she almost fell down however was able to lower herself to the ground. Patient states that after this episode she has not been able to walk due to her weakness and pain in her lower legs. 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 Over the past 2-3 days swelling, erythema, and pain have abruptly increased. Patient denies headache, abdominal pain, chest pain, dyspnea, nausea, vomiting, urinary symptoms, fevers. (Mariela JEAN-BAPTISTE,Rhina Rodriguez) Reconcile Medications Acyclovir 400 MG TABLET 1 TAB PO BID ANTIVIRAL (Reported) Ammonium Lactate 12 % CREAM..G. 1 ARLIN TOP AD SKIN (Reported) Furosemide 40 MG TABLET 1 TAB PO DAILY WATER PILL (Reported) Multivitamin (Daily Multiple Vitamin) 1 EACH TABLET 1 TAB PO DAILY SUPPLEMENT (Reported) Omeprazole 20 MG CAPSULE.DR 1 CAP PO DAILY GI (Reported) Potassium Chloride 20 MEQ TAB.ER.PRT 1 TAB PO BID SUPPLEMENT (Reported) Prednisone 5 MG TABLET 1 TAB PO TID FACTOR VIII (Reported) Spironolactone 25 MG TABLET 1 TAB PO DAILY DIURETIC (Reported) Tramadol HCl 50 MG TABLET 1 TAB PO Q6H PRN PAIN (Reported) Vit A/Vit C/Vit E/Zinc/Copper (Preservision Areds Tablet) 7,160-113 TABLET 1 TAB PO BID SUPPLEMENT (Reported) (Kathryn LANGE,[place]) Past History Travel History Traveled to [place] past 21 day No Medical History Any Pertinent Medical History? 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 No (Rhina Arce) Review of Systems Review of Systems Constitutional: Reports: no symptoms. EENTM: Reports: no symptoms. Respiratory: Reports: no symptoms. Cardiovascular: Reports: no symptoms. GI: Reports: no symptoms. Genitourinary: Reports: no symptoms. Musculoskeletal: Reports: see HPI. Skin: Reports: see HPI. Neurological/Psychological: Reports: no symptoms. Hematologic/Endocrine: Reports: see HPI. Immunologic/Allergic: Reports: no symptoms. All Other Systems: Reviewed and Negative (Rhina Arce) Physical Exam Physical Exam General Appearance: well developed/nourished, no apparent distress, alert, awake Head: atraumatic, normal appearance Eyes: Bilateral: normal appearance. Ears, Nose, Throat: hearing grossly normal Neck: normal inspection, supple, full range of motion Respiratory: normal breath sounds, no respiratory distress, lungs clear Cardiovascular: regular rate/rhythm Peripheral Pulses: 2+ radial (R), 2+ radial (L) Gastrointestinal: normal bowel sounds, soft, non-tender, no organomegaly Back: normal inspection Extremities: 3+ pitting edema bilateral lower legs, cool extremities, erythema with peeling of skin, +tenderness Neurologic/Psych: awake, alert, oriented x 3 Skin: see lower extremities erythema as described above Core Measures ACS in differential dx? Yes CVA/TIA Diagnosis: No Sepsis Present: No Sepsis Focused Exam Completed? No (Mariela JEAN-BAPTISTE,Rhina Rodriguez) Progress Differential Diagnoses I considered the following diagnoses in my evaluation of the patient: [ Cellulitis, UTI, sepsis, ACS, CHF, venous stasis] Plan of Care: Orders Procedure Date/time Status CBC WITHOUT DIFFERENTIAL 09/13 0600 Active BASIC ELECTROLYTES PLUS BUN&CR 09/13 0600 Active Heart Healthy Diet 09/12 B Active PARTIAL THROMBOPLASTIN TIME 09/12 1230 Complete Heparin Drip- AFIB/FLUTTER/PE/ 09/12 0651 Active Weight 09/12 0627 Active TROPONIN LEVEL 09/12 0600 Active CBC WITHOUT DIFFERENTIAL 09/12 0600 Complete BASIC ELECTROLYTES PLUS BUN&CR 09/12 0600 Active EKG 09/12 0600 Active LACTIC ACID 09/12 0300 Complete MAGNESIUM 09/12 0215 Complete TROPONIN LEVEL 09/12 0209 Complete US-EXT BILAT VENOUS DOPPLER 09/12 UNK Active Lab Add-on Test 09/12 UNK Active LUNG SCAN (V/Q) 09/12 UNK Active EKG 09/12 UNK Active TROPONIN LEVEL 09/11 2355 Complete EKG 09/11 2355 Active LACTIC ACID 09/11 2300 Complete Teach/Educate 09/11 2039 Active Pain Treatment and Response 09/11 2038 Active Nutritional Intake, Monitor 09/11 2038 Active Isolation 09/11 2038 Active Patient Care Conference 09/11 2038 Active Activity/Ambulation 09/11 2038 Active Pathway - chart 09/11 2015 Active House Staff 09/11 2015 Active Code Status 09/11 2016 Active LACTIC ACID 09/11 1912 Complete TROPONIN LEVEL 09/11 1724 Complete EKG 09/11 1724 Active Patient Data 09/11 1628 Active Code Status 09/11 1618 Complete ED Holding Orders 09/11 1613 Active Admit to inpatient 09/11 1613 Active Vital Signs 09/11 1613 Active RAPID VIRAL INFLUENZA A 09/11 1436 Complete Add-on Test (ER Only) 09/11 1348 Active Add-on Test (ER Only) 09/11 1305 Active Add-on Test (ER Only) 09/11 1304 Active Intake & Output 09/11 1220 Active PARTIAL THROMBOPLASTIN TIME 09/11 1220 Complete PROTHROMBIN TIME 09/11 1220 Complete B-TYPE NATRIURETIC PEP (BNP) 09/11 1220 Complete Current Medications Sig/Michael Start time Last Medication Dose Stop Time Status Admin Ceftriaxone Sodium 1,000 MG DAILY@1530 09/12 1530 AC (Rocephin) Omeprazole 20 MG DAILY 09/12 1000 AC 09/12 (Prilosec) 0919 Heparin Sodium/ 25,000 UNIT Q24H 09/12 0500 AC 09/12 Dextrose 0630 (Heparin) Dextrose/Water 500 ML (D5W) Metoprolol Tartrate 12.5 MG ONCE ONE 09/12 0315 CAN (Lopressor) 09/12 031 Heparin Sodium 5,000 UNIT Q8 09/11 2199 AC 09/11 (Porcine) 2223 Potassium Chloride 20 MEQ BID 09/11 2199 AC 09/12 (K-Dur) 0919 Prednisone 5 MG TID 09/11 2199 AC 09/12 0919 Acetaminophen 325 MG Q6P PRN 09/11 2029 AC (Tylenol) Oxycodone HCl 5 MG Q6 PRN 09/11 2029 AC (Roxicodone) Tramadol HCl 50 MG Q6 PRN 09/11 2030 AC (Ultram) Spironolactone 25 MG DAILY 09/11 2008 AC 09/12 (Aldactone) 0920 Laboratory Tests 09/12/17 1030: Anion Gap 13, Estimated GFR 42 L, BUN/Creatinine Ratio 26.7 H, Troponin I Pending, APTT 63 H, CBC w Diff NO MAN DIFF REQ, RBC 4.55, MCV 90.2, MCH 29.3, MCHC 32.5 L, RDW 16.4 H, MPV 7.9, Gran % 84.8 H, Lymphocytes % 10.0 L, Monocytes % 5.0, Eosinophils % 0.1, Basophils % 0.1, Absolute Granulocytes 8.7 H, Absolute Lymphocytes 1.0 L, Absolute Monocytes 0.5, Absolute Eosinophils 0, Absolute Basophils 0 09/12/17 0215: Magnesium 1.7, Troponin I 0.17 *H 09/12/17 0215: Lactic Acid 1.9 09/11/17 2340: Troponin I 0.16 *H 09/11/17 2340: Lactic Acid 2.2 H 09/11/17 2004: Lactic Acid 2.9 H 09/11/17 1811: Troponin I 0.12 *H 09/11/17 1440: Lactic Acid 2.3 H Microbiology 09/12 1030 NASOPHARYN: Influenza Virus A & B Rapid Smear - COMP 09/11 1440 BLOOD: Blood Culture - RES Spoke with Dr. Green - patient has aquired factor VIII antibodies, initially patient had Factor VIII level of 0. patient started on prednisone and Factor 8 improved to normal levels. Recommends PTT, if normal taper dose of prednisone. Patient currently on 30mg daily by 5mg every three days. Spoke with Dr. Lawson regarding this patient's elevated troponin. Patient has stable EKG compared to prior study. Will obtain serial EKGs and troponin when patient is admitted to telemetry unit. Patient with lactic acid increasing. She was started on IV Rocephin for cellulitis versus urine infection. I discussed this patient with Dr. Oswald regarding her telemetry admission. He agrees with this plan. The patient was discussed with Dr. Peralta. Diagnostic Imaging: Viewed by Me: Radiology Read. Discussed w/RAD: Radiology Read. CXR Impression: PATIENT: BRIANDA DUFFY PRESENT AGE: 86 PATIENT ACCOUNT NO: [id number] : 29 LOCATION: [facility] ORDERING PHYSICIAN: Rhina JEAN-BAPTISTE SERVICE DATE: 09/11/17 EXAM TYPE: RAD - XRY-CHEST XRAY, TWO VIEWS EXAMINATION: XR CHEST CLINICAL INFORMATION: Pedal edema. COMPARISON: Portable chest 05/30/2017. TECHNIQUE: 2 views of the chest were obtained. FINDINGS: Both lungs are well expanded and clear of acute process. Heart size is enlarged. Pulmonary vascularity is normal. There is severe T8 compression fracture with acute kyphosis at this level. IMPRESSION: No acute pulmonary process. Severe T8 compression fracture resulting in acute kyphosis at this level. Similar findings probably were present on the previous chest AP exam 05/30/2017. If patient has acute pain in this region an MRI or bone scan can be performed. DICTATED BY: Gui Mcclellan MD DATE/TIME DICTATED:09/27 COORDINATOR VOLUNTEER SERVICES:SHYANNE DATE/TIME TRANSCRIBED:09/11/171430 CONFIDENTIAL, DO NOT COPY WITHOUT APPROPRIATE AUTHORIZATION. <Electronically signed in Other Vendor System> SIGNED BY: Gui Mcclellan MD 09/11/17 1717 Initial ED EKG: sinus rhythm @82bpm, supraventricular bigeminy, RBBB, LAFB Prior EKG: unchanged (06/08/17) (Rhina Arce) Departure Departure Disposition: STILL A PATIENT Condition: Stable Referrals: Velasquez Oswald MD (PCP/Family) Departure Forms: Customer Survey General Discharge Information Admission Note Spoke With: Velasquez Oswald MD Documentation of Exam: Documentation of any treatments & extenuating circumstances including Concerns Regarding Discharge (functional status, medication knowledge or non-compliance, living conditions, etc.) that warrant an admission rather than observation: [ Cellulitis and UTI requiring IV antibiotics, possible ID consult, elevated troponin requiring cardiology consult, telemetry monitoring, repeat troponins and EKGs, weakness and gait instability requiring physical therapy consult, premature discharge would be medically unsafe.] (Rhina Arce) Departure Clinical Impression Primary Impression: Cellulitis Secondary Impressions: Gait instability, UTI (urinary tract infection), Weakness PA/OTOLARYNGOLOGY SURGEON Co-Sign Statement Statement: ED Attending supervision documentation- [X] I saw and evaluated the patient. I have also reviewed all the pertinent lab results and diagnostic results. I agree with the findings and the plan of care as documented in the PA's/OTOLARYNGOLOGY SURGEON's documentation. [X] I have reviewed the ED Record and agree with the PA's/OTOLARYNGOLOGY SURGEON's documentation. [] Additions or exceptions (if any) to the PAs/OTOLARYNGOLOGY SURGEON's note and plan are summarized below: [] (Kathryn LANGE,[place]) Critical Care Note Critical Care Note Critical Care Time: 30-74 min (Rhina Arce)
[2017-09-11 12:40] LABS: ABSOLUTE BASOPHIL COUNT 0 /CUMM (0.0-0.2); ABSOLUTE EOSINOPHIL COUNT 0.1 /CUMM (0.0-0.7); ABSOLUTE GRANULOCYTE CT 11.1 /CUMM (1.4-6.5); ABSOLUTE LYMPH COUNT 1.5 /CUMM (1.2-3.4); ABSOLUTE MONOCYTE COUNT 0.5 /CUMM (0.10-0.60); BASOPHIL % 0.1 % (0.0-2.0); EOSINOPHIL % 0.4 % (0-5); HEMATOCRIT 41.3 % (37-47); MEAN CORPUSCULAR HGB 29.3 PG (27.0-31.0); MEAN CORPUSCULAR VOLUME 88.6 FL (81.0-99.0); PLATELET COUNT 455 /CUMM (130-400); RBC DISTRIBUTION WIDTH 15.9 % (11.5-14.5); RED BLOOD CELL CT 4.66 /CUMM (4.20-5.40); WHITE BLOOD CELL COUNT 13.2 /CUMM (4.8-10.8)
[2017-09-11 12:59] LABS: GRANULOCYTE % 84.4 % (42.2-75.2)
[2017-09-11 13:24] LABS: PTT 29 SEC (25-37)
--- NOTE | 2017-09-11 16:56 | History & Physical ---
Liliane Martinez MD,[facility] 09/11/17 3211: General Information and HPI MD Statement: I have seen and personally examined BRIANDA DUFFY and documented this H&P. The patient is a 86 year old F who presented with a patient stated chief complaint of leg weakness. Source of Information: patient, family Exam Limitations: no limitations History of Present Illness: Patient is 86-year-old F with PMH of hypertension, chronic venous insufficiency, bypass surgery of lower extremity, recurrent cellulitis, CKD, dermatitis, ? Acquired factor VIII deficiensy, was BIBA to ED with chief complaint of bilateral leg pain and severe weakness. Patient was alert and oriented and most of history was taken from her, her daughter was interviewed to review the history. Patient reported to have increased swelling of bilateral legs for the last week, while in the last 2-3 days legs became extremely swollen and red. This morning she was walking to get Coffee when she became extremely tired and felt weak and gradually fell on the floor. She called her daughter and was transferred to hospital. She also reported increased bilateral pain in legs with touch, occasionally 10 over 10, foot to toe. She denied any chest pain, SOB, and no fever or chills (despite previous admissions due to cellulitis0. 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 Edema was happening usually after standing for long hours, however they occasionally happened in the mornings as well. She started to get wrapping of the legs for the last 3 years which was relatively helping. However her condition was complicated 2 times requiring hospitalization at [facility] (first time cellulitis /sepsis in October 2016, second time cellulitis in May 2017). After discharge in May patient was placed in half-way for rehabilitation. She was noticed to have several hemorrhagic alamo in back and arms without depressed rating trauma and was referred to Dr. Padilla for further evaluation. She was diagnosed to have acquired factor VIII antibodies and was restarted on prednisone (initially 20 mg 3 times a day). She reported significant/dramatic improvement in her legs condition after starting prednisone. According to family she was followed with PTT and upon normalization tapering prednisone was initiated with currently being 5mg Prednisone TID. Patient denied any smoking or alcohol intake. His at [place] alone in a nursing/ assisted living facility and ambulates with walker. Allergies/Medications Allergies: Coded Allergies: duloxetine (From [facility]) (SEVERE SCHREIBER, DIZZINESS 05/29/17) pregabalin (From LYRICA) (WEAK/DIZZY 11/04/16) Home Med list Acyclovir 400 MG TABLET 1 TAB PO BID ANTIVIRAL (Reported) Ammonium Lactate 12 % CREAM..G. 1 ARLIN TOP AD SKIN (Reported) Furosemide 40 MG TABLET 1 TAB PO DAILY WATER PILL (Reported) Multivitamin (Daily Multiple Vitamin) 1 EACH TABLET 1 TAB PO DAILY SUPPLEMENT (Reported) Omeprazole 20 MG CAPSULE.DR 1 CAP PO DAILY GI (Reported) Potassium Chloride 20 MEQ TAB.ER.PRT 1 TAB PO BID SUPPLEMENT (Reported) Prednisone 5 MG TABLET 1 TAB PO TID FACTOR VIII (Reported) Spironolactone 25 MG TABLET 1 TAB PO DAILY DIURETIC (Reported) Tramadol HCl 50 MG TABLET 1 TAB PO Q6H PRN PAIN (Reported) Vit A/Vit C/Vit E/Zinc/Copper (Preservision Areds Tablet) 7,160-113 TABLET 1 TAB PO BID SUPPLEMENT (Reported) Past History Travel History Traveled to [place] past 21 day No Medical History Neurological: NONE EENT: glaucoma, macular degeneration Cardiovascular: chronic venous insuff, hypertension Respiratory: NONE Gastrointestinal: NONE Hepatic: NONE Renal: NONE Musculoskeletal: NONE Psychiatric: NONE Endocrine: NONE Blood Disorders: NONE Cancer(s): NONE CLASSIFIER/Reproductive: NONE History of MRSA: No History of VRE: No History of CDIFF: No Surgical History Surgical History: LEG BYPASS X4 Past Family/Social History Psychosocial History Services at Home: None ETOH Use: denies use Illicit Drug Use: denies illicit drug use Review of Systems Review of Systems Constitutional: Reports: see HPI. Exam & Diagnostic Data Last 24 Hrs of Vital Signs/I&O Vital Signs Date Time Temp Pulse Resp B/P B/P Pulse O2 O2 Flow FiO2 Mean Ox Delivery Rate 09/11 1919 98.2 106 17 170/77 97 Room Air 09/11 1728 98.2 101 18 180/100 96 Room Air 09/11 1505 97.5 18 172/82 97 09/11 1124 95 Room Air 09/11 1115 97.6 107 18 156/81 94 Intake & Output 09/11 1600 09/11 0800 09/11 0000 Intake Total 500 Output Total Balance 500 Intake, IV 500 Patient 150 lb Weight Physical Exam General Appearance Alert, Oriented X3, Cooperative, No Acute Distress Skin bilateral LE redness and swelling, pulses not felt Skin Temp/Moisture Exam: Warm/Dry Sepsis Skin Exam (color): Normal for Ethnicity HEENT Atraumatic, EOMI, Mucous Membr. moist/pink Cardiovascular Regular Rate, Normal S1, Normal S2 Lungs decreased breathing sounds bilaterally, no crackles were appreciated Abdomen Normal Bowel Sounds, Soft, No Tenderness Neurological Normal Speech Extremities bilateral +3leg swelling and redness, pulses couldn't be discharged Last 24 Hrs of Labs/Luis: Laboratory Tests 09/11/172003: Lactic Acid 2.9 H 09/11/17 1811: Troponin I 0.12 *H 09/11/17 1440: Lactic Acid 2.3 H 09/11/17 1220: Anion Gap 13, Estimated GFR 42 L, BUN/Creatinine Ratio 30.8 H, Glucose 157 H, Lactic Acid 2.1, Calcium 9.6, Total Bilirubin 0.4, AST 26, ALT 48, Alkaline Phosphatase 91, Troponin I 0.13 *H, Agd-F-Zdyoglxnrpz Pept 2970 H, Total Protein 6.4, Albumin 3.7, Globulin 2.7, Albumin/Globulin Ratio 1.4, PT 10.0, INR 0.95, APTT 29, CBC w Diff NO MAN DIFF REQ, RBC 4.66, MCV 88.6, MCH 29.3, MCHC 33.0, RDW 15.9 H, MPV 7.0 L, Gran % 84.4 H, Lymphocytes % 11.5 L, Monocytes % 3.6, Eosinophils % 0.4, Basophils % 0.1, Absolute Granulocytes 11.1 H, Absolute Lymphocytes 1.5, Absolute Monocytes 0.5, Absolute Eosinophils 0.1, Absolute Basophils 0 09/11/17 1213: Urinalysis LIGHT H, Urine Color YEL, Urine Clarity HAZY H, Urine pH 6.5, Ur Specific [place] 1.025, Urine Protein 100 H, Urine Ketones NEG, Urine Nitrite NEG, Urine Bilirubin NEG, Urine Urobilinogen 0.2, Ur Leukocyte Esterase MOD H, Ur Microscopic SEDIMENT EXAMINED, Urine RBC 5-10 H, Urine WBC 50-75 H, Ur Epithelial Cells MOD H, Urine Bacteria FEW H, Hyaline Casts 1-3 H, Granular Casts RARE H, Urine Mucus RARE, Urine Hemoglobin TRACE-INTACT, Urine Glucose 100 H Microbiology 09/11 1440 BLOOD: Blood Culture - RECD 09/11 1436 NASOPHARYN: Influenza Virus A & B Rapid Smear - ORD 09/11 1220 BLOOD: Blood Culture - RECD 09/11 1213 URINE ROUT: Urine Culture - RECD Assessment/Plan Assessment: Patient is 86-year-old F prented with bilateral leg pain and severe weakness PMH: hypertension, chronic venous insufficiency, bypass surgery of lower extremity, recurrent cellulitis, CKD, dermatitis, ? Acquired factor VIII deficiensy. VS, Ph Ex at admission: BP 156/81, no fever, UT 107, RR 18, saturating well in room air Labs at admission: WBC 13.2, PLT 455, CR 1.2, BUN 37, BUN/creatinine 30.8, LA 2.3 Tn 0.13, PRO BNP 2970 U/A: 50-75 WBC, LE positive Imagings at admission: No acute pulmonary process. Severe T8 compression fracture resulting in acute kyphosis at this level. Similar findings probably were present on the previous chest AP exam 05/30/2017. If patient has acute pain in this region an MRI or bone scan can be performed. Patient was admitted to telemetry floor for management of following conditions: Bilateral acute leg swelling and pain R/o cellulitis/DVT Patient has history of bilateral cellulitis, although doesn't report any fever or chills but is on prednisone which could mask inflammatory symptoms. In the same time although rare we will get ultrasound Doppler to rule out DVTs, since patient's creatinine is high wont get d dimer. Arterial thrombosis is lower in our differential diagnosis. - admit to tele floor - doppler US of the leg - IV lasix 60 mg daily - follow vasc consult - continue pred 5mgTID Increased TN: most likely type 2 [place] - Serial Tn and EKG Drew lactic acid: normal AG, we will monitor - monitor LA Active UA: patient did not reported any symptoms. We will obtain urine culture - IV ceftriaxone administered - Consider to hold off antibiotics - follow urine culture Leukocytosis Was likely from infection, UTI, can also be related to prednisone DNR/DNI DVT ppx: Pharmacological, no ALPS diet heart healthy As Ranked By This Provider Problem List: 1. UTI (urinary tract infection) Core Measures/Misc (04/26) Acute Coronary Syndrome ACS Diagnosis: No Congestive Heart Failure Congestive Heart Failure Diagnosis No Cerebrovascular Accident CVA/TIA Diagnosis: No VTE (View Protocol) VTE Risk Factors Age>40 No Mechanical VTE Prophylaxis d/t N/A MechProphylax Ordered No VTE Pharm Prophylaxis d/t Medical Contraindication Sepsis (View protocol) Sepsis Present: No Vick LANGE,Jos 09/11/17 6732: Resident Review Statement Resident Statement: examined this patient, discussed with international guest coordinator, agreed with international guest coordinator Other Findings: 86-year-old very pleasant lady with a history of similarly swelling and venous insufficiency, presents with complaints of increased bilateral lower extremity swelling and severe pain. Impression * Bilateral acute on chronic worsening of lower extremity swelling. Differential includes worsening of chronic venous insufficieny. Bilateral erythema and swelling with edema that appeared to be cellulitis. Need to rule out VTE with a bilateral venous Doppler. Celulitis possible, but not very convincing during physical examination as patient has chronic edematous bilateral swelling form her venous insufficiency hx. * Hyperlactetemia. Not likely to be lactic acidosis given normal bicarbonate and a lactic less than 4. Physical examination most likely suggestive of hypervolemia that then intravascular depletion. Elevated blood pressure is also goes against intravascular depletion. Patient currently does not require any extra IV hydration. * Elevated troponin. Most likely secondary to supply demand mismatch in the setting of infection and no chest pain or any other a serious symptom. * Possible UTI. UA is suggestive of a possible infection, however she does not endorse any symptoms of dysuria. * Leukocytosis. Infectious versus stress demargination from prednisone use. Plan Admit to telemetry for close monitoring trend troponin to completely rule out ACS Ceftriaxone for possible UTI for now, may consider stopping anabiotic tomorrow morning if patient defervesces clinically IV Lasix 60 mg today, reassess tomorrow dose based on clinical status Will continue to trend lactic Will obtain us Doppler for bilateral lower extremities Will obtain vascular consult tomorrow morning to assess for any arterial involvement Continue prednisone as prescribed for hematological reason of factor VIII CODE STATUS: DNR/DNI DVT prophylaxis: This by a heparin, in the setting of marked edema and pain we' ll defer any Alps.
--- NOTE | 2017-09-11 17:17 | RADIOLOGY REPORT ---
EXAMINATION: XR CHEST CLINICAL INFORMATION: Pedal edema. COMPARISON: Portable chest 05/30/2017. TECHNIQUE: 2 views of the chest were obtained. FINDINGS: Both lungs are well expanded and clear of acute process. Heart size is enlarged. Pulmonary vascularity is normal. There is severe T8 compression fracture with acute kyphosis at this level. IMPRESSION: No acute pulmonary process. Severe T8 compression fracture resulting in acute kyphosis at this level. Similar findings probably were present on the previous chest AP exam 05/30/2017. If patient has acute pain in this region an MRI or bone scan can be performed.
[2017-09-11] MEDS ORDERED: SPIRONOLACTONE25 M1 PO (17:27)
[2017-09-11] MEDS ORDERED: AMMONIUM LACTA385 GM TOP (17:28)
[2017-09-11] MEDS ORDERED: PREDNISONE5 M1 PO (17:28)
[2017-09-11] MEDS ORDERED: OMEPRAZOLE20 M2 PO (17:29)
[2017-09-11] MEDS ORDERED: ACYCLOVIR400 M1 PO (17:29)
[2017-09-11] MEDS ORDERED: POTASSIUM CHLO20 ME2 PO (17:33)
--- NOTE | 2017-09-11 18:43 | Admission Certification ---
Admission Certification Certification Statement - As attending physician, I certify that at the time of - admission, based on clinical presentation, severity of - symptoms, need for further diagnostic testing and - therapeutic interventions, and risk of adverse outcomes - without in-hospital treatment, in my clinical assessment, - this patient requires an acute hospital stay for a minimum - of two nights or longer. I have also considered psychsocial - factors such as support system, advanced age, financial - issues, cognitive issues, and failed out-patient treatments, - past re-admission history, safety of patient, and lack of - compliance as applicable. Specific rationale supporting this admission is: Worsening cellulitis of both legs in severe pain, posssible demand ischemia, and UTI elevated lactic acid rule out sepsis
--- NOTE | 2017-09-11 18:50 | PN- Att Addend ---
Attending Addendum Attending Brief Note 86 year old female has had swelling and leg pains, last few days more swelling redness and severe pain comes to the ER slightly tachycardic afebreile white count of 13.200, elevated lactic acid slight elevation of troponin and a dirty urine .ALL cultures obtained start antibiotic theraphy cardiology imput. monitor labs and kidney function. Laboratory Tests 09/11/17 1811: Troponin I Pending 09/11/17 1440: Lactic Acid 2.3 H 09/11/17 1220: Anion Gap 13, Estimated GFR 42 L, BUN/Creatinine Ratio 30.8 H, Glucose 157 H, Lactic Acid 2.1, Calcium 9.6, Total Bilirubin 0.4, AST 26, ALT 48, Alkaline Phosphatase 91, Troponin I 0.13 *H, Kcv-L-Ysohxvknltv Pept 2970 H, Total Protein 6.4, Albumin 3.7, Globulin 2.7, Albumin/Globulin Ratio 1.4, PT 10.0, INR 0.95, APTT 29, CBC w Diff NO MAN DIFF REQ, RBC 4.66, MCV 88.6, MCH 29.3, MCHC 33.0, RDW 15.9 H, MPV 7.0 L, Gran % 84.4 H, Lymphocytes % 11.5 L, Monocytes % 3.6, Eosinophils % 0.4, Basophils % 0.1, Absolute Granulocytes 11.1 H, Absolute Lymphocytes 1.5, Absolute Monocytes 0.5, Absolute Eosinophils 0.1, Absolute Basophils 0 09/11/17 1213: Urinalysis LIGHT H, Urine Color YEL, Urine Clarity HAZY H, Urine pH 6.5, Ur Specific [place] 1.025, Urine Protein 100 H, Urine Ketones NEG, Urine Nitrite NEG, Urine Bilirubin NEG, Urine Urobilinogen 0.2, Ur Leukocyte Esterase MOD H, Ur Microscopic SEDIMENT EXAMINED, Urine RBC 5-10 H, Urine WBC 50-75 H, Ur Epithelial Cells MOD H, Urine Bacteria FEW H, Hyaline Casts 1-3 H, Granular Casts RARE H, Urine Mucus RARE, Urine Hemoglobin TRACE-INTACT, Urine Glucose 100 H CXR: no acute process. Case discussed with resident.
[2017-09-11 22:00] VITALS: BP 156/54
--- NOTE | 2017-09-12 04:51 | Event Note ---
Event Note Event Note: S: Alerted by nurse the patient was tachycardic to the 150s B: Patient was admitted with chronic bilateral lower extremity swelling, with worsening erythema and pain. Of note she also has elevated troponins and possible UTI. Doppler ultrasounds of her lower extremities have not been done. AR: Patient was seen in assisted bedside. She was sleeping comfortably initially and her heart rate at that time was in the 110s. She denied any chest pain or shortness of breath but continues to complain of lower extremity pain. She is not in respiratory distress. On exam she has no focal neurological deficits, she was tachycardic HR 120 with a regular rhythm. Mildly diminished breath sounds with wheezing, rhales, or crackles. Her legs were eryhtematous, warm, with 3+ pitting edema and TTP. will start IV heparin for suspicious of PE, given NADER did not order stat CTA, will consider VQ scan for the AM if she does not improve. This plan was discussed with Dr. Renny collazo.
[2017-09-12 07:26] VITALS: BP 126/58
--- NOTE | 2017-09-12 08:10 | PN- Housestaff ---
Subjective Follow-up For: Positive troponin Possible cellulitis Complaints: no complaints Tele-Events Since Last Visit: NSR with PVCs Subjective: seen and examined at bedside today. No overnight events. No complaints. He denies chest pain, chest pressure, nausea, vomiting. Review of Systems Constitutional: Reports: no symptoms. Cardiovascular: Reports: no symptoms. Respiratory: Reports: no symptoms. Gastrointestinal: Reports: no symptoms. Genitourinary: Reports: no symptoms. Musculoskeletal: Reports: no symptoms. Objective Last 24 Hrs of Vital Signs/I&O Vital Signs Date Time Temp Pulse Resp B/P B/P Pulse O2 O2 Flow FiO2 Mean Ox Delivery Rate 09/14 1436 98.8 67 18 122/58 97 09/14 0908 70 124/60 09/14 0906 70 124/60 09/14 0800 Room Air 09/14 0629 98.3 64 12 150/80 95 Room Air 09/13 2159 98.1 78 29 116/60 96 09/13 2119 79 116/60 09/13 1456 99.0 76 20 138/84 99 Room Air Intake & Output 09/14 1600 09/14 0800 02/ 0000 Intake Total 701.85 335 335 Output Total 450 500 450 Balance 251.85 -165 -115 Intake, IV 101.85 135 135 Intake, Oral 600 200 200 Output, Urine 450 500 450 Patient 169 lb Weight Weight Bed scale Measurement Method Physical Exam General Appearance: Alert, Oriented X3, Cooperative, No Acute Distress Skin: No Breakdown Cardiovascular: Regular Rate, Normal S1, Normal S2 Lungs: Normal Air Movement Abdomen: Soft, No Tenderness, No Hepatospenomegaly Neurological: Normal Speech, Strength at 5/5 X4 Ext, Normal Tone, Sensation Intact Extremities: IN WRAPS Current Medications: Current Medications Sig/Michael Start time Last Medication Dose Route Stop Time Status Admin Acetaminophen 325 MG Q6P PRN 09/11 2030 AC PO Aspirin 81 MG DAILY 09/12 1823 AC 09/14 PO 0908 Atorvastatin Calcium 40 MG 1700 / 1700 AC / PO 1724 Ceftriaxone Sodium 1,000 MG DAILY@1530 02/03 1530 AC 09/13 IV 1723 Heparin Sodium/ 25,000 UNIT Q24H / 0500 DC 09/14 Dextrose IV 0910 Dextrose/Water 500 ML Metoprolol Tartrate 12.5 MG BID 022199 AC 09/14 PO 0908 Omeprazole 20 MG DAILY 09/12 1000 AC 09/14 PO 0908 Oxycodone HCl 5 MG Q6 PRN 09/11 2029 AC 09/14 PO 1011 Potassium Chloride 20 MEQ BID 09/11 2199 AC 09/14 PO 0908 Prednisone 5 MG TID 09/11 2199 AC 09/14 PO 0908 Spironolactone 25 MG DAILY 09/11 2008 AC 09/14 PO 0908 Tramadol HCl 50 MG Q6 PRN 09/11 2029 AC 09/13 PO 2248 Assessment/Plan Assessment: Patient is 86-year-old F prented with bilateral leg pain and severe weakness PMH: hypertension, chronic venous insufficiency, bypass surgery of lower extremity, recurrent cellulitis, CKD, dermatitis, ? Acquired factor VIII deficiensy. Imagings at admission: No acute pulmonary process. Severe T8 compression fracture resulting in acute kyphosis at this level. Similar findings probably were present on the previous chest AP exam 05/30/2017. If patient has acute pain in this region an MRI or bone scan can be performed. Patient was admitted to telemetry floor for management of following conditions: Bilateral acute leg swelling and pain DVT ruled out - Continue IV Lasix 60 mg - contine abx therapy Increased troponin with tacyhcaardia most likely type 2 [place] - Serial Tn and EKG : trops trended down -on IV heparin, statin, metoprolol per cardilogy Drew lactic acid: normal AG, we will monitor -resolved Active UA: patient did not reported any symptoms. We will obtain urine culture - IV ceftriaxone administered - Consider to hold off antibiotics - follow urine culture Leukocytosis Was likely from infection, UTI, can also be related to prednisone, resolved and will continue to monitor for now DNR/DNI DVT ppx: Pharmacological, no ALPS diet heart healthy Problem List: 1. Lower extremity cellulitis Pain Ratin Pain Location: NONE Pain Goal: Remain pain free Pain Plan: TYLENOL Tomorrow's Labs & Rationales: CBC,BEP
--- NOTE | 2017-09-12 08:56 | PN- Att Addend ---
Attending Addendum Attending Brief Note Patient in bed resting comfortably at this time. Overnight was a little tachycardic, pulse is around 101-110 this morning a PE 126/58. Started on a heparin drip. Major changes on physical area to blood cultures are pending, urine culture showed no growth after 24 hours. Continue treatment of cellulitis and last troponin was 0.17 lactic acid 2.2. Will have cardiology evaluation today continue treatment for presumable cellulitis of the legs 24 TOTALS 09/12 0000 09/11 0000 Intake Total 500 Output Total 400 Balance 100 Intake, IV 500 Output, Urine 400 Patient 115 lb Weight Weight Reported by Patient Measurement Method Current Medications Sig/Michael Start time Last Medication Dose Route Stop Time Status Admin Acetaminophen 325 MG Q6P PRN 09/11 2030 AC PO Ceftriaxone Sodium 1,000 MG DAILY@1530 09/12 1530 AC IV Ceftriaxone Sodium 1,000 MG ONCE ONE 09/11 1530 DC 09/11 IV 09/11 1531 1537 Ceftriaxone Sodium 0 .STK-MED ONE 09/11 1527 DC .ROUTE Furosemide 40 MG ONCE ONE 09/11 2014 DC 09/11 IV 09/11 2016 2222 Heparin Sodium 5,000 UNIT Q8 09/11 2200 AC 09/11 (Porcine) SC 2223 Heparin Sodium/ 25,000 UNIT Q24H 09/12 0500 AC 09/12 Dextrose IV 0630 Dextrose/Water 500 ML Hydrochlorothiazide 50 MG ONCE ONE 09/11 1730 DC 09/11 PO 09/11 1731 1809 Metoprolol Tartrate 12.5 MG ONCE ONE 09/12 0315 CAN PO 09/12 0316 Morphine Sulfate 2 MG ONCE ONE 09/11 2345 DC 09/11 IV 09/11 2346 2350 Morphine Sulfate 0 .STK-MED ONE 09/11 1527 DC .ROUTE Morphine Sulfate 2 MG ONCE ONE 09/11 1515 DC 09/11 IV 09/11 1516 1536 Omeprazole 20 MG DAILY 09/12 1000 AC PO Oxycodone HCl 5 MG Q6 PRN 09/11 2030 AC PO Oxycodone/ 1 TAB ONCE ONE 09/11 1300 DC 09/11 Acetaminophen PO 09/11 1301 1301 Oxycodone/ 0 .STK-MED ONE 09/11 1254 DC Acetaminophen PO Potassium Chloride 20 MEQ BID 09/11 2199 AC 09/11 PO 2230 Prednisone 5 MG TID 09/11 2200 AC 09/11 PO 2223 Sodium Chloride 1,000 ML BOLUS ONE 09/11 1400 DC 09/11 IV 09/11 1559 1500 Spironolactone 25 MG DAILY 09/11 2008 AC 09/11 PO 2223 Tramadol HCl 50 MG Q6 PRN 09/11 2029 AC PO Tramadol HCl 0 .STK-MED ONE 09/11 1159 DC PO Tramadol HCl 50 MG ONCE ONE 09/11 1145 DC 09/11 PO 09/11 1146 1203 Laboratory Tests 09/12/17 0215: Magnesium 1.7, Troponin I 0.17 *H 09/12/17 0215: Lactic Acid 1.9 09/11/17 2340: Troponin I 0.16 *H 09/11/17 2340: Lactic Acid 2.2 H 09/11/17 2004: Lactic Acid 2.9 H 09/11/17 1811: Troponin I 0.12 *H 09/11/17 1440: Lactic Acid 2.3 H 09/11/17 1220: Anion Gap 13, Estimated GFR 42 L, BUN/Creatinine Ratio 30.8 H, Glucose 157 H, Lactic Acid 2.1, Calcium 9.6, Total Bilirubin 0.4, AST 26, ALT 48, Alkaline Phosphatase 91, Troponin I 0.13 *H, Ohy-R-Oriaqhkumtg Pept 2970 H, Total Protein 6.4, Albumin 3.7, Globulin 2.7, Albumin/Globulin Ratio 1.4, PT 10.0, INR 0.95, APTT 29, CBC w Diff NO MAN DIFF REQ, RBC 4.66, MCV 88.6, MCH 29.3, MCHC 33.0, RDW 15.9 H, MPV 7.0 L, Gran % 84.4 H, Lymphocytes % 11.5 L, Monocytes % 3.6, Eosinophils % 0.4, Basophils % 0.1, Absolute Granulocytes 11.1 H, Absolute Lymphocytes 1.5, Absolute Monocytes 0.5, Absolute Eosinophils 0.1, Absolute Basophils 0 09/11/17 1213: Urinalysis LIGHT H, Urine Color YEL, Urine Clarity HAZY H, Urine pH 6.5, Ur Specific [place] 1.025, Urine Protein 100 H, Urine Ketones NEG, Urine Nitrite NEG, Urine Bilirubin NEG, Urine Urobilinogen 0.2, Ur Leukocyte Esterase MOD H, Ur Microscopic SEDIMENT EXAMINED, Urine RBC 5-10 H, Urine WBC 50-75 H, Ur Epithelial Cells MOD H, Urine Bacteria FEW H, Hyaline Casts 1-3 H, Granular Casts RARE H, Urine Mucus RARE, Urine Hemoglobin TRACE-INTACT, Urine Glucose 100 H Microbiology Date/Time Procedure - Status Source Growth 09/12 0600 Influenza Virus A & B Rapid Smear - COLB NASOPHARYN 09/11 1440 Blood Culture - RECD BLOOD 09/11 1220 Blood Culture - RECD BLOOD 09/11 1213 Urine Culture - RES URINE ROUT
[2017-09-12 11:28] LABS: ABSOLUTE BASOPHIL COUNT 0 /CUMM (0.0-0.2); ABSOLUTE EOSINOPHIL COUNT 0 /CUMM (0.0-0.7); ABSOLUTE GRANULOCYTE CT 8.7 /CUMM (1.4-6.5); ABSOLUTE MONOCYTE COUNT 0.5 /CUMM (0.10-0.60); BASOPHIL % 0.1 % (0.0-2.0); EOSINOPHIL % 0.1 % (0-5); GRANULOCYTE % 84.8 % (42.2-75.2); HEMATOCRIT 41.1 % (37-47); MEAN CORPUSCULAR HGB 29.3 PG (27.0-31.0); MEAN CORPUSCULAR HGB CONC 32.5 G/DL (33.0-37.0); MEAN CORPUSCULAR VOLUME 90.2 FL (81.0-99.0); MEAN PLATELET VOLUME 7.9 FL (7.4-10.4); PLATELET COUNT 362 /CUMM (130-400); RBC DISTRIBUTION WIDTH 16.4 % (11.5-14.5); RED BLOOD CELL CT 4.55 /CUMM (4.20-5.40); WHITE BLOOD CELL COUNT 10.3 /CUMM (4.8-10.8)
[2017-09-12 11:37] LABS: PTT 63 SEC (25-37)
--- NOTE | 2017-09-12 12:47 | Cons- Vascular Surgery ---
General Information and HPI Consulting Request Date of Consult: 09/12/17 Requested By: Velasquez Oswald MD Reason for Consult: BLE cellulitis Source of Information: patient Exam Limitations: no limitations History of Present Illness: 86yo female well known to the vascular service. She has been seen for the past few years with chronic venous insufficiency with severe BLE edema treated with unna boots and compression. She has been admitted several times with BLE cellulitis. Her other medical history includes HTN, CKD, factor VIII deficiency and she has been medically managed with high dose prednisone. She states that recently her prednisone is being weaned. She isn't sure what her most recent dose has been. Her legs have been looking better than usual for several months since her last admission in June. Over the past two weeks she has notices an increase in her leg swelling. In addition to that they are becoming more red than usual - she has chronic discoloration so it is sometimes difficult to assess fully the difference. Yesterday she was ambulating in her house and she became extremely weak in the legs and lost her ability to stand. No lightheadedness and she did not lose consciousness. She was BIBA to the ED and admitted . Overnight she was noted to have an increased HR to 150. Due to her CKD a CTA was not performed but she was placed on a heparin drip for a presumed pe. Currently she is suffering from BLE pain which has improved since admission but she has been at bedrest with her legs elevated. Allergies/Medications Allergies: Coded Allergies: duloxetine (From CYMBALTA) (SEVERE SCHREIBER, DIZZINESS 05/29/17) pregabalin (From LYRICA) (WEAK/DIZZY 11/04/16) Home Med List: Acyclovir 400 MG TABLET 1 TAB PO BID ANTIVIRAL (Reported) Ammonium Lactate 12 % CREAM..G. 1 ARLIN TOP AD SKIN (Reported) Furosemide 40 MG TABLET 1 TAB PO DAILY WATER PILL (Reported) Multivitamin (Daily Multiple Vitamin) 1 EACH TABLET 1 TAB PO DAILY SUPPLEMENT (Reported) Omeprazole 20 MG CAPSULE.DR 1 CAP PO DAILY GI (Reported) Potassium Chloride 20 MEQ TAB.ER.PRT 1 TAB PO BID SUPPLEMENT (Reported) Prednisone 5 MG TABLET 1 TAB PO TID FACTOR VIII (Reported) Spironolactone 25 MG TABLET 1 TAB PO DAILY DIURETIC (Reported) Tramadol HCl 50 MG TABLET 1 TAB PO Q6H PRN PAIN (Reported) Vit A/Vit C/Vit E/Zinc/Copper (Preservision Areds Tablet) 7,160-113 TABLET 1 TAB PO BID SUPPLEMENT (Reported) Current Medications: Current Medications Sig/Michael Start time Last Medication Dose Route Stop Time Status Admin Acetaminophen 325 MG Q6P PRN 09/11 2030 AC PO Ceftriaxone Sodium 1,000 MG DAILY@1530 09/12 1530 AC IV Ceftriaxone Sodium 1,000 MG ONCE ONE 09/11 1530 DC 09/11 IV 09/11 1531 1537 Ceftriaxone Sodium 0 .STK-MED ONE 09/11 1527 DC .ROUTE Furosemide 40 MG ONCE ONE 09/11 2014 DC 09/11 IV 09/11 2015 222 Heparin Sodium 5,000 UNIT Q8 09/11 2200 AC 09/11 (Porcine) SC 2223 Heparin Sodium/ 25,000 UNIT Q24H 09/12 0500 AC 09/12 Dextrose IV 0630 Dextrose/Water 500 ML Hydrochlorothiazide 50 MG ONCE ONE 09/11 1730 DC 09/11 PO 09/11 1731 1809 Metoprolol Tartrate 12.5 MG ONCE ONE 09/12 0315 CAN PO 09/12 0316 Morphine Sulfate 2 MG ONCE ONE 09/11 2345 DC 09/11 IV 09/11 2346 2350 Morphine Sulfate 0 .STK-MED ONE 09/11 1527 DC .ROUTE Morphine Sulfate 2 MG ONCE ONE 09/11 1515 DC 09/11 IV 09/11 1516 1536 Omeprazole 20 MG DAILY 09/12 1000 AC 09/12 PO 0919 Oxycodone HCl 5 MG Q6 PRN 09/11 2030 AC PO Oxycodone/ 1 TAB ONCE ONE 09/11 1300 DC 09/11 Acetaminophen PO 09/11 1301 1301 Oxycodone/ 0 .STK-MED ONE 09/11 1254 DC Acetaminophen PO Potassium Chloride 20 MEQ BID 09/11 2199 AC 09/12 PO 0919 Prednisone 5 MG TID 09/11 220 AC 09/12 PO 0919 Sodium Chloride 1,000 ML BOLUS ONE 09/11 1400 DC 09/11 IV 09/11 1559 1500 Spironolactone 25 MG DAILY 09/11 2008 AC 09/12 PO 0920 Tramadol HCl 50 MG Q6 PRN 09/11 2030 AC PO Past History Medical History Blood Transfusion Hx: Yes Neurological: NONE EENT: glaucoma, macular degeneration Cardiovascular: chronic venous insuff, hypertension Respiratory: NONE Gastrointestinal: NONE Hepatic: NONE Renal: NONE Musculoskeletal: NONE Psychiatric: NONE Endocrine: NONE Blood Disorders: NONE Cancer(s): NONE 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 self Services at Home: None Smoking Status: Former Smoker ETOH Use: denies use Illicit Drug Use: denies illicit drug use Functional Ability Ambulation: walker Exam & Diagnostic Data Vital Signs and I&O Vital Signs Date Time Temp Pulse Resp B/P B/P Pulse O2 O2 Flow FiO2 Mean Ox Delivery Rate 09/12 07 98.2 102 18 126/58 94 Room Air 09/11 2345 94 Room Air 09/11 2326 Room Air 09/11 2200 98.8 102 18 156/54 94 09/11 1919 98.2 106 17 170/77 97 Room Air 09/11 1728 98.2 101 18 180/100 96 Room Air 09/11 1505 97.5 18 172/82 97 Intake & Output 09/12 1600 09/12 0800 09/12 0000 09/11 1600 09/11 0800 09/11 0000 Intake Total 500 Output Total 1150 400 Balance -1150 -400 500 Intake, IV 500 Output, Urine 1150 400 Patient 153 lb 115 lb 150 lb Weight Weight Reported by Patient Measurement Method Physical Exam: VSS, afebrile Ext: 3+pitting edema, dark erythema BLE from below the knee through the toes, tender to moderate palpation, FROM with good CECE, no palpable pulses due to swelling but good strong dopplerable DP bilaterally Assessment/Plan Assessment/Plan 86yo female with chronic venous insufficiency Pt seen by Dr House: This pleasant 86-year-old female has been followed by our practice for years for lower extremity venous insufficiency. She has previously undergone closure procedures, and compression dressings. She presented to the hospital with significant cellulitis of the bilateral lower extremities, and severe lower extremity swelling. Last evening, she had tachycardia concerning for questionable pulmonary embolism. Lower extremity venous study demonstrates no evidence of DVT. She is currently empirically anticoagulated with IV heparin. She is awaiting potential VQ scan to evaluate for pulmonary embolism. CTA is not indicated given her kidney dysfunction. Assessment plan: I agree with the current management. Empiric heparin until VQ scan results are available. Her legs should be further elevated, and bilateral Frank bandage gentle compression should be applied to help with her lower extremity swelling. Additionally, I agree with antibiotics given her apparent cellulitis. She should follow-up with our practice in [place] after discharge. Consult Acknowledgment - Thank you for your consult request.
--- NOTE | 2017-09-12 13:18 | ULTRASOUND REPORT ---
EXAMINATION: US TRIPLEX OF LOWER EXTREMITIES, BILATERAL CLINICAL INFORMATION: Bilateral lower extremity pain, tenderness, edema, swelling and skin changes. COMPARISON: Prior venous ultrasound examinations, most recently 05/30/2017. TECHNIQUE: Color-flow triplex imaging with spectral analysis and compression Doppler were performed on the lower extremities. FINDINGS: Respiratory variation, normal compression and augmented flow are noted throughout the lower extremities. The visualized common femoral vein, proximal greater saphenous vein, femoral vein, profunda femoral vein, popliteal vein and visualized mid calf venous segments show no evidence of deep venous thrombosis. There is no Soriano's cyst. IMPRESSION: Normal triplex scan without evidence of deep venous thrombosis involving the bilateral lower extremities.
--- NOTE | 2017-09-12 13:42 | Cons- Cardiology ---
General Information and HPI Consulting Request Date of Consult: 09/12/17 Requested By: Velasquez Oswald MD History of Present Illness: This patient is an 86 year old female with history of hypertension and peripheral vascular disease with venous insufficiency status post peripheral bypass. She has also had recurrent cellulitis. 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 This patient was brought to the ER for evaluation of bilateral lower extremity pain accompanies by swelling and erythema. The patient was weak and off-balance and sunk to the ground before being sent to the ER. the patient otherwise denies any chest pain, pressure or tightness and is without shortness of breath, lightheadedness or palpitations. Her troponin was elevated and she became tachycardic with a heart rate in the 150bpm range. The patient's echocardiogram shows a normal EF of 55% with trace MR and TR. Allergies/Medications Allergies: Coded Allergies: duloxetine (From CYMBALTA) (SEVERE SCHREIBER, DIZZINESS 05/29/17) pregabalin (From LYRICA) (WEAK/DIZZY 11/04/16) Home Med List: Acyclovir 400 MG TABLET 1 TAB PO BID ANTIVIRAL (Reported) Ammonium Lactate 12 % CREAM..G. 1 ARLIN TOP AD SKIN (Reported) Furosemide 40 MG TABLET 1 TAB PO DAILY WATER PILL (Reported) Multivitamin (Daily Multiple Vitamin) 1 EACH TABLET 1 TAB PO DAILY SUPPLEMENT (Reported) Omeprazole 20 MG CAPSULE.DR 1 CAP PO DAILY GI (Reported) Potassium Chloride 20 MEQ TAB.ER.PRT 1 TAB PO BID SUPPLEMENT (Reported) Prednisone 5 MG TABLET 1 TAB PO TID FACTOR VIII (Reported) Spironolactone 25 MG TABLET 1 TAB PO DAILY DIURETIC (Reported) Tramadol HCl 50 MG TABLET 1 TAB PO Q6H PRN PAIN (Reported) Vit A/Vit C/Vit E/Zinc/Copper (Preservision Areds Tablet) 7,160-113 TABLET 1 TAB PO BID SUPPLEMENT (Reported) Past History Travel History Traveled to [place] past 21 day No Medical History Blood Transfusion Hx: Yes Neurological: NONE EENT: glaucoma, macular degeneration Cardiovascular: chronic venous insuff, hypertension Respiratory: NONE Gastrointestinal: NONE Hepatic: NONE Renal: NONE Musculoskeletal: NONE Psychiatric: NONE Endocrine: NONE Blood Disorders: NONE Cancer(s): NONE 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 self Services at Home: None Smoking Status: Former Smoker ETOH Use: denies use Illicit Drug Use: denies illicit drug use Functional Ability Ambulation: walker Exam & Diagnostic Data Vital Signs and I&O Vital Signs Date Time Temp Pulse Resp B/P B/P Pulse O2 O2 Flow FiO2 Mean Ox Delivery Rate 09/12 07 98.2 102 18 126/58 94 Room Air 09/11 2345 94 Room Air 09/11 2326 Room Air 09/11 2200 98.8 102 18 156/54 94 09/11 1919 98.2 106 17 170/77 97 Room Air 09/11 1728 98.2 101 18 180/100 96 Room Air 09/11 1505 97.5 18 172/82 97 Intake & Output 09/12 1600 09/12 0800 09/12 0000 09/11 1600 09/11 0800 09/11 0000 Intake Total 500 Output Total 1150 400 Balance -1150 -400 500 Intake, IV 500 Output, Urine 1150 400 Patient 153 lb 115 lb 150 lb Weight Weight Reported by Patient Measurement Method Physical Exam: General: WD/WN female in NAD; awake and responsive with decreased memory HEENT: NC/AT, PERRL, EOMI Neck: no JVD, no carotic bruit Heart: tachycardic and irregular without murmur Lungs: clear bilaterally Abdomen: soft, NT, +ve bowel sounds Extremities: 3+ bilateral leg edema with venous stasis changes and severe erythema Assessment/Plan Assessment/Plan * This patient has a small rise in cardiac enzymes without chest discomfort. There is accompanying tachycardia. The fast heart rate may have caused demand ischemia in the setting of coronary artery disease but an acute PE causing tachycardia and a troponin rise needs to be excluded. Obtain a C-dimer and ABG and if abnormal pursue a CT angiogram to assess for a pulmonary embolism. * Regardless of whether the patient had an ACS or PE she should be anticoagulated with IV heparin and begin aspirin. Begin a statin and begin Metoprolol 12.5mg BID. * Follow cardiac enzymes until they peak. Check a TSH and free T4. * Obtain an echocardiogram. Consult Acknowledgment - Thank you for your consult request.
--- NOTE | 2017-09-12 14:14 | PN- Vascular Surgery ---
Surgical Brief Attending Note Brief Attending Note: This pleasant 86-year-old female has been followed by our practice for years for lower extremity venous insufficiency. She has previously undergone closure procedures, and compression dressings. She presented to the hospital with significant cellulitis of the bilateral lower extremities, and severe lower extremity swelling. Last evening, she had tachycardia concerning for questionable pulmonary embolism. Lower extremity venous study demonstrates no evidence of DVT. She is currently empirically anticoagulated with IV heparin. She is awaiting potential VQ scan to evaluate for pulmonary embolism. CTA is not indicated given her kidney dysfunction. Assessment plan: I agree with the current management. Empiric heparin until VQ scan results are available. Her legs should be further elevated, and bilateral Frank bandage gentle compression should be applied to help with her lower extremity swelling. Additionally, I agree with antibiotics given her apparent cellulitis. She should follow-up with our practice in [place] after discharge.
[2017-09-12 15:28] VITALS: BP 140/62
[2017-09-12 23:13] VITALS: BP 138/60
[2017-09-12 23:50] LABS: PTT > 120 SEC (25-37)
[2017-09-13 06:40] VITALS: BP 154/86
[2017-09-13 07:48] LABS: ABSOLUTE BASOPHIL COUNT 0 /CUMM (0.0-0.2); ABSOLUTE EOSINOPHIL COUNT 0 /CUMM (0.0-0.7); ABSOLUTE GRANULOCYTE CT 8.1 /CUMM (1.4-6.5); ABSOLUTE LYMPH COUNT 0.8 /CUMM (1.2-3.4); ABSOLUTE MONOCYTE COUNT 0.6 /CUMM (0.10-0.60); BASOPHIL % 0.1 % (0.0-2.0); EOSINOPHIL % 0.2 % (0-5); GRANULOCYTE % 85.1 % (42.2-75.2); MEAN CORPUSCULAR HGB 29.3 PG (27.0-31.0); MEAN CORPUSCULAR HGB CONC 32.9 G/DL (33.0-37.0); MEAN PLATELET VOLUME 7.7 FL (7.4-10.4); PLATELET COUNT 302 /CUMM (130-400); RBC DISTRIBUTION WIDTH 16.1 % (11.5-14.5); RED BLOOD CELL CT 3.82 /CUMM (4.20-5.40); WHITE BLOOD CELL COUNT 9.5 /CUMM (4.8-10.8)
--- NOTE | 2017-09-13 08:50 | PN- Housestaff ---
Subjective Follow-up For: + troponin Possible cellulitis Tachycardia in on elevated free T4 Tele-Events Since Last Visit: NSR with PVCs Subjective: S and examined the patient. Patient is feeling better today. both legs are in wraps. Review of Systems Constitutional: Reports: see HPI. Objective Last 24 Hrs of Vital Signs/I&O Vital Signs Date Time Temp Pulse Resp B/P B/P Pulse O2 O2 Flow FiO2 Mean Ox Delivery Rate 09/13 0818 78 154/86 09/13 0640 98.0 78 22 154/86 97 Room Air 09/12 2313 98.6 92 20 138/60 96 Room Air 09/12 2206 96 138/60 09/12 1528 98.7 120 18 140/62 95 Intake & Output 09/13 1600 09/13 0800 09/13 0000 Intake Total 240 600 Output Total 325 Balance 240 275 Intake, Oral 240 600 Output, Urine 325 Patient 75.75 kg Weight Weight Bed scale Measurement Method Physical Exam General Appearance: Alert, Oriented X3, Cooperative Cardiovascular: Regular Rate, Normal S1, Normal S2 Lungs: Clear to Auscultation, Normal Air Movement Abdomen: Normal Bowel Sounds, Soft Extremities: in wraps Assessment/Plan Assessment: Patient is 86-year-old F prented with bilateral leg pain and severe weakness PMH: hypertension, chronic venous insufficiency, bypass surgery of lower extremity, recurrent cellulitis, CKD, dermatitis, ? Acquired factor VIII deficiensy. VS, Ph Ex at admission: BP 156/81, no fever, IL 107, RR 18, saturating well in room air Labs at admission: WBC 13.2, PLT 455, CR 1.2, BUN 37, BUN/creatinine 30.8, LA 2.3 Tn 0.13, PRO BNP 2970 U/A: 50-75 WBC, LE positive Imagings at admission: No acute pulmonary process. Severe T8 compression fracture resulting in acute kyphosis at this level. Similar findings probably were present on the previous chest AP exam 05/30/2017. If patient has acute pain in this region an MRI or bone scan can be performed. Patient was admitted to telemetry floor for management of following conditions: Bilateral acute leg swelling and pain DVT ruled out Continue IV Lasix 60 mg contine abx therapy dvt ruled out Increased TN with tacyhcaardia most likely type 2 IN - Serial Tn and EKG : trops trended down -on IV heparin, statin, metoprolol per cardilogy - d dmier less than 200 -t4 3 we will repeat and endo consult tomorrow Drew lactic acid: normal AG, we will monitor -resolved Active UA: patient did not reported any symptoms. We will obtain urine culture - IV ceftriaxone administered - Consider to hold off antibiotics - follow urine culture Leukocytosis Was likely from infection, UTI, can also be related to prednisone, resolved for now DNR/DNI DVT ppx: Pharmacological, no ALPS diet heart healthy Problem List: 1. Elevated troponin 2. Cellulitis Pain Ratin Pain Location: na Pain Goal: Remain pain free Pain Plan: na Tomorrow's Labs & Rationales: cbc bep
--- NOTE | 2017-09-13 10:59 | PN- Cardiology ---
Subjective Subjective: * Legs feels improved. No chest discomfort or shortness of breath. * sinus rhythm with PVC's * Increased free T4 to 3.16 * creatinine is 1.1 * WBC count is now normal Objective Vital Signs and I&Os Vital Signs Date Time Temp Pulse Resp B/P B/P Pulse O2 O2 Flow FiO2 Mean Ox Delivery Rate 09/13 817 78 154/86 / 0640 98.0 78 22 154/86 97 Room Air 09/12 2313 98.6 92 20 138/60 96 Room Air 09/12 2206 96 138/60 09/12 1528 98.7 120 18 140/62 95 Intake & Output 09/13 1600 09/13 0800 09/13 0000 09/12 1600 09/12 0800 09/12 0000 Intake Total 240 600 400 Output Total 367 191 9569 400 Balance 240 275 -200 -1150 -400 Intake, Oral 240 600 400 Output, Urine 625 352 8143 400 Patient 167 lb 153 lb 115 lb Weight Weight Bed scale Reported by Patient Measurement Method Physical Exam: General: WD/WN female in NAD; awake and responsive with decreased memory HEENT: NC/AT, PERRL, EOMI Neck: no JVD, no carotic bruit Heart: RRR with ectopy without murmur Lungs: clear bilaterally Abdomen: soft, NT, +ve bowel sounds Extremities: 2+ bilateral leg edema with venous stasis changes and severe erythema Assessment/Plan Assessment/Plan * This patient has a small rise in cardiac enzymes without chest discomfort. There was accompanying tachycardia that may have been partially due to hyperthyroidism. Obtain an endocrinology consult. The fast heart rate may have caused demand ischemia in the setting of coronary artery disease. The patient has a normal D-dimer. * Continue anticoagulation with IV heparin and begin aspirin. Begin a statin and begin Metoprolol 12.5mg BID. * Obtain an echocardiogram. Continue telemetry? Yes
[2017-09-13 13:06] LABS: PTT 100 SEC (25-37)
--- NOTE | 2017-09-13 13:56 | PN- Att Addend ---
Attending Addendum Attending Brief Note Patient looking and feeling better this morning, the daughters at the bedside. Last evening she had an episode of increased heart rate no chest pain patient was evaluated by resident, was started on heparin, a d-dimer was not elevated area and patient was seen by cardiology the idea of the elevated troponins were probably due to increased heart rate with a baseline of coronary artery disease. Was suggested to continue present treatment start an aspirin and a statin patient was also seen by vascular the legs are wrapped now mild edema is down today the color is improved patient more comfortable with the new pain medication will continue treatment monitor her labs and get a physical therapy evaluation in the morning. Intake & Output 09/13 1600 09/13 0400 09/12 1600 09/12 0400 09/11 1600 09/11 0400 Intake Total 240 600 400 500 Output Total 325 1750 400 Balance 240 275 -1350 -400 500 Intake, IV 500 Intake, Oral 240 600 400 Output, Urine 325 1750 400 Patient 167 lb 153 lb 115 lb 150 lb Weight Weight Bed scale Reported by Patient Measurement Method Current Medications Sig/Michael Start time Last Medication Dose Route Stop Time Status Admin Acetaminophen 325 MG Q6P PRN 09/11 2030 AC PO Aspirin 81 MG DAILY 09/12 1823 AC 09/13 PO 0817 Atorvastatin Calcium 40 MG 1700 09/13 1700 AC PO Ceftriaxone Sodium 1,000 MG DAILY@1530 09/12 1530 AC 09/12 IV 1612 Heparin Sodium 5,000 UNIT Q8 09/11 2200 DC 09/11 (Porcine) SC 2223 Heparin Sodium/ 25,000 UNIT Q24H 09/12 0500 AC 09/13 Dextrose IV 0546 Dextrose/Water 500 ML Metoprolol Tartrate 12.5 MG BID 09/12 2199 AC 09/13 PO 0818 Omeprazole 20 MG DAILY 09/12 1000 AC 09/13 PO 0817 Oxycodone HCl 5 MG Q6 PRN 09/11 2030 AC 09/13 PO 0816 Potassium Chloride 20 MEQ BID 09/11 2199 AC 09/13 PO 0818 Prednisone 5 MG TID 09/11 2199 AC 09/13 PO 0817 Spironolactone 25 MG DAILY 09/11 2008 AC 09/13 PO 0817 Tramadol HCl 50 MG Q6 PRN 09/11 2030 AC PO Laboratory Tests 09/13/17 1135: APTT 100 H 09/13/17 0640: Anion Gap 10, Estimated GFR 47 L, BUN/Creatinine Ratio 28.2 H, Free T4 1.39, CBC w Diff NO MAN DIFF REQ, RBC 3.82 L, MCV 89.0, MCH 29.3, MCHC 32.9 L, RDW 16.1 H, MPV 7.7, Gran % 85.1 H, Lymphocytes % 8.6 L, Monocytes % 6.0, Eosinophils % 0.2, Basophils % 0.1, Absolute Granulocytes 8.1 H, Absolute Lymphocytes 0.8 L, Absolute Monocytes 0.6, Absolute Eosinophils 0, Absolute Basophils 0 09/12/170: D-Dimer High Sensitivty < 200 09/12/17 220: APTT > 120 *H 09/12/17 1945: pH 7.53 H, pCO2 30 L, pO2 89, HCO3 24, ABG O2 Sat (Measured) 96.0, Carboxyhemoglobin 0.6 L, O2 Concentration % RA, O2 Delivery Method RA, Phlebotomy Draw Site RIGHT RADIAL 09/12/17 1030: Anion Gap 13, Estimated GFR 42 L, BUN/Creatinine Ratio 26.7 H, Troponin I 0.16 *H, APTT 63 H, CBC w Diff NO MAN DIFF REQ, RBC 4.55, MCV 90.2, MCH 29.3, MCHC 32.5 L, RDW 16.4 H, MPV 7.9, Gran % 84.8 H, Lymphocytes % 10.0 L, Monocytes % 5.0, Eosinophils % 0.1, Basophils % 0.1, Absolute Granulocytes 8.7 H, Absolute Lymphocytes 1.0 L, Absolute Monocytes 0.5, Absolute Eosinophils 0, Absolute Basophils 0 09/12/17 0215: Lactic Acid 1.9 09/12/17 0215: Magnesium 1.7, Troponin I 0.17 *H, TSH 1.580, Free T4 3.16 H 09/11/17 2340: Troponin I 0.16 *H 09/11/17 2340: Lactic Acid 2.2 H 09/11/17 2004: Lactic Acid 2.9 H 09/11/17 1811: Troponin I 0.12 *H 09/11/17 1440: Lactic Acid 2.3 H 09/11/17 1220: Anion Gap 13, Estimated GFR 42 L, BUN/Creatinine Ratio 30.8 H, Glucose 157 H, Lactic Acid 2.1, Calcium 9.6, Total Bilirubin 0.4, AST 26, ALT 48, Alkaline Phosphatase 91, Troponin I 0.13 *H, [id number] Pept 2970 H, Total Protein 6.4, Albumin 3.7, Globulin 2.7, Albumin/Globulin Ratio 1.4, PT 10.0, INR 0.95, APTT 29, CBC w Diff NO MAN DIFF REQ, RBC 4.66, MCV 88.6, MCH 29.3, MCHC 33.0, RDW 15.9 H, MPV 7.0 L, Gran % 84.4 H, Lymphocytes % 11.5 L, Monocytes % 3.6, Eosinophils % 0.4, Basophils % 0.1, Absolute Granulocytes 11.1 H, Absolute Lymphocytes 1.5, Absolute Monocytes 0.5, Absolute Eosinophils 0.1, Absolute Basophils 0 09/11/17 1213: Urinalysis LIGHT H, Urine Color YEL, Urine Clarity HAZY H, Urine pH 6.5, Ur Specific [place] 1.025, Urine Protein 100 H, Urine Ketones NEG, Urine Nitrite NEG, Urine Bilirubin NEG, Urine Urobilinogen 0.2, Ur Leukocyte Esterase MOD H, Ur Microscopic SEDIMENT EXAMINED, Urine RBC 5-10 H, Urine WBC 50-75 H, Ur Epithelial Cells MOD H, Urine Bacteria FEW H, Hyaline Casts 1-3 H, Granular Casts RARE H, Urine Mucus RARE, Urine Hemoglobin TRACE-INTACT, Urine Glucose 100 H Microbiology 09/12 1030 NASOPHARYN: Influenza Virus A & B Rapid Smear - COMP 09/11 1440 BLOOD: Blood Culture - RES 09/11 1220 BLOOD: Blood Culture - RES 09/11 1213 URINE ROUT: Urine Culture - COMP Microbiology 09/12 1030 NASOPHARYN: Influenza Virus A & B Rapid Smear - COMP 09/11 1440 BLOOD: Blood Culture - RES 09/11 1220 BLOOD: Blood Culture - RES 09/11 1213 URINE ROUT: Urine Culture - COMP Vital Signs Date Time Temp Pulse Resp B/P B/P Pulse O2 O2 Flow FiO2 Mean Ox Delivery Rate 09/13 0818 78 154/86 09/13 0640 98.0 78 22 154/86 97 Room Air 09/12 2313 98.6 92 20 138/60 96 Room Air 02/03 2206 96 138/60 02/ 1528 98.7 120 18 140/62 95
[2017-09-13 14:56] VITALS: BP 138/84
[2017-09-13 21:04] LABS: PTT 62 SEC (25-37)
[2017-09-13 21:59] VITALS: BP 116/60
[2017-09-14 06:29] VITALS: BP 150/80
[2017-09-14 08:11] LABS: ABSOLUTE BASOPHIL COUNT 0 /CUMM (0.0-0.2); ABSOLUTE EOSINOPHIL COUNT 0 /CUMM (0.0-0.7); ABSOLUTE GRANULOCYTE CT 8.3 /CUMM (1.4-6.5); ABSOLUTE LYMPH COUNT 0.9 /CUMM (1.2-3.4); ABSOLUTE MONOCYTE COUNT 0.4 /CUMM (0.10-0.60); BASOPHIL % 0.2 % (0.0-2.0); EOSINOPHIL % 0.2 % (0-5); GRANULOCYTE % 86.2 % (42.2-75.2); HEMATOCRIT 32.1 % (37-47); MEAN CORPUSCULAR HGB 29.3 PG (27.0-31.0); MEAN CORPUSCULAR HGB CONC 32.6 G/DL (33.0-37.0); MEAN CORPUSCULAR VOLUME 89.8 FL (81.0-99.0); MEAN PLATELET VOLUME 7.9 FL (7.4-10.4); PLATELET COUNT 259 /CUMM (130-400); RBC DISTRIBUTION WIDTH 16.1 % (11.5-14.5); RED BLOOD CELL CT 3.58 /CUMM (4.20-5.40); WHITE BLOOD CELL COUNT 9.6 /CUMM (4.8-10.8)
[2017-09-14 08:23] LABS: PTT 66 SEC (25-37)
--- NOTE | 2017-09-14 08:30 | PN- Housestaff ---
Subjective Follow-up For: Bilateral leg swelling, cellulitis NSTEMI CKD Tele-Events Since Last Visit: SR 63-79, PAC PVC Subjective: Patient visited today, was lying in bed comfortably in no acute distress, was alert and oriented. Reported significant improvement in bilateral leg swelling. feels better but still did not tried to ambulate. Dressing in place. No fever or chills, no shortness of breathing at rest, no chest pain, no other events. Review of Systems Constitutional: Reports: see HPI. Objective Last 24 Hrs of Vital Signs/I&O Vital Signs Date Time Temp Pulse Resp B/P B/P Pulse O2 O2 Flow FiO2 Mean Ox Delivery Rate 09/14 0908 70 124/60 02 0906 70 124/60 09/14 0800 Room Air 09/14 0629 98.3 64 12 150/80 95 Room Air 09/13 2159 98.1 78 29 116/60 96 / 2119 79 116/60 / 1456 99.0 76 20 138/84 99 Room Air Intake & Output 09/14 1600 09/14 0800 09/14 0000 Intake Total 335 335 Output Total 500 450 Balance -165 -115 Intake, IV 135 135 Intake, Oral 200 200 Output, Urine 500 450 Patient 169 lb Weight Weight Bed scale Measurement Method Physical Exam General Appearance: Alert, Oriented X3, Cooperative, No Acute Distress Skin: bilateral leg skin changes Skin Temp/Moisture Exam: Warm/Dry Sepsis Skin Exam (color): Normal for Ethnicity HEENT: Atraumatic, EOMI, Mucous Membr. moist/pink Cardiovascular: Regular Rate, Normal S1, Normal S2 Lungs: Clear to Auscultation Abdomen: Soft, No Tenderness Neurological: Normal Speech Extremities: Bilateral leg edema, significantly improved Current Medications: Current Medications Sig/Michael Start time Last Medication Dose Route Stop Time Status Admin Acetaminophen 325 MG Q6P PRN 09/11 2030 AC PO Aspirin 81 MG DAILY 09/12 1823 AC 09/14 PO 0908 Atorvastatin Calcium 40 MG 1700 / 1700 AC 09/13 PO 1724 Ceftriaxone Sodium 1,000 MG DAILY@1530 02/03 1530 AC 09/13 IV 1723 Heparin Sodium/ 25,000 UNIT Q24H / 0500 AC 09/14 Dextrose IV 0910 Dextrose/Water 500 ML Metoprolol Tartrate 12.5 MG BID 09/12 2200 AC 09/14 PO 0908 Omeprazole 20 MG DAILY 09/12 1000 AC 09/14 PO 0908 Oxycodone HCl 5 MG Q6 PRN 09/11 2029 AC 09/14 PO 1011 Potassium Chloride 20 MEQ BID 09/11 2199 AC 09/14 PO 0908 Prednisone 5 MG TID 09/11 2199 AC 09/14 PO 0908 Spironolactone 25 MG DAILY 09/11 2008 AC 09/14 PO 0908 Tramadol HCl 50 MG Q6 PRN 09/11 2029 AC 09/13 PO 2248 Last 24 Hrs of Lab/Luis Results Last 24 Hrs of Labs/Mics: Laboratory Tests 09/14/17 0700: Anion Gap 7, Estimated GFR 59 L, BUN/Creatinine Ratio 26.7 H, APTT 66 H, CBC w Diff MAN DIFF ORDERED, RBC 3.58 L, MCV 89.8, MCH 29.3, MCHC 32.6 L, RDW 16.1 H, MPV 7.9, Gran % 86.2 H, Lymphocytes % 8.9 L, Monocytes % 4.5, Eosinophils % 0.2, Basophils % 0.2, Absolute Granulocytes 8.3 H, Segmented Neutrophils 83 H, Band Neutrophils 3, Absolute Lymphocytes 0.9 L, Lymphocytes 10 L, Monocytes 2, Absolute Monocytes 0.4, Absolute Eosinophils 0, Absolute Basophils 0, Myelocytes 2 H, Platelet Estimate ADEQUATE, Normocytic RBCs VERIFIED, Normochromic RBCs VERIFIED 09/13/171953: APTT 62 H Assessment/Plan Assessment: Patient is 86-year-old F prented with bilateral leg pain and severe weakness PMH: hypertension, chronic venous insufficiency, bypass surgery of lower extremity, recurrent cellulitis, CKD, dermatitis, ? Acquired factor VIII deficiensy. VS, Ph Ex at admission: BP 156/81, no fever, MD 107, RR 18, saturating well in room air Labs at admission: WBC 13.2, PLT 455, CR 1.2, BUN 37, BUN/creatinine 30.8, LA 2.3 Tn 0.13, PRO BNP 2970 U/A: 50-75 WBC, LE positive Imagings at admission: No acute pulmonary process. Severe T8 compression fracture resulting in acute kyphosis at this level. Similar findings probably were present on the previous chest AP exam 05/30/2017. If patient has acute pain in this region an MRI or bone scan can be performed. Patient was admitted to telemetry floor for management of following conditions: Bilateral acute leg swelling and pain DVT ruled out - Continue IV Lasix 60 mg - contine abx therapy Increased TN with tacyhcaardia most likely type 2 UT - Serial Tn and EKG : trops trended down -on IV heparin, statin, metoprolol per cardilogy - d dmier less than 200 - t4 3 we will repeat and endo consult tomorrow Drew lactic acid: normal AG, we will monitor -resolved Active UA: patient did not reported any symptoms. We will obtain urine culture - IV ceftriaxone administered - Consider to hold off antibiotics - follow urine culture Leukocytosis Was likely from infection, UTI, can also be related to prednisone, resolved and will continue to monitor for now DNR/DNI DVT ppx: Pharmacological, no ALPS diet heart healthy Problem List: 1. Chronic venous insufficiency 2. Lower extremity cellulitis 3. UTI (urinary tract infection) Pain Ratin (improved) Pain Location: bilateral foot, L>R Pain Goal: Pain 4 or less Pain Plan: Continue current plan Tomorrow's Labs & Rationales: CBC BEP
[2017-09-14 09:06] VITALS: BP 124/60
--- NOTE | 2017-09-14 10:43 | PN- Att Addend ---
Attending Addendum Attending Brief Note Patient in bed still feels weak has not been standing yet. Vital signs are stable no fever, the legs are still wrapped white count 9600 . No other major changes on physical will get a physical therapy evaluation to decide if the patient needs short-term rehabilitation. Have wound Center recheck the legs, continue antibiotic therapy. Blood culture and urine cultures negative so far Intake & Output 09/14 0400 09/13 1600 09/12 040 Intake Total 335 335 890 600 400 Output Total 500 450 721 165 5997 400 Balance -165 -115 290 275 -1350 -400 Intake, IV 135 135 150 Intake, Oral 200 200 740 600 400 Output, Urine 500 450 976 499 0089 400 Patient 169 lb 167 lb 153 lb 115 lb Weight Weight Bed scale Bed scale Reported by Patient Measurement Method Current Medications Sig/Michael Start time Last Medication Dose Route Stop Time Status Admin Acetaminophen 325 MG Q6P PRN 09/11 2029 AC PO Aspirin 81 MG DAILY 09/12 1823 AC 09/14 PO 0908 Atorvastatin Calcium 40 MG 1700 09/13 1700 AC 09/13 PO 1724 Ceftriaxone Sodium 1,000 MG DAILY@1530 /03 1530 AC 09/13 IV 1723 Heparin Sodium/ 25,000 UNIT Q24H 09/12 0500 AC 09/14 Dextrose IV 0910 Dextrose/Water 500 ML Metoprolol Tartrate 12.5 MG BID 09/12 2199 AC 09/14 PO 0908 Omeprazole 20 MG DAILY 09/12 1000 AC 09/14 PO 0908 Oxycodone HCl 5 MG Q6 PRN 09/11 2029 AC 09/14 PO 1011 Potassium Chloride 20 MEQ BID 09/11 2199 AC 09/14 PO 0908 Prednisone 5 MG TID 09/11 2199 AC 09/14 PO 0908 Spironolactone 25 MG DAILY 09/11 2008 AC 09/14 PO 0908 Tramadol HCl 50 MG Q6 PRN 09/11 2029 AC 09/13 PO 2248 Laboratory Tests 09/14/17 0700: Anion Gap 7, Estimated GFR 59 L, BUN/Creatinine Ratio 26.7 H, APTT 66 H, CBC w Diff MAN DIFF ORDERED, RBC 3.58 L, MCV 89.8, MCH 29.3, MCHC 32.6 L, RDW 16.1 H, MPV 7.9, Gran % 86.2 H, Lymphocytes % 8.9 L, Monocytes % 4.5, Eosinophils % 0.2, Basophils % 0.2, Absolute Granulocytes 8.3 H, Segmented Neutrophils 83 H, Band Neutrophils 3, Absolute Lymphocytes 0.9 L, Lymphocytes 10 L, Monocytes 2, Absolute Monocytes 0.4, Absolute Eosinophils 0, Absolute Basophils 0, Myelocytes 2 H, Platelet Estimate ADEQUATE, Normocytic RBCs VERIFIED, Normochromic RBCs VERIFIED 09/13/17 1954: APTT 62 H 09/13/17 1135: APTT 100 H 09/13/17 0640: Anion Gap 10, Estimated GFR 47 L, BUN/Creatinine Ratio 28.2 H, Free T4 1.39, CBC w Diff NO MAN DIFF REQ, RBC 3.82 L, MCV 89.0, MCH 29.3, MCHC 32.9 L, RDW 16.1 H, MPV 7.7, Gran % 85.1 H, Lymphocytes % 8.6 L, Monocytes % 6.0, Eosinophils % 0.2, Basophils % 0.1, Absolute Granulocytes 8.1 H, Absolute Lymphocytes 0.8 L, Absolute Monocytes 0.6, Absolute Eosinophils 0, Absolute Basophils 0 09/12/17 2200: D-Dimer High Sensitivty < 200 09/12/17 2200: APTT > 120 *H 09/12/171944: pH 7.53 H, pCO2 30 L, pO2 89, HCO3 24, ABG O2 Sat (Measured) 96.0, Carboxyhemoglobin 0.6 L, O2 Concentration % RA, O2 Delivery Method RA, Phlebotomy Draw Site RIGHT RADIAL 09/12/17 1030: Anion Gap 13, Estimated GFR 42 L, BUN/Creatinine Ratio 26.7 H, Troponin I 0.16 *H, APTT 63 H, CBC w Diff NO MAN DIFF REQ, RBC 4.55, MCV 90.2, MCH 29.3, MCHC 32.5 L, RDW 16.4 H, MPV 7.9, Gran % 84.8 H, Lymphocytes % 10.0 L, Monocytes % 5.0, Eosinophils % 0.1, Basophils % 0.1, Absolute Granulocytes 8.7 H, Absolute Lymphocytes 1.0 L, Absolute Monocytes 0.5, Absolute Eosinophils 0, Absolute Basophils 0 09/12/17 0215: Lactic Acid 1.9 09/12/17 0215: Magnesium 1.7, Troponin I 0.17 *H, TSH 1.580, Free T4 3.16 H 09/11/17 2340: Troponin I 0.16 *H 09/11/17 2340: Lactic Acid 2.2 H 09/11/172003: Lactic Acid 2.9 H 09/11/17 1811: Troponin I 0.12 *H 09/11/17 1440: Lactic Acid 2.3 H 09/11/17 1220: Anion Gap 13, Estimated GFR 42 L, BUN/Creatinine Ratio 30.8 H, Glucose 157 H, Lactic Acid 2.1, Calcium 9.6, Total Bilirubin 0.4, AST 26, ALT 48, Alkaline Phosphatase 91, Troponin I 0.13 *H, Zfp-U-Djylcfocinx Pept 2970 H, Total Protein 6.4, Albumin 3.7, Globulin 2.7, Albumin/Globulin Ratio 1.4, PT 10.0, INR 0.95, APTT 29, CBC w Diff NO MAN DIFF REQ, RBC 4.66, MCV 88.6, MCH 29.3, MCHC 33.0, RDW 15.9 H, MPV 7.0 L, Gran % 84.4 H, Lymphocytes % 11.5 L, Monocytes % 3.6, Eosinophils % 0.4, Basophils % 0.1, Absolute Granulocytes 11.1 H, Absolute Lymphocytes 1.5, Absolute Monocytes 0.5, Absolute Eosinophils 0.1, Absolute Basophils 0 09/11/17 1213: Urinalysis LIGHT H, Urine Color YEL, Urine Clarity HAZY H, Urine pH 6.5, Ur Specific [place] 1.025, Urine Protein 100 H, Urine Ketones NEG, Urine Nitrite NEG, Urine Bilirubin NEG, Urine Urobilinogen 0.2, Ur Leukocyte Esterase MOD H, Ur Microscopic SEDIMENT EXAMINED, Urine RBC 5-10 H, Urine WBC 50-75 H, Ur Epithelial Cells MOD H, Urine Bacteria FEW H, Hyaline Casts 1-3 H, Granular Casts RARE H, Urine Mucus RARE, Urine Hemoglobin TRACE-INTACT, Urine Glucose 100 H Microbiology 09/12 1030 NASOPHARYN: Influenza Virus A & B Rapid Smear - COMP 09/11 1440 BLOOD: Blood Culture - RES 09/11 1220 BLOOD: Blood Culture - RES 09/11 1213 URINE ROUT: Urine Culture - COMP Microbiology 09/12 1030 NASOPHARYN: Influenza Virus A & B Rapid Smear - COMP 09/11 1440 BLOOD: Blood Culture - RES 09/11 1220 BLOOD: Blood Culture - RES 09/11 1213 URINE ROUT: Urine Culture - COMP Vital Signs Date Time Temp Pulse Resp B/P B/P Pulse O2 O2 Flow FiO2 Mean Ox Delivery Rate 09/14 0908 70 124/60 09/14 0906 70 124/60 09/14 0800 Room Air 09/14 0629 98.3 64 12 150/80 95 Room Air 09/13 2159 98.1 78 29 116/60 96 09/13 2119 79 116/60 09/13 1456 99.0 76 20 138/84 99 Room Air
--- NOTE | 2017-09-14 12:10 | PN- Cardiology ---
Subjective Subjective: Resting comfortably. Denies any chest pain or dyspnea. Objective Vital Signs and I&Os Vital Signs Date Time Temp Pulse Resp B/P B/P Pulse O2 O2 Flow FiO2 Mean Ox Delivery Rate 09/14 907 70 124/60 09/14 09 70 124/60 09/14 0800 Room Air 09/14 0629 98.3 64 12 150/80 95 Room Air 09/13 2159 98.1 78 29 116/60 96 09/13 2119 79 116/60 09/13 1456 99.0 76 20 138/84 99 Room Air Intake & Output 09/14 1600 09/14 0809/14 0000 09/13 1600 09/13 0809/13 0000 Intake Total 335 335 650 240 600 Output Total 500 450 600 325 Balance -165 -115 50 240 275 Intake, IV 135 135 150 Intake, Oral 200 200 500 240 600 Output, Urine 500 450 600 325 Patient 169 lb 167 lb Weight Weight Bed scale Bed scale Measurement Method Physical Exam: General: no apparent distress. Alert. Eyes: No obvious scleral icterus. HEENT: No jugular venous distention or abnormal jugular venous pulsations. Cardiovascular: Normal intensity S1/S2. Regular. Respiratory: No rales or rhonchi Abdomen: Soft, nontender with no guarding or rebound tenderness. Musculoskeletal: No clubbing or cyanosis noted, bilateral lower extremity wrappings with edema/erythema Skin: Warm, stasis changes noted Neurologic: No gross focal deficits noted. Current Medications: Current Medications Sig/Michael Start time Last Medication Dose Route Stop Time Status Admin Acetaminophen 325 MG Q6P PRN 09/11 2030 AC PO Aspirin 81 MG DAILY 09/12 1823 AC 09/14 PO 0908 Atorvastatin Calcium 40 MG 1700 09/13 1700 AC 09/13 PO 1724 Ceftriaxone Sodium 1,000 MG DAILY@1530 09/12 1530 AC 09/13 IV 1723 Heparin Sodium/ 25,000 UNIT Q24H 09/12 0500 AC 09/14 Dextrose IV 0910 Dextrose/Water 500 ML Metoprolol Tartrate 12.5 MG BID 09/12 2200 AC 09/14 PO 0908 Omeprazole 20 MG DAILY 09/12 1000 AC 09/14 PO 0908 Oxycodone HCl 5 MG Q6 PRN 09/11 2030 AC 09/14 PO 1011 Potassium Chloride 20 MEQ BID 09/11 2199 AC 09/14 PO 0908 Prednisone 5 MG TID 09/11 2199 AC 09/14 PO 0908 Spironolactone 25 MG DAILY 09/11 2008 AC 09/14 PO 0908 Tramadol HCl 50 MG Q6 PRN 09/11 2029 AC 09/13 PO 8 Results Last 48 Hrs of Labs/Mics: Laboratory Tests 09/14/17 0700: Anion Gap 7, Estimated GFR 59 L, BUN/Creatinine Ratio 26.7 H, APTT 66 H, CBC w Diff MAN DIFF ORDERED, RBC 3.58 L, MCV 89.8, MCH 29.3, MCHC 32.6 L, RDW 16.1 H, MPV 7.9, Gran % 86.2 H, Lymphocytes % 8.9 L, Monocytes % 4.5, Eosinophils % 0.2, Basophils % 0.2, Absolute Granulocytes 8.3 H, Segmented Neutrophils 83 H, Band Neutrophils 3, Absolute Lymphocytes 0.9 L, Lymphocytes 10 L, Monocytes 2, Absolute Monocytes 0.4, Absolute Eosinophils 0, Absolute Basophils 0, Myelocytes 2 H, Platelet Estimate ADEQUATE, Normocytic RBCs VERIFIED, Normochromic RBCs VERIFIED 09/13/171953: APTT 62 H 09/13/17 1135: APTT 100 H 09/13/17 0640: Anion Gap 10, Estimated GFR 47 L, BUN/Creatinine Ratio 28.2 H, Free T4 1.39, CBC w Diff NO MAN DIFF REQ, RBC 3.82 L, MCV 89.0, MCH 29.3, MCHC 32.9 L, RDW 16.1 H, MPV 7.7, Gran % 85.1 H, Lymphocytes % 8.6 L, Monocytes % 6.0, Eosinophils % 0.2, Basophils % 0.1, Absolute Granulocytes 8.1 H, Absolute Lymphocytes 0.8 L, Absolute Monocytes 0.6, Absolute Eosinophils 0, Absolute Basophils 0 09/12/172199: D-Dimer High Sensitivty < 200 09/12/172199: APTT > 120 *H 09/12/171944: pH 7.53 H, pCO2 30 L, pO2 89, HCO3 24, ABG O2 Sat (Measured) 96.0, Carboxyhemoglobin 0.6 L, O2 Concentration % RA, O2 Delivery Method RA, Phlebotomy Draw Site RIGHT RADIAL Recent Imaging Studies: Telemetry tracings shows sinus rhythm with occasional PACs/PVCs Doppler: Normal triplex scan without evidence of deep venous thrombosis involving the bilateral lower extremities. Assessment/Plan Assessment/Plan 1. Cellulitis 2. Minimally elevated troponins unlikely due to any acute cardiac pathology 3. Hx of Right bundle-branch block 4. Hypertension 5. Acute on chronic renal insufficiency 6. Chronic peripheral vascular disease/venous insufficiency with edema 7. Anemia The patient continues to deny any chest pain, dyspnea, or palpitations. Telemetry tracings were personally reviewed and shows sinus rhythm with occasional ectopy and no evidence of sustained arrhythmia. No DVT on Doppler's and d-dimer was normal which has a high negative predictive value for excluding pulmonary embolism; heparin drip should be discontinued. Antibiotics per the medical team. Can continue on aspirin, statin and beta daniel. Can resume her outpatient diuretics. No additional inpatient cardiac testing is required. She can follow-up in our office within one week of discharge. Nam Vega MD [facility] Continue telemetry? No
[2017-09-14 14:36] VITALS: BP 122/58
[2017-09-14 22:23] VITALS: BP 138/60
[2017-09-15 07:13] VITALS: BP 110/70
--- NOTE | 2017-09-15 09:27 | PN- Cardiology ---
Subjective Subjective: The patient is awake, alert The events of the last 24 hours as well as telemetry were reviewed. Review of Systems: The review of systems is negative for chest pains, palpitations nor lightheadedness. The remainder of the 14 point review of systems is noncontributory with the exception of above. Objective Vital Signs and I&Os Vital Signs Date Time Temp Pulse Resp B/P B/P Pulse O2 O2 Flow FiO2 Mean Ox Delivery Rate 09/15 0713 97.9 74 16 110/70 96 Room Air 09/14 2223 97.9 69 18 138/60 99 09/14 2124 138/80 09/14 1436 98.8 67 18 122/58 97 Intake & Output 09/15 0800 09/15 0000 09/14 1600 09/14 0000 Intake Total 400 260 701.85 335 335 Output Total 675 750 450 500 450 Balance -275 -490 251.85 -165 -115 Intake, IV 20 101.85 135 135 Intake, Oral 400 240 600 200 200 Output, Urine 675 750 450 500 450 Patient 169 lb Weight Weight Bed scale Measurement Method Physical Exam: General: Nontoxic, no apparent distress. HEENT: Sclera and conjunctiva within normal limits, without xanthelasmas. Neck: Carotids 2+ without bruits. Respiratory: Clear to auscultation, air movement is good, without accessory respiratory muscle use. Heart: Regular rate and rhythm, without murmurs, without JVD. Abdomen: Soft, nontender, no masses, normoactive bowel sounds. Extremities: Without clubbing, cyanosis, without edema. Neuro: Nonfocal exam, strength, 5 out of 5 Skin: Within normal limits without lesions. Psych: Mood and affect: Normal Current Medications: Current Medications Sig/Michael Start time Last Medication Dose Route Stop Time Status Admin Acetaminophen 325 MG Q6P PRN 09/11 2030 AC PO Aspirin 81 MG DAILY 09/12 1823 AC 09/14 PO 0908 Atorvastatin Calcium 40 MG 1700 / 1700 AC 09/14 PO 1542 Ceftriaxone Sodium 1,000 MG DAILY@1530 02/03 1530 AC 02/05 IV 1541 Furosemide 40 MG DAILY 09/14 1500 AC 09/14 PO 1541 Heparin Sodium/ 25,000 UNIT Q24H 09/12 0500 DC 09/14 Dextrose IV 0910 Dextrose/Water 500 ML Metoprolol Tartrate 12.5 MG BID 09/12 2199 AC 09/14 PO 2123 Omeprazole 20 MG DAILY 09/12 999 AC 09/14 PO 09 Oxycodone HCl 5 MG Q6 PRN 09/11 2029 AC 09/14 PO 2123 Potassium Chloride 20 MEQ DAILY 09/14 1459 DC PO Potassium Chloride 20 MEQ BID 09/11 2199 AC 09/14 PO 2122 Prednisone 5 MG TID 09/11 2199 AC 09/14 PO 2122 Spironolactone 25 MG DAILY 09/11 2008 AC 09/14 PO 09 Tramadol HCl 50 MG Q6 PRN 09/11 2029 AC 09/13 PO 2248 Results Last 48 Hrs of Labs/Mics: Laboratory Tests 09/14/17 1900: PT Cancelled, INR Cancelled 09/14/17 0700: Anion Gap 7, Estimated GFR 59 L, BUN/Creatinine Ratio 26.7 H, APTT 66 H, CBC w Diff MAN DIFF ORDERED, RBC 3.58 L, MCV 89.8, MCH 29.3, MCHC 32.6 L, RDW 16.1 H, MPV 7.9, Gran % 86.2 H, Lymphocytes % 8.9 L, Monocytes % 4.5, Eosinophils % 0.2, Basophils % 0.2, Absolute Granulocytes 8.3 H, Segmented Neutrophils 83 H, Band Neutrophils 3, Absolute Lymphocytes 0.9 L, Lymphocytes 10 L, Monocytes 2, Absolute Monocytes 0.4, Absolute Eosinophils 0, Absolute Basophils 0, Myelocytes 2 H, Platelet Estimate ADEQUATE, Normocytic RBCs VERIFIED, Normochromic RBCs VERIFIED 09/13/17 1954: APTT 62 H 09/13/17 1135: APTT 100 H Assessment/Plan Assessment/Plan The patient is an 86-year-old woman with a past medical history of peripheral vascular disease and hypertension. She presented to our hospital with cellulitis and had positive SIRS criteria. She subsequently was noted to have mildly elevated troponin isoenzymes. 1. Cellulitis 2. Minimally elevated troponins unlikely due to any acute cardiac pathology 3. Hx of Right bundle-branch block 4. Hypertension 5. Acute on chronic renal insufficiency 6. Chronic peripheral vascular disease/venous insufficiency with edema 7. Anemia The patient's troponin isoenzymes are in a flattened, plateau fashion. The overall etiology is likely secondary to her infectious process, and not secondary to a primary cardiac etiology. The patient had an echocardiogram performed approximately one year ago which demonstrated normal cardiac function. We will continue to treat her primary cellulitis, and maintain her cardiac regimen without change. Further cardiac testing will be performed as an outpatient. Continue telemetry? No
[2017-09-15] MEDS ORDERED: ALDACTONE25 MG PO (09:49)
[2017-09-15] MEDS ORDERED: METOPROLOL TART25 M1 PO (09:49)
[2017-09-15] MEDS ORDERED: ASPIRIN81 M4 PO (09:49)
[2017-09-15] MEDS ORDERED: ATORVASTATIN CA40 M1 PO (09:49)
--- NOTE | 2017-09-15 09:51 | Patient Discharge Instructions ---
Discharge Instructions General Discharge Information You were seen/treated for: Cellulitis Positive troponins Special Instructions: -Please follow-up with your primary care provider within 7 days after discharge. -Please follow-up with your criminal attorney 7 days after discharge -Please [facility]up with [facility] for leg swelling -Please follow-up with vascular surgery 7 days after discharge -We have made changes to your home medications, please read the instructions carefully. -Please come back to the hospital if your symptoms got worse. Diet Recommended Diet: Heart Healthy Activity Full Activity/No Limits: Yes (as tolerated) Acute Coronary Syndrome Inclusion Criteria At DC or during hospital stay patient has or had the following: ACS DIAGNOSIS No Discharge Core Measures Meds if any: Prescribed or Continued at Discharge Meds if any: NOT Prescribed or Continued at Discharge Congestive Heart Failure Inclusion Criteria At DC or during hospital stay patient has or had the following: CHF DIAGNOSIS No Discharge Core Measures Meds if any: Prescribed or Continued at Discharge Meds if any: NOT Prescribed or Continued at Discharge Cerebrovascular accident Inclusion Criteria At DC or during hospital stay patient has or had the following: CVA/TIA Diagnosis No Discharge Core Measures Meds if any: Prescribed or Continued at Discharge Meds if any: NOT Prescribed or Continued at Discharge Venous thromboembolism Inclusion Criteria VTE Diagnosis No VTE Type NONE VTE Confirmed by (Test) NONE Discharge Core Measures - Per Current guidelines, there needs to be overlap - treatment for the first 5 days of Warfarin therapy. - If discharged on Warfarin prior to 5 days of - overlap therapy, the patient will need to be - assessed for post discharge needs including - *Post discharge parental anticoagulation - *Warfarin and/or parental anticoagulation education - *Follow up date to check INR post discharge At least 5 days overlap therapy as Inpatient No Meds if any: Prescribed or Continued at Discharge Note: Overlap Therapy is Warfarin and Anticoagulant Meds if any: NOT Prescribed or Continued at Discharge
--- NOTE | 2017-09-15 10:11 | PN- Att Addend ---
Attending Addendum Attending Brief Note Overall better, but still very weak and had a physical therapy evaluation and can hardly walk a few feet, patient also agrees she would benefit from short- term rehabilitation Her vital signs are stable, has no fever, the legs are wrapped continue present treatment and look for short-term rehabilitation home Intake & Output 09/15 0400 09/14 1600 09/14 0400 09/13 1600 09/13 0400 Intake Total 500 084 1268.85 335 890 600 Output Total 675 750 950 450 600 325 Balance -275 -490 86.85 -115 290 275 Intake, IV 20 236.85 135 150 Intake, Oral 400 240 800 200 740 600 Output, Urine 675 750 950 450 600 325 Patient 169 lb 167 lb Weight Weight Bed scale Bed scale Measurement Method Current Medications Sig/Michael Start time Last Medication Dose Route Stop Time Status Admin Acetaminophen 325 MG Q6P PRN 09/11 2029 AC PO Amoxicillin/ 875 MG Q12 09/15 1000 UNVr Clavulanate Potassium PO Aspirin 81 MG DAILY 09/12 1823 AC 09/14 PO 0908 Atorvastatin Calcium 40 MG 1700 09/13 1700 AC 09/14 PO 1542 Ceftriaxone Sodium 1,000 MG DAILY@1530 09/12 1530 DC 09/14 IV 1541 Furosemide 40 MG DAILY 09/14 1500 AC 09/14 PO 1541 Heparin Sodium/ 25,000 UNIT Q24H 09/12 0500 DC 09/14 Dextrose IV 0910 Dextrose/Water 500 ML Metoprolol Tartrate 12.5 MG BID 09/12 2199 AC 09/14 PO 2124 Omeprazole 20 MG DAILY 09/12 1000 AC 09/14 PO 0908 Oxycodone HCl 5 MG Q6 PRN 09/11 2029 AC 09/14 PO 2124 Potassium Chloride 20 MEQ DAILY 09/14 1459 DC PO Potassium Chloride 20 MEQ BID 09/11 2199 AC 09/14 PO 2123 Prednisone 5 MG TID 09/11 2199 AC 09/14 PO 2123 Spironolactone 25 MG DAILY 09/11 2008 AC 09/14 PO 0908 Tramadol HCl 50 MG Q6 PRN 09/11 2029 AC 09/13 PO 2248 Laboratory Tests 09/14/17 1900: PT Cancelled, INR Cancelled 09/14/17 0700: Anion Gap 7, Estimated GFR 59 L, BUN/Creatinine Ratio 26.7 H, APTT 66 H, CBC w Diff MAN DIFF ORDERED, RBC 3.58 L, MCV 89.8, MCH 29.3, MCHC 32.6 L, RDW 16.1 H, MPV 7.9, Gran % 86.2 H, Lymphocytes % 8.9 L, Monocytes % 4.5, Eosinophils % 0.2, Basophils % 0.2, Absolute Granulocytes 8.3 H, Segmented Neutrophils 83 H, Band Neutrophils 3, Absolute Lymphocytes 0.9 L, Lymphocytes 10 L, Monocytes 2, Absolute Monocytes 0.4, Absolute Eosinophils 0, Absolute Basophils 0, Myelocytes 2 H, Platelet Estimate ADEQUATE, Normocytic RBCs VERIFIED, Normochromic RBCs VERIFIED 09/13/17 1954: APTT 62 H 09/13/17 1135: APTT 100 H 09/13/17 0640: Anion Gap 10, Estimated GFR 47 L, BUN/Creatinine Ratio 28.2 H, Free T4 1.39, CBC w Diff NO MAN DIFF REQ, RBC 3.82 L, MCV 89.0, MCH 29.3, MCHC 32.9 L, RDW 16.1 H, MPV 7.7, Gran % 85.1 H, Lymphocytes % 8.6 L, Monocytes % 6.0, Eosinophils % 0.2, Basophils % 0.1, Absolute Granulocytes 8.1 H, Absolute Lymphocytes 0.8 L, Absolute Monocytes 0.6, Absolute Eosinophils 0, Absolute Basophils 0 09/12/170: D-Dimer High Sensitivty < 200 09/12/17 2200: APTT > 120 *H 09/12/17 1945: pH 7.53 H, pCO2 30 L, pO2 89, HCO3 24, ABG O2 Sat (Measured) 96.0, Carboxyhemoglobin 0.6 L, O2 Concentration % RA, O2 Delivery Method RA, Phlebotomy Draw Site RIGHT RADIAL 09/12/17 1030: Anion Gap 13, Estimated GFR 42 L, BUN/Creatinine Ratio 26.7 H, Troponin I 0.16 *H, APTT 63 H, CBC w Diff NO MAN DIFF REQ, RBC 4.55, MCV 90.2, MCH 29.3, MCHC 32.5 L, RDW 16.4 H, MPV 7.9, Gran % 84.8 H, Lymphocytes % 10.0 L, Monocytes % 5.0, Eosinophils % 0.1, Basophils % 0.1, Absolute Granulocytes 8.7 H, Absolute Lymphocytes 1.0 L, Absolute Monocytes 0.5, Absolute Eosinophils 0, Absolute Basophils 0 Microbiology 09/12 1030 NASOPHARYN: Influenza Virus A & B Rapid Smear - COMP Microbiology 09/12 1030 NASOPHARYN: Influenza Virus A & B Rapid Smear - COMP Vital Signs Date Time Temp Pulse Resp B/P B/P Pulse O2 O2 Flow FiO2 Mean Ox Delivery Rate 09/15 0957 Room Air 09/15 0713 97.9 74 16 110/70 96 Room Air 09/14 2223 97.9 69 18 138/60 99 09/14 2124 138/80 02 1436 98.8 67 18 122/58 97
[2017-09-15 10:31] VITALS: BP 146/80
--- NOTE | 2017-09-15 11:50 | PN- Housestaff ---
Subjective Follow-up For: Bilateral leg swelling, cellulitis NSTEMI CKD Tele-Events Since Last Visit: Off telemetry Subjective: Patient visited today, was lying in bed comfortably in no acute distress, was alert and oriented. Reported improved bilateral leg swelling, also reported increased ankle pain. No fever or chills, no shortness of breathing, no chest pain, no other events. Patient was stable to be discharged to nursing facility. Review of Systems Constitutional: Reports: see HPI. Objective Last 24 Hrs of Vital Signs/I&O Vital Signs Date Time Temp Pulse Resp B/P B/P Pulse O2 O2 Flow FiO2 Mean Ox Delivery Rate 09/15 1449 97.6 74 18 140/80 09/15 1417 97.6 74 18 140/80 98 Room Air 09/15 1032 74 146/80 09/15 1031 146/80 09/15 0957 Room Air 09/15 0800 Room Air 09/15 0713 97.9 74 16 110/70 96 Room Air 09/14 2223 97.9 69 18 138/60 99 09/14 2124 138/80 Intake & Output 09/15 1600 09/15 0800 09/15 0000 Intake Total 840 400 260 Output Total 1150 675 750 Balance -310 -275 -490 Intake, IV 20 Intake, Oral 840 400 240 Output, Urine 1150 675 750 Physical Exam General Appearance: Alert, Oriented X3, Cooperative, No Acute Distress Skin: bilateral lower extremity skin change, dressing in place, erythema improved Skin Temp/Moisture Exam: Warm/Dry Sepsis Skin Exam (color): Normal for Ethnicity HEENT: Atraumatic, EOMI, Mucous Membr. moist/pink Cardiovascular: Normal S1, Normal S2 Lungs: Clear to Auscultation Abdomen: Soft, No Tenderness Neurological: Normal Speech, Can move toes Extremities: improved edema, dressing in place Current Medications: Current Medications Sig/Michael Start time Last Medication Dose Route Stop Time Status Admin Acetaminophen 325 MG Q6P PRN 09/11 2030 AC PO Amoxicillin/ 875 MG Q12 09/15 1000 AC 09/15 Clavulanate [place]assium PO 1118 Aspirin 81 MG DAILY 09/12 1823 AC 09/15 PO 1031 Atorvastatin Calcium 40 MG 1700 09/13 1700 AC 09/14 PO 1542 Ceftriaxone Sodium 1,000 MG DAILY@1530 09/12 1530 DC 02/05 IV 1541 Furosemide 40 MG DAILY 09/14 1500 AC 09/15 PO 1032 Metoprolol Tartrate 12.5 MG BID 09/12 2200 AC 09/15 PO 1032 Omeprazole 20 MG DAILY 09/12 1000 AC 09/15 PO 1033 Oxycodone HCl 5 MG Q6 PRN 09/11 2030 AC 09/15 PO 1408 Potassium Chloride 20 MEQ DAILY 09/14 1459 DC PO Potassium Chloride 20 MEQ BID 09/11 2200 AC 09/15 PO 1032 Prednisone 5 MG TID 09/11 2200 AC 09/15 PO 1033 Spironolactone 25 MG DAILY 09/11 2009 AC 09/15 PO 1031 Tramadol HCl 50 MG Q6 PRN 09/11 2030 AC 09/13 PO 2248 Last 24 Hrs of Lab/Luis Results Last 24 Hrs of Labs/Mics: Laboratory Tests 09/14/17 1900: PT Cancelled, INR Cancelled Assessment/Plan Assessment: Patient is 86-year-old F prented with bilateral leg pain and severe weakness PMH: hypertension, chronic venous insufficiency, bypass surgery of lower extremity, recurrent cellulitis, CKD, dermatitis, ? Acquired factor VIII deficiensy. Imagings at admission: No acute pulmonary process. Severe T8 compression fracture resulting in acute kyphosis at this level. Similar findings probably were present on the previous chest AP exam 05/30/2017. If patient has acute pain in this region an MRI or bone scan can be performed. Patient was admitted to telemetry floor for management of following conditions: Bilateral acute leg swelling and pain DVT ruled out Echo: Normal triplex scan without evidence of deep venous thrombosis involving the bilateral lower extremities. We continued IV Lasix 60 mg today. Initial antibiotics IV were started, with improvement of the condition was changed to by mouth antibiotics before discharge. Increased troponin with tacyhcaardia most likely type 2 AR. Serial Tn and EKG were followed and trops trended down. ACS was ruled out. IV heparin was initially administered. Statin, metoprolol were administered per cardilogy. With stabilization of condition patient was discharged with recommendation to follow in outpatient with cardiology. Drew lactic acid: normal AG, was monitored until resolved. Active UA: patient did not reported any symptoms. IV ceftriaxone administered. Urine culture was followed that remained negative. Leukocytosis Was likely from infection, UTI, can also be related to prednisone, resolved and we continued to monitor. DNR/DNI DVT ppx: Pharmacological, no ALPS diet heart healthy Patient was discharged with recommendations below: -Please follow-up with your primary care provider within 7 days after discharge. -Please follow-up with your transitions rn care coordinator 7 days after discharge -Please [facility] for leg swelling -Please follow-up with vascular surgery 7 years after discharge -We have made changes to your home medications, please read the instructions carefully. -Please come back to the hospital if your symptoms got worse. Problem List: 1. Lower extremity cellulitis 2. Bilateral lower leg cellulitis Pain Ratin Pain Location: Left ankle Pain Goal: Pain 4 or less Pain Plan: Continue current plan, will continue after discharge Tomorrow's Labs & Rationales: N/A
--- NOTE | 2017-09-15 14:02 | Discharge Summary ---
Visit Information Visit Dates Admission Date: 09/11/17 Discharge Date: 09/16/2017 Hospital Course Course Attending Physician: Velasquez Oswald MD Primary Care Physician: Margret LANGE,Velasquez Hospital Course: Patient is 86-year-old F with PMH of hypertension, chronic venous insufficiency, bypass surgery of lower extremity, recurrent cellulitis, CKD, dermatitis, ? Acquired factor VIII deficiensy, was BIBA to ED with chief complaint of bilateral leg pain and severe weakness. Patient reported to have increased swelling of bilateral legs for a week, while in the past 2-3 days legs became extremely swollen and red. patients was suffering from leg swelling for several years. Patient denied any smoking or alcohol intake. His at [place] alone in a nursing/ assisted living facility and ambulates with walker. Last 24 Hrs of Vital Signs/I&O Vital Signs Date Time Temp Pulse Resp B/P B/P Pulse O2 O2 Flow FiO2 Mean Ox Delivery Rate 09/11 1919 98.2 106 17 170/77 97 Room Air 09/11 1728 98.2 101 18 180/100 96 Room Air 09/11 1505 97.5 18 172/82 97 09/11 1124 95 Room Air 09/11 1115 97.6 107 18 156/81 94 Physical Exam General Appearance Alert, Oriented X3, Cooperative, No Acute Distress Skin bilateral LE redness and swelling, pulses not felt Skin Temp/Moisture Exam: Warm/Dry Sepsis Skin Exam (color): Normal for Ethnicity HEENT Atraumatic, EOMI, Mucous Membr. moist/pink Cardiovascular Regular Rate, Normal S1, Normal S2 Lungs decreased breathing sounds bilaterally, no crackles were appreciated Abdomen Normal Bowel Sounds, Soft, No Tenderness Neurological Normal Speech Extremities bilateral +3leg swelling and redness, pulses couldn't be discharged Last 24 Hrs of Labs/Luis: Laboratory Tests 09/11/17 2004: Lactic Acid 2.9 H 09/11/17 1811: Troponin I 0.12 *H 09/11/17 1440: Lactic Acid 2.3 H 09/11/17 1220: Anion Gap 13, Estimated GFR 42 L, BUN/Creatinine Ratio 30.8 H, Glucose 157 H, Lactic Acid 2.1, Calcium 9.6, Total Bilirubin 0.4, AST 26, ALT 48, Alkaline Phosphatase 91, Troponin I 0.13 *H, [id number] Pept 2970 H, Total Protein 6.4, Albumin 3.7, Globulin 2.7, Albumin/Globulin Ratio 1.4, PT 10.0, INR 0.95, APTT 29, CBC w Diff NO MAN DIFF REQ, RBC 4.66, MCV 88.6, MCH 29.3, MCHC 33.0, RDW 15.9 H, MPV 7.0 L, Gran % 84.4 H, Lymphocytes % 11.5 L, Monocytes % 3.6, Eosinophils % 0.4, Basophils % 0.1, Absolute Granulocytes 11.1 H, Absolute Lymphocytes 1.5, Absolute Monocytes 0.5, Absolute Eosinophils 0.1, Absolute Basophils 0 09/11/17 1213: Urinalysis LIGHT H, Urine Color YEL, Urine Clarity HAZY H, Urine pH 6.5, Ur Specific Dike 1.025, Urine Protein 100 H, Urine Ketones NEG, Urine Nitrite NEG, Urine Bilirubin NEG, Urine Urobilinogen 0.2, Ur Leukocyte Esterase MOD H, Ur Microscopic SEDIMENT EXAMINED, Urine RBC 5-10 H, Urine WBC 50-75 H, Ur Epithelial Cells MOD H, Urine Bacteria FEW H, Hyaline Casts 1-3 H, Granular Casts RARE H, Urine Mucus RARE, Urine Hemoglobin TRACE-INTACT, Urine Glucose 100 H Microbiology 09/11 1440 BLOOD: Blood Culture - RECD 09/11 1436 NASOPHARYN: Influenza Virus A & B Rapid Smear - ORD 09/11 1220 BLOOD: Blood Culture - RECD 09/11 1213 URINE ROUT: Urine Culture - RECD Patient was admitted to telemetry floor for management of following conditions: Bilateral acute leg swelling and pain DVT ruled out, started the patient on IV Lasix initially and IV antibiotic ceftriaxone for possible cellulitis. Leukocytosis is that, the gastroduodenal resolved, IV Lasix was changed to by mouth and IV antibiotics was just one Augmentin for 7 days of antibiotic therapy. vascular surgery also suggested bilateral Frank bandage gentle compression Patient should follow-up with [facility] and vascular surgery after discharge for leg swelling. Per physical therapy patient will go to [facility]. Mildly increased troponin and tachycardia During the hospitalization patient an episode of tachycardia to 150 with mild increased troponin most likely demand ischemia, per cardiology patient was initiated on IV heparin but stopped after 48 hours. Metoprolol, statin, aspirin was started for the patient, he was in a slightly with d-dimer less than 200. She should follow-up in an outpatient setting for further risk stratification and possible stress test with her carding supervisor. Allergies: Coded Allergies: duloxetine (From CYMBALTA) (SEVERE SCHERIBER, DIZZINESS 05/29/17) pregabalin (From LYRICA) (WEAK/DIZZY 11/04/16) Pertinent Lab Results: PATIENT: BRIANDA DUFFY PRESENT AGE: 86 PATIENT ACCOUNT NO: [id number] : 29 LOCATION: [facility] ORDERING PHYSICIAN: Rhina JEAN-BAPTISTE SERVICE DATE: 09/11/17-1348 EXAM TYPE: RAD - XRY-CHEST XRAY, TWO VIEWS EXAMINATION: XR CHEST CLINICAL INFORMATION: Pedal edema. COMPARISON: Portable chest 05/30/2017. TECHNIQUE: 2 views of the chest were obtained. FINDINGS: Both lungs are well expanded and clear of acute process. Heart size is enlarged. Pulmonary vascularity is normal. There is severe T8 compression fracture with acute kyphosis at this level. IMPRESSION: No acute pulmonary process. Severe T8 compression fracture resulting in acute kyphosis at this level. Similar findings probably were present on the previous chest AP exam 05/30/2017. If patient has acute pain in this region an MRI or bone scan can be performed. DICTATED BY: Gui Mcclellan MD DATE/TIME DICTATED:09/11/171430 PARTS SALES MANAGER:SHYANNE DATE/TIME TRANSCRIBED:09/11/171430 CONFIDENTIAL, DO NOT COPY WITHOUT APPROPRIATE AUTHORIZATION. <Electronically signed in Other Vendor System> SIGNED BY: Gui Mcclellan MD 09/11/171716 PATIENT: BRIANDA DUFFY PRESENT AGE: 86 PATIENT ACCOUNT NO: [id number] : 29 LOCATION: [facility] ORDERING PHYSICIAN: John Martinez MD SERVICE DATE: 09/12/17- EXAM TYPE: US - US-EXT BILAT VENOUS DOPPLER EXAMINATION: US TRIPLEX OF LOWER EXTREMITIES, BILATERAL CLINICAL INFORMATION: Bilateral lower extremity pain, tenderness, edema, swelling and skin changes. COMPARISON: Prior venous ultrasound examinations, most recently 05/30/2017. TECHNIQUE: Color-flow triplex imaging with spectral analysis and compression Doppler were performed on the lower extremities. FINDINGS: Respiratory variation, normal compression and augmented flow are noted throughout the lower extremities. The visualized common femoral vein, proximal greater saphenous vein, femoral vein, profunda femoral vein, popliteal vein and visualized mid calf venous segments show no evidence of deep venous thrombosis. There is no Soriano's cyst. IMPRESSION: Normal triplex scan without evidence of deep venous thrombosis involving the bilateral lower extremities. DICTATED BY: Ashok Chacko MD DATE/TIME DICTATED:09/12/171312 PARTS SALES MANAGER:SHYANNE DATE/TIME TRANSCRIBED:09/12/171312 CONFIDENTIAL, DO NOT COPY WITHOUT APPROPRIATE AUTHORIZATION. <Electronically signed in Other Vendor System> SIGNED BY: Ashok Chacko MD 09/12/171317 Disposition Summary Disposition Principal Diagnosis: cellulitis Additional Diagnosis: chronic leg swelling Discharge Disposition: SNF Discharge Instructions General Discharge Information Code Status: Do Not Resucitate/Intubat Patient's Diet: heart healthy Patient's Activity: as tolerated Follow-Up Instructions/Appts: -Please follow-up with your primary care provider within 7 days after discharge. -Please follow-up with your carding supervisor 7 days after discharge -Please follow-up with [facility] for leg swelling -Please follow-up with vascular surgery 7 days after discharge -We have made changes to your home medications, please read the instructions carefully. -Please come back to the hospital if your symptoms got worse. Medications at Discharge Discharge Medications: Continue taking these medications: Tramadol HCl (Tramadol HCl) 50 MG TABLET 1 Tablet ORAL Q6H as needed for PAIN Qty = 120 Comments: Last Taken: 09/11/17 Time: 12PM Furosemide (Furosemide) 40 MG TABLET 1 Tablet ORAL DAILY Qty = 90 Comments: Last Taken: 09/16/17 Time: 9AM Multivitamin (Daily Multiple Vitamin) 1 EACH TABLET 1 Tablet ORAL DAILY Comments: NOT GIVEN IN HOSPITAL Vit A/Vit C/Vit E/Zinc/Copper (Preservision Areds Tablet) 7,160-113 TABLET 1 Tablet ORAL TWICE DAILY Comments: NOT GIVEN IN HOSPITAL Spironolactone (Spironolactone) 25 MG TABLET 1 Tablet ORAL DAILY Qty = 30 Comments: Last Taken: 09/16/17 Time: 9AM Prednisone (Prednisone) 5 MG TABLET 1 Tablet ORAL THREE TIMES DAILY Qty = 90 Comments: Last Taken: 09/16/17 Time: 9 AM Ammonium Lactate (Ammonium Lactate) 12 % CREAM..G. 1 Application On the skin As Directed Qty = 140 Comments: NOT GIVEN IN HOSPITAL Omeprazole (Omeprazole) 20 MG CAPSULE.DR 1 Capsule ORAL DAILY Qty = 30 Comments: Last Taken: 09/16/17 Time: 9AM Potassium Chloride (Potassium Chloride) 20 MEQ TAB.ER.PRT 1 Tablet ORAL TWICE DAILY Comments: Last Taken: 09/16/17 Time: 9AM Start taking the following new medications: Amoxicillin/Clavulanate Potass (Amox-Clav 875-125 MG Tablet) 875 MG-125 MG TABLET 875 Milligram ORAL EVERY 12 HOURS Qty = 8 No Refills Comments: Last Taken: 09/16/17 Time: 9AM Atorvastatin Calcium (Atorvastatin Calcium) 40 MG TABLET 40 Milligram ORAL 5 PM Qty = 30 No Refills Comments: Last Taken: 09/15/17 Time: 4PM Metoprolol Tartrate (Metoprolol Tartrate) 25 MG TABLET 12.5 Milligram ORAL TWICE DAILY Qty = 60 No Refills Comments: Last Taken: 09/16/17 Time: 9AM Aspirin (Aspirin*) 81 MG TAB.CHEW 81 Milligram ORAL DAILY Qty = 30 No Refills Comments: Last Taken: 09/16/17 Time: 9AM Copies To: Lacy LANGE,Chase; Edward LANGE,[place]; Margret LANGE,Velasquez
[2017-09-15 14:17] VITALS: BP 140/80
[2017-09-15 14:49] VITALS: BP 140/80
[2017-09-15] MEDS ORDERED: AMOX-CLAV 875-1 EACH PO ×2 (15:15→15:16)
[2017-09-15 22:09] VITALS: BP 130/70
[2017-09-16 06:39] VITALS: BP 172/58
--- NOTE | 2017-09-16 07:34 | PN- Housestaff ---
Subjective Follow-up For: Bilateral leg cellulitis CK D Increased troponin Tele-Events Since Last Visit: off tele Subjective: Patient visited today, was lying in bed comfortably in no acute distress, was alert and oriented. No fever or chills, no chest pain, no other events. Patient was planned to be discharged yesterday but was cancelled due to placement/insurance issues. We'll continue discharge planning today. Review of Systems Constitutional: Reports: see HPI. Objective Last 24 Hrs of Vital Signs/I&O Vital Signs Date Time Temp Pulse Resp B/P B/P Pulse O2 O2 Flow FiO2 Mean Ox Delivery Rate 09/16 0639 98.1 64 18 172/58 97 Room Air 09/15 2209 98.2 75 20 130/70 97 09/15 1449 97.6 74 18 140/80 02 1417 97.6 74 18 140/80 98 Room Air 09/15 1032 74 146/80 09/15 1031 146/80 09/15 0957 Room Air Intake & Output 09/16 1600 09/16 0800 09/16 0000 Intake Total 200 640 Output Total 500 975 Balance -300 -335 Intake, Oral 200 640 Number 1 Bowel Movements Output, Urine 500 975 Physical Exam General Appearance: Alert, Oriented X3, Cooperative, No Acute Distress Skin: bilateral lower leg skin changes, improved Skin Temp/Moisture Exam: Warm/Dry Sepsis Skin Exam (color): Normal for Ethnicity HEENT: Atraumatic, EOMI, Mucous Membr. moist/pink Cardiovascular: Regular Rate, Normal S1, Normal S2 Lungs: Clear to Auscultation Abdomen: Soft, No Tenderness Extremities: Improved, dressing in place Current Medications: Current Medications Sig/Michael Start time Last Medication Dose Route Stop Time Status Admin Acetaminophen 325 MG Q6P PRN 09/11 2030 AC PO Amoxicillin/ 875 MG Q12 09/15 1000 AC 09/15 Clavulanate Potassium PO 2128 Aspirin 81 MG DAILY 09/12 1823 AC 09/15 PO 1031 Atorvastatin Calcium 40 MG 1700 / 1700 AC 09/15 PO 1540 Ceftriaxone Sodium 1,000 MG DAILY@1530 02/03 1530 DC 02/ IV 1541 Furosemide 40 MG DAILY 09/14 1500 AC 09/15 PO 1032 Metoprolol Tartrate 12.5 MG BID 09/12 2200 AC 09/15 PO 2126 Omeprazole 20 MG DAILY 09/12 1000 AC 09/15 PO 1033 Oxycodone HCl 5 MG Q6 PRN 09/11 2029 AC 09/16 PO 0438 Potassium Chloride 20 MEQ BID 09/11 2199 AC 09/15 PO 212 Prednisone 5 MG TID 09/11 2199 AC 09/15 PO 212 Spironolactone 25 MG DAILY 09/11 2008 AC 09/15 PO 1031 Tramadol HCl 50 MG Q6 PRN 09/11 2029 AC 09/13 PO 2248 Assessment/Plan Assessment: Patient is 86-year-old F prented with bilateral leg pain and severe weakness PMH: hypertension, chronic venous insufficiency, bypass surgery of lower extremity, recurrent cellulitis, CKD, dermatitis, ? Acquired factor VIII deficiensy. Imagings at admission: No acute pulmonary process. Severe T8 compression fracture resulting in acute kyphosis at this level. Similar findings probably were present on the previous chest AP exam 05/30/2017. If patient has acute pain in this region an MRI or bone scan can be performed. Patient was admitted to telemetry floor for management of following conditions: Bilateral acute leg swelling and pain DVT ruled out Echo: Normal triplex scan without evidence of deep venous thrombosis involving the bilateral lower extremities. We continued IV Lasix 60 mg today. Initial antibiotics IV were started, with improvement of the condition was changed to by mouth antibiotics before discharge. Increased troponin with tacyhcaardia most likely type 2 ND. Serial Tn and EKG were followed and trops trended down. ACS was ruled out. IV heparin was initially administered. Statin, metoprolol were administered per cardilogy. With stabilization of condition patient was discharged with recommendation to follow in outpatient with cardiology. Drew lactic acid: normal AG, was monitored until resolved. Active UA: patient did not reported any symptoms. IV ceftriaxone administered. Urine culture was followed that remained negative. Leukocytosis Was likely from infection, UTI, can also be related to prednisone, resolved and we continued to monitor. DNR/DNI DVT ppx: Pharmacological, no ALPS diet heart healthy We will contninue discharge planning today: Patient was discharged with recommendations below: -Please follow-up with your primary care provider within 7 days after discharge. -Please follow-up with your fishing rod marker 7 days after discharge -Please follow-up with [facility] for leg swelling -Please follow-up with vascular surgery 7 years after discharge -We have made changes to your home medications, please read the instructions carefully. -Please come back to the hospital if your symptoms got worse. Problem List: 1. NSTEMI (non-ST elevated myocardial infarction) 2. Cellulitis Pain Ratin Pain Location: None imoroved ankle pain Pain Goal: Pain 4 or less Pain Plan: Conitnbrant current plan Tomorrow's Labs & Rationales: Shirley BEP
[2017-09-16 10:31] VITALS: BP 170/80
--- NOTE | 2017-09-16 12:59 | PN- Att Addend ---
Attending Addendum Attending Brief Note Patient ready to leave to short-term rehabilitation the [facility]. Still has some pain in the legs. Vascular surgeon check the legs today he has some open areas are painful commendations were given for the kind of treatment and special compression stockings. Otherwise vital signs are stable and no fever and no other changes patient will finish treatment for her leg cellulitis, get some physical therapy. See the discharge summary and C MR and W 10. Intake & Output 09/16 Intake Total 422 892 0681 260 1036.85 335 Output Total 512 246 8413 750 950 450 Balance -600 -335 -885 -490 86.85 -115 Intake, IV 20 236.85 135 Intake, Oral 919 917 6607 240 800 200 Number 1 Bowel Movements Output, Urine 062 452 3992 750 950 450 Patient 169 lb Weight Weight Bed scale Measurement Method Laboratory Tests 09/16/17 1003: CBC w Diff Cancelled, WBC Cancelled, RBC Cancelled, Hgb Cancelled, Hct Cancelled , MCV Cancelled, MCH Cancelled, MCHC Cancelled, RDW Cancelled, Plt Count Cancelled, MPV Cancelled 09/16/17 0810: APTT Cancelled 09/15/17 0600: Sodium Cancelled, Potassium Cancelled, Chloride Cancelled, Carbon Dioxide Cancelled, Anion Gap Cancelled, BUN Cancelled, Creatinine Cancelled, BUN/ Creatinine Ratio Cancelled, APTT Cancelled 09/14/17 1900: PT Cancelled, INR Cancelled 09/14/17 0700: Anion Gap 7, Estimated GFR 59 L, BUN/Creatinine Ratio 26.7 H, APTT 66 H, CBC w Diff MAN DIFF ORDERED, RBC 3.58 L, MCV 89.8, MCH 29.3, MCHC 32.6 L, RDW 16.1 H, MPV 7.9, Gran % 86.2 H, Lymphocytes % 8.9 L, Monocytes % 4.5, Eosinophils % 0.2, Basophils % 0.2, Absolute Granulocytes 8.3 H, Segmented Neutrophils 83 H, Band Neutrophils 3, Absolute Lymphocytes 0.9 L, Lymphocytes 10 L, Monocytes 2, Absolute Monocytes 0.4, Absolute Eosinophils 0, Absolute Basophils 0, Myelocytes 2 H, Platelet Estimate ADEQUATE, Normocytic RBCs VERIFIED, Normochromic RBCs VERIFIED 09/13/171953: APTT 62 H Vital Signs Date Time Temp Pulse Resp B/P B/P Pulse O2 O2 Flow FiO2 Mean Ox Delivery Rate 09/16 1031 88 170/80 09/16 0800 95 Room Air 09/16 0639 98.1 64 18 172/58 97 Room Air 09/15 2209 98.2 75 20 130/70 97 09/15 1449 97.6 74 18 140/80 09/15 1417 97.6 74 18 140/80 98 Room Air
== END 2017-09-16 12:15 | DRG 602 ==
LOC: ERH 11:06 → 1NO 16:13 → ERHI 16:13 → ENRESERV 19:21 → ENTRNSPT 20:16 → EDTRNSPTSTS 20:29 → EDTRNSPT 20:29 → 1NO 20:39 → CMPTRNSPT 20:48 → ENPENDDIS 09-16 10:27 → 1NO 09-16 12:15
PROVIDERS: Dermatology; Internal Medicine; Physician Assistant; Radiology Vascular & Interventional Radiology; Student in an Organized Health Care Education/Training Program
DX: L03.116 Cellulitis of left lower limb (principal); D66 Hereditary factor VIII deficiency; I24.8 Other forms of acute ischemic heart disease; D64.9 Anemia, unspecified; N39.0 Urinary tract infection, site not specified; I34.0 Nonrheumatic mitral (valve) insufficiency; I87.2 Venous insufficiency (chronic) (peripheral); L03.115 Cellulitis of right lower limb; I12.9 Hypertensive chronic kidney disease with stage 1 through stage 4 chronic kidney disease, or unspecified chronic kidney disease; N18.9 Chronic kidney disease, unspecified; I73.9 Peripheral vascular disease, unspecified; I36.1 Nonrheumatic tricuspid (valve) insufficiency; Z66 Do not resuscitate
CPT/HCPCS: 1NSP; 36415; 71046; 81001; 82436; 87040; 87086; 87804; 87804-59; 93005; 93010; 93970; 96374; 96375; 97110-GO; 97161-GP; 97530-GO; 99291; J0696; J1644; J1940; J3490; J7060; J7512

== ENCOUNTER 2017-10-03 10:12 | Inpatient (IN) | payer OTHER ==
[~2017-10-03] VITALS: Ht 160 cm; Wt 73.2 kg
[~2017-10-03 10:12] MED LIST changes: +ACYCLOVIR400 M1 PO; +ALDACTONE25 MG PO; +AMMONIUM LACTA385 GM TOP; +AMOX-CLAV 875-1 EACH PO; +ASPIRIN81 M4 PO; +ATORVASTATIN CA40 M1 PO; +PREDNISONE5 M1 PO; +SPIRONOLACTONE25 M1 PO
--- NOTE | 2017-10-03 10:23 | ED GENERAL ADULT ---
History of Present Illness General Chief Complaint: Dyspnea (COPD, CHF, Other) Stated Complaint: BIBA FOR SOB Source: patient, EMS Exam Limitations: clinical condition Vital Signs & Intake/Output Vital Signs & Intake/Output Vital Signs Date Time Temp Pulse Resp B/P B/P Pulse O2 O2 Flow FiO2 Mean Ox Delivery Rate 10/03 1845 94 10/03 1839 BIPAP 100% 10/03 1615 92 10/03 1600 92 BIPAP 100% 10/03 1600 99.0 89 32 88/0 94 BIPAP 100% 10/03 1410 99.9 84 22 78/42 97 BIPAP 100% 10/03 1300 99.7 76 22 121/53 97 BIPAP 100% 10/03 1221 100.6 87 28 109/54 94 BIPAP 100% 10/03 1214 78 10/03 1150 101.9 160 18 109/60 10/03 1150 101.5 87 24 73/49 96 BIPAP 100% 10/03 1101 97 BIPAP 100% 10/03 1057 100.0 10/03 1056 103.3 89 24 109/46 97 BIPAP 100% 10/03 1045 160 24 109/60 BIPAP 100% 10/03 1033 101.9 170 28 125/79 90 BIPAP 10/03 1020 170 88 Allergies Coded Allergies: duloxetine (From CYMBALTA) (SEVERE SCHREIBER, DIZZINESS 05/29/17) pregabalin (From LYRICA) (WEAK/DIZZY 11/04/16) Reconcile Medications Aspirin (Aspirin*) 81 MG TAB.CHEW 81 MG PO DAILY HEART Atorvastatin Calcium 40 MG TABLET 1 TAB PO DAILY HLD (Reported) Furosemide 40 MG TABLET 1 TAB PO DAILY WATER PILL (Reported) Metoprolol Tartrate 25 MG TABLET 12.5 MG PO BID HEART Multivitamin (Daily Multiple Vitamin) 1 EACH TABLET 1 TAB PO DAILY SUPPLEMENT (Reported) Omeprazole 20 MG CAPSULE.DR 1 CAP PO DAILY GI (Reported) Potassium Chloride 20 MEQ TAB.ER.PRT 1 TAB PO BID SUPPLEMENT (Reported) Prednisone 5 MG TABLET 1 TAB PO TID FACTOR VIII (Reported) Spironolactone 25 MG TABLET 1 TAB PO DAILY DIURETIC (Reported) Tramadol HCl 50 MG TABLET 1 TAB PO Q6H PRN PAIN (Reported) Vit A/Vit C/Vit E/Zinc/Copper (Preservision Areds Tablet) 7,160-113 TABLET 1 TAB PO BID SUPPLEMENT (Reported) Triage Nurses Notes Reviewed? yes Onset: Abrupt Duration: hour(s): Timing: recent history HPI: 10/03/17 10:21 AM 87-year-old female presents to the emergency department for severe respiratory distress. According to EMS the patient was coming from home. She was discharged from a rehabilitation center yesterday. She woke up this morning profoundly short of breath. She was hypoxic but responded to BiPAP and nebulizer treatments. She verbalized to the paramedics that under no circumstances does she want to be intubated. On arrival in the emergency department I explained to her that she was in severe respiratory distress and could . The patient does not want intubation. She was placed on a monitor and respiratory therapy is placing the patient on BiPAP. EKG shows irregular rhythm Past History Travel History Traveled to [facility] past 21 day No Medical History Any Pertinent Medical History? 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 No Review of Systems Review of Systems Constitutional: Reports: fever. EENTM: Reports: no symptoms. Respiratory: Reports: short of breath. Cardiovascular: Reports: chest pain. GI: Reports: no symptoms. Genitourinary: Reports: no symptoms. Musculoskeletal: Reports: see HPI. Skin: Reports: no symptoms. Neurological/Psychological: Reports: no symptoms. Hematologic/Endocrine: Reports: no symptoms. Physical Exam Physical Exam General Appearance: awake, anxious, severe distress Head: atraumatic, normal appearance Eyes: Bilateral: normal appearance, PERRL, EOMI. Ears, Nose, Throat: normal pharynx Neck: supple Respiratory: accessory muscle use, crackles, rhonchi, wheezing, rales, respiratory distress Cardiovascular: irregularly irregular Peripheral Pulses: 2+ radial (R), 2+ radial (L) Gastrointestinal: non-tender Back: decreased range of motion Extremities: pedal edema Neurologic/Psych: awake, oriented x 3 Skin: intact, diaphoresis, pallor Core Measures ACS in differential dx? Yes No ASA d/t given CVA/TIA Diagnosis: No Sepsis Present: No Sepsis Focused Exam Completed? No Progress Differential Diagnoses I considered the following diagnoses in my evaluation of the patient: [Pneumonia , acute PA, pulmonary embolism, congestive heart failure, pneumothorax, sepsis] Plan of Care: Orders Procedure Date/time Status MAGNESIUM 10/04 0600 Active CORTISOL AM 10/04 0600 Active CBC WITHOUT DIFFERENTIAL 10/04 0600 Active BASIC ELECTROLYTES PLUS BUN&CR 10/04 0600 Active Nothing by Mouth 10/03 D Active TROPONIN LEVEL 10/03 2200 Active EKG 10/03 2200 Active EKG 10/03 2000 Active LACTIC ACID 10/03 1900 Active RT: Evaluation 10/03 1839 Active Code Status 10/03 1823 Active TROPONIN LEVEL 10/03 1600 Complete LACTIC ACID 10/03 1600 Complete EKG 10/03 1600 Active C.DIFFICILE 10/03 1540 Active Wound Care/Dressing 10/03 1452 Complete Weight 10/03 1452 Active VTE Mechanical Prophylaxis 10/03 1452 Active Vital Signs 10/03 1452 Complete Turn and Reposition 10/03 1452 Active Drains/Tubes 10/03 1452 Complete Teach/Educate 10/03 1452 Active Skin Integrity Protocol 10/03 1452 Active Skin/Pressure Ulcer Assess (Sk 10/03 1452 Active Precautions 10/03 1452 Active Pain Treatment and Response 10/03 1452 Active Nutritional Intake, Monitor 10/03 1452 Active Isolation 10/03 1452 Active CIWA 10/03 1452 Complete Patient Care Conference 10/03 1452 Active Activity/Ambulation 10/03 1452 Active VRE ACTIVE SURVIELLANCE 10/03 1451 Active ACTIVE SURVEILLANCE NARES 10/03 1451 Active CULTURE,URINE 10/03 1407 Active STREP PNEUMO URINARY ANTIGEN 10/03 1407 Active LEGIONELLA URINARY ANTIGEN 10/03 1407 Active LOWER RESPIRATORY CULTURE 10/03 1407 Active URINALYSIS 10/03 1407 Complete TRC EVALUATION (GEN) 10/03 1405 Active OXYGEN SETUP (GEN) 10/03 1405 Active Pathway - chart 10/03 1405 Active House Staff 10/03 1405 Active Code Status 10/03 1405 Complete LACTIC ACID 10/03 1326 Complete RAPID VIRAL INFLUENZA A 10/03 1313 Complete ED Holding Orders 10/03 1203 Active Admit to inpatient 10/03 1203 Active Vital Signs 10/03 1203 Complete Code Status 10/03 1203 Complete Patient Data 10/03 1158 Active Ray, Insertion/Removal/Asses 10/03 1139 Active EKG 10/03 1058 Active EKG 10/03 1057 Active ARTERIAL BLOOD GAS (GEN) 10/03 1043 Active Intake & Output 10/03 1031 Active BLOOD CULTURE 10/03 1026 Active TROPONIN LEVEL 10/03 1026 Complete LACTIC ACID 10/03 1026 Complete D-DIMER 10/03 1026 Complete COMPREHENSIVE METABOLIC PANEL 10/03 1026 Complete CBC WITHOUT DIFFERENTIAL 10/03 1026 Complete EKG 10/03 1013 Active BIPAP 10/03 UNK Complete VTE Mechanical Prophylaxis 10/03 UNK Active Vital Signs 10/03 UNK Active Nursing Misc 10/03 UNK Active Intake & Output 10/03 UNK Complete Activity/Ambulation 10/03 UNK Active ECHOCARDIOGRAM 10/03 UNK Active Current Medications Sig/Michael Start time Last Medication Dose Stop Time Status Admin Atorvastatin Calcium 40 MG DAILY 10/04 1000 AC (Lipitor) Ceftazidime 1,000 MG Q24 10/04 1000 AC (Fortaz) Enoxaparin Sodium 30 MG DAILY 10/04 1000 AC (Lovenox) Multivitamins 1 TAB DAILY 10/04 1000 AC Therapeutic (Theragran-M Vitamins Tabs) Omeprazole 20 MG DAILY 10/04 1000 AC (Prilosec) Spironolactone 25 MG DAILY 10/04 1000 AC (Aldactone) Vancomycin HCl 1,000 MG DAILY 10/04 1000 AC Dextrose/Water 250 ML (D5W) Potassium Chloride 20 MEQ BID 10/03 2200 AC (K-Dur) Sodium Chloride 1,000 ML Q10H 10/03 1845 AC (Normal Saline 0.9%) Lorazepam 1 MG Q4P PRN 10/03 1830 AC (Ativan) Morphine Sulfate 2 MG Q2P PRN 10/03 1830 AC (Morphine) Scopolamine HBr 1 PAT Q72 10/03 1828 AC (Trans Derm Scop) Hydrocortisone 100 MG Q6 10/03 1800 AC 10/03 Sodium Succinate 1532 (Solucortef) Prednisone 15 MG TID 10/03 1600 CAN Acetaminophen 1,000 MG Q6P PRN 10/03 1400 AC (Ofirmev) Aspirin 325 MG ONCE ONE 10/03 1215 CAN (Aspirin) 10/03 1216 Laboratory Tests 10/03/17 1700: Lactic Acid Cancelled 10/03/17 1600: Lactic Acid 9.2 H, Troponin I 1.07 *H 10/03/17 1415: Urine Color YEL, Urine Clarity CLEAR, Urine pH 6.0, Ur Specific [place] 1.025, Urine Protein 100 H, Urine Ketones NEG, Urine Nitrite NEG, Urine Bilirubin NEG, Urine Urobilinogen 0.2, Ur Leukocyte Esterase NEG, Ur Microscopic SEDIMENT EXAMINED, Urine RBC 5-10 H, Urine WBC 1-3 H, Ur Epithelial Cells FEW, Urine Bacteria FEW H, Hyaline Casts 1-3 H, Granular Casts 1-3 H, Urine Hemoglobin TRACE-INTACT, Urine Glucose 500 H 10/03/17 1335: Lactic Acid 6.5 H 10/03/17 1055: pH 7.41, pCO2 21 L, pO2 106 H, HCO3 13 L, ABG O2 Sat (Measured) 97.0, Carboxyhemoglobin 0.1 L, O2 Concentration % 100, Respiration Rate 18, O2 Delivery Method VISION, Vent Mode ST, Expiratory Pressure 6, Inspiratory Pressure 18, Phlebotomy Draw Site LEFT BRACHIAL 10/03/17 1048: Anion Gap 16, Estimated GFR 39 L, BUN/Creatinine Ratio 23.8, Glucose 245 H, Lactic Acid 7.4 H, Calcium 8.7, Total Bilirubin 0.3, AST 23, ALT 32, Alkaline Phosphatase 75, Troponin I 0.63 *H, Total Protein 5.1 L, Albumin 2.9 L, Globulin 2.2, Albumin/Globulin Ratio 1.3, D-Dimer High Sensitivty 3264 H, CBC w Diff NO MAN DIFF REQ, RBC 4.66, MCV 89.0, MCH 29.3, MCHC 32.9 L, RDW 17.3 H, MPV 8.0, Gran % 68.8, Lymphocytes % 28.2, Monocytes % 2.7, Eosinophils % 0.2, Basophils % 0.1, Absolute Granulocytes 2.9, Absolute Lymphocytes 1.2, Absolute Monocytes 0.1, Absolute Eosinophils 0, Absolute Basophils 0 Microbiology 10/03 1540 STOOL: Clostridium difficile Toxin A & B - COLB 10/03 1515 UPPER RESP: Surveillance Culture - RECD 10/03 1515 GI: Surveillance Culture - RECD 10/03 1419 URINE ROUT: Legionella Antigen - RES 10/03 1419 URINE ROUT: Streptococcus pneumoniae Antigen (M - RES 10/03 1419 URINE ROUT: Urine Culture - RES 10/03 1407 LOWER RESP: Respiratory Culture - COLB 10/03 1407 LOWER RESP: Gram Stain - COLB 10/03 1359 NASOPHARYN: Influenza Virus A & B Rapid Smear - COMP 10/03 1050 BLOOD: Blood Culture - RECD 10/03 1040 BLOOD: Blood Culture - RECD Initial ED EKG: nonspecific ST T wave chg (rapid afib) Departure Departure Disposition: STILL A PATIENT Condition: Stable Clinical Impression Primary Impression: Sepsis Secondary Impressions: NSTEMI (non-ST elevated myocardial infarction), Pleural effusion, Pneumonia, Rapid atrial fibrillation Referrals: Velasquez Oswald MD (PCP/Family) Departure Forms: Customer Survey General Discharge Information Admission Note Spoke With: Velasquez Oswald MD Documentation of Exam: Documentation of any treatments & extenuating circumstances including Concerns Regarding Discharge (functional status, medication knowledge or non-compliance, living conditions, etc.) that warrant an admission rather than observation: [The patient needs admission to the ICU for IV antibiotics, cardiology consultation, IV fluids, ICU level care] The patient was treated with IV fluids, serial lactic acid levels, pancultures, IV antibiotics. She was seen and evaluated by Dr. Farnsworth. The A. fib broke with 5 mg of Lopressor. She was admitted to the ICU for further care. ct IMPRESSION: 1. Limited evaluation of the pulmonary arteries to bilateral lower lobes , as detailed above. Otherwise, no evidence of filling defects to indicate a definite pulmonary embolus. 2. Large confluent consolidation in the right lower lobe, and [id number] confluent consolidation in the left lower lobe. Additional areas of patchy airspace opacities. Differential considerations include infectious etiology/pneumonia, inflammatory process. Recommend followup CT to ensure resolution, and exclude other etiologies. 3. Small right pleural effusion. 4. Severe compression fracture of the T8 vertebral body, of indeterminate age. VTE: Negative DICTATED BY: Mata Kirby MD DATE/TIME DICTATED:10/03/171510 MASSAGE OPERATOR:SHYANNE DATE/TIME TRANSCRIBED:10/03/171510 CONFIDENTIAL, DO NOT COPY WITHOUT APPROPRIATE AUTHORIZATION. Critical Care Note Critical Care Note Critical Care Time: 30-74 min
[2017-10-03 11:00] LABS: ABSOLUTE BASOPHIL COUNT 0 /CUMM (0.0-0.2); ABSOLUTE EOSINOPHIL COUNT 0 /CUMM (0.0-0.7); ABSOLUTE GRANULOCYTE CT 2.9 /CUMM (1.4-6.5); ABSOLUTE LYMPH COUNT 1.2 /CUMM (1.2-3.4); ABSOLUTE MONOCYTE COUNT 0.1 /CUMM (0.10-0.60); BASOPHIL % 0.1 % (0.0-2.0); EOSINOPHIL % 0.2 % (0-5); GRANULOCYTE % 68.8 % (42.2-75.2); HEMATOCRIT 41.5 % (37-47); MEAN CORPUSCULAR HGB 29.3 PG (27.0-31.0); MEAN CORPUSCULAR HGB CONC 32.9 G/DL (33.0-37.0); PLATELET COUNT 214 /CUMM (130-400); RBC DISTRIBUTION WIDTH 17.3 % (11.5-14.5); RED BLOOD CELL CT 4.66 /CUMM (4.20-5.40); WHITE BLOOD CELL COUNT 4.2 /CUMM (4.8-10.8)
--- NOTE | 2017-10-03 11:07 | RADIOLOGY REPORT ---
EXAMINATION: XR PORTABLE CHEST CLINICAL INFORMATION: SOB. COMPARISON: Chest 09/11/2017. TECHNIQUE: Portable frontal view of the chest was obtained. FINDINGS: There is cardiomegaly with normal pulmonary vascularity. The lungs are expanded with dense right lower lobe consolidation consistent with infiltrate. No gross bony abnormality seen. IMPRESSION: Right lower lobe pneumonic consolidation. Cardiomegaly without congestion.
[2017-10-03] MEDS ORDERED: ATORVASTATIN CA40 M1 PO (12:56)
--- NOTE | 2017-10-03 13:46 | History & Physical ---
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 Patient was recently admitted to [facility] from 09/11/17-09/16/17 for evaluation of lower extremity swelling and treatment for cellulits. Patient was discharged to short term rehabilitation on oral antibiotics. Patient was discharged to home from rehab yesterday and returned home around 3pm in her normal state of health. Patient awoke this morning feeling weak and nauseated and proceeded to have multiple loose brown/watery bowel movements. She admitted to shortness of breath on exertion. Initially according to the patients daughter Vicky the patient declined to call 911 or go to the hospital. EMS arrived and transported the patient to the [facility] for evaluation. Presently patient is awake and alert and followed commands. She reports persistence of these symptoms with new severe back pain and is requesting "something" for the pain. She reports eating/drinking well with normal bowel/ bladder habits recently and denies any new mediations or sick contacts. Allergies/Medications Allergies: Coded Allergies: duloxetine (From CYMBALTA) (SEVERE SCHREIBER, DIZZINESS 05/29/17) pregabalin (From LYRICA) (WEAK/DIZZY 11/04/16) Home Med list Aspirin (Aspirin*) 81 MG TAB.CHEW 81 MG PO DAILY HEART Atorvastatin Calcium 40 MG TABLET 1 TAB PO DAILY HLD (Reported) Furosemide 40 MG TABLET 1 TAB PO DAILY WATER PILL (Reported) Metoprolol Tartrate 25 MG TABLET 12.5 MG PO BID HEART Multivitamin (Daily Multiple Vitamin) 1 EACH TABLET 1 TAB PO DAILY SUPPLEMENT (Reported) Omeprazole 20 MG CAPSULE.DR 1 CAP PO DAILY GI (Reported) Potassium Chloride 20 MEQ TAB.ER.PRT 1 TAB PO BID SUPPLEMENT (Reported) Prednisone 5 MG TABLET 1 TAB PO TID FACTOR VIII (Reported) Spironolactone 25 MG TABLET 1 TAB PO DAILY DIURETIC (Reported) Tramadol HCl 50 MG TABLET 1 TAB PO Q6H PRN PAIN (Reported) Vit A/Vit C/Vit E/Zinc/Copper (Preservision Areds Tablet) 7,160-113 TABLET 1 TAB PO BID SUPPLEMENT (Reported) Past History Travel History Traveled to [place] past 21 day No Medical History Neurological: NONE EENT: glaucoma, macular degeneration Cardiovascular: chronic venous insuff, hypertension Respiratory: NONE Gastrointestinal: NONE Hepatic: NONE Renal: NONE Musculoskeletal: NONE Psychiatric: NONE Endocrine: NONE Blood Disorders: NONE Cancer(s): NONE PEST CONTROL SERVICE REPRESENTATIVE/Reproductive: NONE History of MRSA: No History of VRE: No History of CDIFF: No Surgical History Surgical History: N LEG BYPASS X4 (venous stripping) Past Family/Social History Psychosocial History Who Do You Live With? self Services at Home: None ETOH Use: 6 Illicit Drug Use: UTD Functional Ability Ambulation: walker Review of Systems Review of Systems Constitutional: Reports: see HPI. Exam & Diagnostic Data Last 24 Hrs of Vital Signs/I&O Vital Signs Date Time Temp Pulse Resp B/P B/P Pulse O2 O2 Flow FiO2 Mean Ox Delivery Rate 10/03 1410 99.9 84 22 78/42 97 BIPAP 100% 10/03 1300 99.7 76 22 121/53 97 BIPAP 100% 10/03 1221 100.6 87 28 109/54 94 BIPAP 100% 10/03 1214 78 10/03 1150 101.9 160 18 109/60 10/03 1150 101.5 87 24 73/49 96 BIPAP 100% 10/03 1101 97 BIPAP 100% 10/03 1057 100.0 10/03 1056 103.3 89 24 109/46 97 BIPAP 100% 10/03 1045 160 24 109/60 BIPAP 100% 10/03 1033 101.9 170 28 125/79 90 BIPAP 10/03 1020 170 88 Intake & Output 10/03 1600 10/03 0800 10/03 0000 Intake Total 1000 Output Total 400 Balance 600 Intake, IV 1000 Output, Urine 400 Patient 77.111 kg Weight Weight Estimated Measurement Method Physical Exam General Appearance Alert, Oriented X3, Cooperative, Severe Distress Skin No Rashes, No Breakdown, No Significant Lesion Skin Temp/Moisture Exam: Cool/Dry Sepsis Skin Exam (color): Cyanotic, Pale HEENT Atraumatic, PERRLA, EOMI, Dry oral mucosa Neck Supple, No JVD Cardiovascular Regular Rate, Normal S1, Normal S2, No Murmurs Lungs Diminish RLL airflow with crackles up to mid chest Abdomen Normal Bowel Sounds, Soft, No Tenderness, No Hepatospenomegaly, No Masses Neurological Normal Speech, Strength at 5/5 X4 Ext, Normal Tone, Sensation Intact, Cranial Nerves 3-12 NL Extremities No Clubbing, Normal Pulses, Peripheral cyanosis, 2+ bilateral lower extremity edema Vascular Normal Pulses, Pulses Symmetrical Sepsis Peripheral Pulse Location: Radial Sepsis Peripheral Pulse Exam: Weak Sepsis Cap Refill Exam: >2 sec Last 24 Hrs of Labs/Luis: Laboratory Tests 10/03/17 1415: Urine Color YEL, Urine Clarity CLEAR, Urine pH 6.0, Ur Specific Raymond 1.025, Urine Protein 100 H, Urine Ketones NEG, Urine Nitrite NEG, Urine Bilirubin NEG, Urine Urobilinogen 0.2, Ur Leukocyte Esterase NEG, Ur Microscopic SEDIMENT EXAMINED, Urine RBC 5-10 H, Urine WBC 1-3 H, Ur Epithelial Cells FEW, Urine Bacteria FEW H, Hyaline Casts 1-3 H, Granular Casts 1-3 H, Urine Hemoglobin TRACE-INTACT, Urine Glucose 500 H 10/03/17 1335: Lactic Acid 6.5 H 10/03/17 1055: pH 7.41, pCO2 21 L, pO2 106 H, HCO3 13 L, ABG O2 Sat (Measured) 97.0, Carboxyhemoglobin 0.1 L, O2 Concentration % 100, Respiration Rate 18, O2 Delivery Method VISION, Vent Mode ST, Expiratory Pressure 6, Inspiratory Pressure 18, Phlebotomy Draw Site LEFT BRACHIAL 10/03/17 1048: Anion Gap 16, Estimated GFR 39 L, BUN/Creatinine Ratio 23.8, Glucose 245 H, Lactic Acid 7.4 H, Calcium 8.7, Total Bilirubin 0.3, AST 23, ALT 32, Alkaline Phosphatase 75, Troponin I 0.63 *H, Total Protein 5.1 L, Albumin 2.9 L, Globulin 2.2, Albumin/Globulin Ratio 1.3, D-Dimer High Sensitivty 3264 H, CBC w Diff NO MAN DIFF REQ, RBC 4.66, MCV 89.0, MCH 29.3, MCHC 32.9 L, RDW 17.3 H, MPV 8.0, Gran % 68.8, Lymphocytes % 28.2, Monocytes % 2.7, Eosinophils % 0.2, Basophils % 0.1, Absolute Granulocytes 2.9, Absolute Lymphocytes 1.2, Absolute Monocytes 0.1, Absolute Eosinophils 0, Absolute Basophils 0 Microbiology 10/03 1451 UPPER RESP: Surveillance Culture - ORD 10/03 1451 GI: Surveillance Culture - ORD 10/03 1407 URINE ROUT: Legionella Antigen - ORD 10/03 1407 URINE ROUT: Streptococcus pneumoniae Antigen (M - ORD 10/03 1407 URINE ROUT: Urine Culture - ORD 10/03 1407 LOWER RESP: Respiratory Culture - ORD 10/03 1407 LOWER RESP: Gram Stain - ORD 10/03 1359 NASOPHARYN: Influenza Virus A & B Rapid Smear - COMP 10/03 1050 BLOOD: Blood Culture - RECD 10/03 1040 BLOOD: Blood Culture - RECD Diagnostic Data EKG Results 10/03/17 1018: Afib with RVR 10/03/17 1101: NSR, poor R-wave progression, TWI V1-V3 CXR Results IMPRESSION: Right lower lobe pneumonic consolidation. Cardiomegaly without congestion. Assessment/Plan Assessment: 87 year old woman with multiple medical problems significant for Factor VIII deficiency on chronic prednisonse and recent hospitalization for cellulitis s/p antibiotics and short term rehabilitations seen for evaluation of nausea, diarrhea, weakness and shortness of breath. Patient was found to have sepsis shock with right lower lobe pneumonia requiring ICU admission. Upon initial evaluation patient is awake and alert and oriented to person, place and time. She is adamant about being a do not resuscitate / do not intubate. She declined aggressive measures including central lines and vasopressors. Patient is continued on broad spectrum antibiotics for concern of HCAP. Her blood pressure was stable until she was transferred upstairs for which solucortef was started due to her prednisone dependence. Family meeting was held with her Daughter Vicky and Granddaughter Ginger who are in agreement with their loved ones wishes. They are aware of how gravely ill the patient is. Problem List -[facility] Acquired Pneumonia -Septic Shock with elevated lactic acid -Atrial fibrillation with rapid ventricular response -Acute hypoxic respiratory failure -Acute kidney injury, probably prerenal -Elevated troponin, likely demand ischemia -Diarrhea -Factor VIII deficiency, on chronic prednisone -Glaucoma -CKD -Dermatitis Plan -ICU -Telemetry monitoring -TRC with nebs PRN -BiPAP: 18/, FiO2 %100 -Ray catheter -NS @ 75 mL/hr -Vancomycin 1 g IV Daily -Ceftazidime 1 g IV Q8H -Solucortef 100 mg IV Q6H -Consider amiodarone if she converts back to atrial fibrillation -Hold prednisone while solucortef is running -Hold metoprolol for hypotension, restart as tolerated -Hold lasix for sepsis, restart as needed -Continue home meds: aspirin, atorvastatin, multivitamin, omeprazole, potassium, aldactone -Cardiology consult for troponins and rapid atrial fibrillation -Panculture, blood/urine/sputum -Check strep/legionella antigen -Check rapid flu -Check AM cortisol -Check C. diff toxin -Trend lactic until normal -Trend troponin / EKG until peak, or three negative sets -Obtain echocardiogram -Pain control with acetaminophen -NPO while on BiPAP -DVT PPx with lovenox -DNR/DNI, no central line / pressors -Contact her daughter Vicky with any updates As Ranked By This Provider Problem List: 1. Sepsis 2. Pneumonia Core Measures/Misc (04/26) Acute Coronary Syndrome ACS Diagnosis: No Congestive Heart Failure Congestive Heart Failure Diagnosis No Cerebrovascular Accident CVA/TIA Diagnosis: No VTE (View Protocol) VTE Risk Factors Age>40 No Mechanical VTE Prophylaxis d/t N/A MechProphylax Ordered No VTE Pharm Prophylaxis d/t NA PharmProphylax ordered Sepsis (View protocol) Sepsis Present: Yes Inpatient Sepsis Exam Sepsis Cardiac Exam: Tachycardia Sepsis Resp Exam: Consolidation / Crackles Sepsis Cap Refill Exam: >2 sec Sepsis Peripheral Pulse Exam: Weak Sepsis Peripheral Pulse Location: Radial Sepsis Skin Color Exam: Cyanotic, Pale Skin Temp/Moisture Exam: Cool/Dry
--- NOTE | 2017-10-03 15:42 | CT SCAN REPORT ---
EXAMINATION: CT ANGIOGRAM CHEST WITHOUT AND WITH CONTRAST (CT PULMONARY ANGIOGRAM FOR PE) CLINICAL INFORMATION: PE. SOB. Elevated D-dimer. COMPARISON: X-ray 10/03/2017. CT abdomen 06/08/2017. TECHNIQUE: Prior to contrast administration, noncontrast localization images were obtained. Subsequently, multidetector volumetric imaging was performed from the thoracic inlet to below the diaphragms following the administration of 100 mL Optiray 350 intravenous contrast. No contrast reaction reported. Sagittal, coronal, and MIP oblique sagittal reformatted images were obtained on the CT workstation, uploaded to PACS, and reviewed. DLP: 380.54 mGy-cm. FINDINGS: QUALITY OF STUDY/CONTRAST BOLUS: Satisfactory PULMONARY ARTERIES: No evidence of filling defects in the pulmonary arteries, the lobar and segmental vessels of bilateral upper lobes, the lingula and middle lobes. Limited evaluation of the lower lobes secondary to the extensive consolidation, without large pulmonary embolus seen. THORACIC AORTA: No aneurysm or dissection. Scattered atherosclerotic calcification seen. LUNG: Large confluent consolidation is seen in the right lower lobe. No central mass lesion is appreciated, evaluation limited by the extensive consolidation. [id number] confluent consolidation in the medial aspect of the left lower lobe. There is patchy airspace and ground-glass opacities in the left lower lobe. Small right pleural effusion. There are multifocal patchy airspace opacities along the posterior aspect of the right upper lobe adjacent to the effusion. PLEURA: Small right pleural effusion. No pneumothorax. MEDIASTINUM: Normal heart size. No pericardial effusion. No hilar adenopathy. Limited evaluation of the luanne, without gross abnormality seen. No evidence of septal bowing or right heart strain. CHEST WALL/AXILLA: No axillary or internal mammary lymphadenopathy. OSSEOUS STRUCTURES: Marked compression of T8 vertebral body of indeterminate age. Mild anterior wedging of T9 vertebral body. Multilevel moderate disc degenerative change is present. UPPER ABDOMEN: No acute findings. No reflux of contrast into the hepatic veins to suggest elevated right heart pressures. IMPRESSION: 1. Limited evaluation of the pulmonary arteries to bilateral lower lobes , as detailed above. Otherwise, no evidence of filling defects to indicate a definite pulmonary embolus. 2. Large confluent consolidation in the right lower lobe, and tuklb-ih-zvbhoowh confluent consolidation in the left lower lobe. Additional areas of patchy airspace opacities. Differential considerations include infectious etiology/pneumonia, inflammatory process. Recommend followup CT to ensure resolution, and exclude other etiologies. 3. Small right pleural effusion. 4. Severe compression fracture of the T8 vertebral body, of indeterminate age. VTE: Negative
--- NOTE | 2017-10-03 15:59 | RADIOLOGY REPORT ---
EXAMINATION: XR PORTABLE CHEST CLINICAL INFORMATION: Hypoxia, septic shock COMPARISON: Same day CTA chest TECHNIQUE: Portable frontal view of the chest was obtained. FINDINGS: Large right lower lobe consolidation with likely associated parapneumonic effusion. A smaller left lower lobe consolidation is better seen on the earlier CT. The patient's chin obscures evaluation of the right lung apex. Lungs are otherwise appear clear. The cardiac silhouette is top normal. Calcifications are noted at the aortic arch. IMPRESSION: Right lower lobe probable pneumonia with probable small associated parapneumonic effusion. Left lower lobe pneumonia better appreciated on the earlier CT.
[2017-10-03 16:00] VITALS: BP 88/0
--- NOTE | 2017-10-03 16:38 | Admission Certification ---
Admission Certification Certification Statement - As attending physician, I certify that at the time of - admission, based on clinical presentation, severity of - symptoms, need for further diagnostic testing and - therapeutic interventions, and risk of adverse outcomes - without in-hospital treatment, in my clinical assessment, - this patient requires an acute hospital stay for a minimum - of two nights or longer. I have also considered psychsocial - factors such as support system, advanced age, financial - issues, cognitive issues, and failed out-patient treatments, - past re-admission history, safety of patient, and lack of - compliance as applicable. Specific rationale supporting this admission is: Septic shock, right lower lobe infiltrate elevated lactic acid, new onset of atrial fibrillation to normal sinus rhythm acute hypoxic respiratory failure acute kidney insufficiency elevated troponin and diarrhea
--- NOTE | 2017-10-03 16:43 | PN- Att Addend ---
Attending Addendum Attending Brief Note 87-year-old white female just discharged from short-term rehabilitation yesterday stable condition after weakness and treatment of cellulitis of the legs last evening she was in her usual state of health. Earlier this morning of nausea and diarrhea, weakness also her usual back pain and ambulance was called transported to the emergency room she was found to be febrile BP on the lower side and found to be in atrial fibrillation. This later converted back to normal sinus rhythm also found to have a high lactic acid and abnormal ABGs S x- ray with the right lower lobe infiltrate and and a troponin of 0.63 probably related to demand ischemia. Patient was transferred to the intensive care unit already seen by cardiology and recommendations given. Admitted with septic shock right lower lobe infiltrate lactic acidosis and transient atrial fibrillation acute hypoxic respiratory failure my patient was to be a DNR/DNI for those reasons she was put on BiPAP is and also has acute kidney insufficiency diarrhea condition is poor family at the bedside and aware Current Medications Sig/Michael Start time Last Medication Dose Route Stop Time Status Admin Acetaminophen 1,000 MG Q6P PRN 10/03 1400 AC IV Acetaminophen 0 .STK-MED ONE 10/03 1035 DC IV Acetaminophen 1,000 MG ONCE ONE 10/03 1030 DC 10/03 IV 10/03 1031 1035 Aspirin 300 MG ONCE ONE 10/03 1245 DC ND 10/03 1246 Aspirin 300 MG ONCE ONE 10/03 1245 DC 10/03 ND 10/03 1246 1245 Aspirin 325 MG ONCE ONE 10/03 1215 CAN PO 10/03 1216 Atorvastatin Calcium 40 MG DAILY 10/04 1000 AC PO Ceftazidime 1,000 MG Q24 10/04 1000 AC IV Ceftazidime 0 .STK-MED ONE 10/03 1039 DC .ROUTE Ceftazidime 1,000 MG STAT STA 10/03 1025 DC 10/03 IV 10/03 1026 1050 Enoxaparin Sodium 30 MG DAILY 10/04 1000 AC SC Hydrocortisone 100 MG Q6 10/03 1800 AC 10/03 Sodium Succinate IV 1532 Metoprolol Tartrate 5 MG ONCE ONE 10/03 1100 DC 10/03 IV 10/03 1101 1150 Metoprolol Tartrate 0 .STK-MED ONE 10/03 1052 DC IV Morphine Sulfate 1 MG Q4P PRN 10/03 1400 DC IV Morphine Sulfate 0 .STK-MED ONE 10/03 1329 DC .ROUTE Morphine Sulfate 1 MG ONCE ONE 10/03 1315 DC 10/03 IV 10/03 1316 1339 Multivitamins 1 TAB DAILY 10/04 1000 AC Therapeutic PO Omeprazole 20 MG DAILY 10/04 1000 AC PO Potassium Chloride 20 MEQ BID 10/03 2200 AC PO Prednisone 15 MG TID 10/03 1600 DC PO Prednisone 15 MG TID 10/03 1600 CAN PO Sodium Chloride 1,000 ML Q13H 10/03 1315 AC 10/03 IV 1339 Sodium Chloride 1,000 ML BOLUS ONE 10/03 1145 DC 10/03 IV 10/03 1244 1152 Sodium Chloride 1,000 ML BOLUS ONE 10/03 1145 DC 10/03 IV 10/03 1244 1152 Sodium Chloride 1,000 ML BOLUS ONE 10/03 1030 DC 10/03 IV 10/03 1229 1050 Spironolactone 25 MG DAILY 10/04 1000 AC PO Vancomycin HCl 1,000 MG DAILY 10/04 1000 AC Dextrose/Water 250 ML IV Vancomycin HCl 0 .STK-MED ONE 10/03 1039 DC .ROUTE Vancomycin HCl 1,000 MG ONCE ONE 10/03 1030 DC 10/03 Dextrose/Water 250 ML IV 10/03 1129 1100 Laboratory Tests 10/03/17 1415: Urine Color YEL, Urine Clarity CLEAR, Urine pH 6.0, Ur Specific [place] 1.025, Urine Protein 100 H, Urine Ketones NEG, Urine Nitrite NEG, Urine Bilirubin NEG, Urine Urobilinogen 0.2, Ur Leukocyte Esterase NEG, Ur Microscopic SEDIMENT EXAMINED, Urine RBC 5-10 H, Urine WBC 1-3 H, Ur Epithelial Cells FEW, Urine Bacteria FEW H, Hyaline Casts 1-3 H, Granular Casts 1-3 H, Urine Hemoglobin TRACE-INTACT, Urine Glucose 500 H 10/03/17 1335: Lactic Acid 6.5 H 10/03/17 1055: pH 7.41, pCO2 21 L, pO2 106 H, HCO3 13 L, ABG O2 Sat (Measured) 97.0, Carboxyhemoglobin 0.1 L, O2 Concentration % 100, Respiration Rate 18, O2 Delivery Method VISION, Vent Mode ST, Expiratory Pressure 6, Inspiratory Pressure 18, Phlebotomy Draw Site LEFT BRACHIAL 10/03/17 1048: Anion Gap 16, Estimated GFR 39 L, BUN/Creatinine Ratio 23.8, Glucose 245 H, Lactic Acid 7.4 H, Calcium 8.7, Total Bilirubin 0.3, AST 23, ALT 32, Alkaline Phosphatase 75, Troponin I 0.63 *H, Total Protein 5.1 L, Albumin 2.9 L, Globulin 2.2, Albumin/Globulin Ratio 1.3, D-Dimer High Sensitivty 3264 H, CBC w Diff NO MAN DIFF REQ, RBC 4.66, MCV 89.0, MCH 29.3, MCHC 32.9 L, RDW 17.3 H, MPV 8.0, Gran % 68.8, Lymphocytes % 28.2, Monocytes % 2.7, Eosinophils % 0.2, Basophils % 0.1, Absolute Granulocytes 2.9, Absolute Lymphocytes 1.2, Absolute Monocytes 0.1, Absolute Eosinophils 0, Absolute Basophils 0 Microbiology 10/03 1359 NASOPHARYN: Influenza Virus A & B Rapid Smear - COMP Vital Signs Date Time Temp Pulse Resp B/P B/P Pulse O2 O2 Flow FiO2 Mean Ox Delivery Rate 10/03 1410 99.9 84 22 78/42 97 BIPAP 100% 10/03 1300 99.7 76 22 121/53 97 BIPAP 100% 10/03 1221 100.6 87 28 109/54 94 BIPAP 100% 10/03 1214 78 10/03 1150 101.9 160 18 109/60 10/03 1150 101.5 87 24 73/49 96 BIPAP 100% 10/03 1101 97 BIPAP 100% 10/03 1057 100.0 10/03 1056 103.3 89 24 109/46 97 BIPAP 100% 10/03 1045 160 24 109/60 BIPAP 100% 10/03 1033 101.9 170 28 125/79 90 BIPAP 10/03 1020 170 88
--- NOTE | 2017-10-03 17:51 | Event Note ---
Event Note Event Note: Situation Persistent hypotension to 50-60/doppler with hypoxia to the 70's Background 87 year old woman with multiple medical problems admitted for septic shock with HCAP. Patient is DNR/DNI and declined any central line or vasopressor support. Assessment/Recommendations Family was in agreement at time of admission. Patient has an over all poor prognosis which family is aware. The patients son is flying in from [place] and should arrive around 5:30 AM tomorrow. At 6:15PM on 10/03/17 a family meeting was held with her daughter Vicky and granddaughter Ginger whom decided to make their loved one comfort measures. The patient agreed when asked. A surface logging systems logger was called for the family. This was discussed with attending Dr. Velasquez Oswald. -Change code status to comfort measures -Start scopolamine patch, morphine, and ativan -Contact Family with updates: * Daughter: Vicky * Granddaughter: Ginger
--- NOTE | 2017-10-03 18:35 | Cons- Cardiology ---
General Information and HPI Consulting Request Date of Consult: 10/03/17 Requested By: Velasquez Oswald MD Reason for Consult: atrial fibrillation ; hypotension Source of Information: patient, old records Exam Limitations: clinical condition History of Present Illness: The patient is an 87 year old female followed by Dr. Peterson. Her PMH is significant for HTN, CKD, etc. She was just discharged after an admission for LE edema and cellulitis. Now admitted via the ER with increasing weakness and nausea with diarrhea. On arrival to the ER the patient was noted to be in AF with a rapid ventricular rate and was given Metoprolol which resulted in reversion to NSR. Dyspneic; on BIPAP; Hypotensive; with possible pneumonia / sepsis. NO other obvious cardiac symptoms. Allergies/Medications Allergies: Coded Allergies: duloxetine (From CYMBALTA) (SEVERE SCHREIBER, DIZZINESS 05/29/17) pregabalin (From LYRICA) (WEAK/DIZZY 11/04/16) Home Med List: Aspirin (Aspirin*) 81 MG TAB.CHEW 81 MG PO DAILY HEART Atorvastatin Calcium 40 MG TABLET 1 TAB PO DAILY HLD (Reported) Furosemide 40 MG TABLET 1 TAB PO DAILY WATER PILL (Reported) Metoprolol Tartrate 25 MG TABLET 12.5 MG PO BID HEART Multivitamin (Daily Multiple Vitamin) 1 EACH TABLET 1 TAB PO DAILY SUPPLEMENT (Reported) Omeprazole 20 MG CAPSULE.DR 1 CAP PO DAILY GI (Reported) Potassium Chloride 20 MEQ TAB.ER.PRT 1 TAB PO BID SUPPLEMENT (Reported) Prednisone 5 MG TABLET 1 TAB PO TID FACTOR VIII (Reported) Spironolactone 25 MG TABLET 1 TAB PO DAILY DIURETIC (Reported) Tramadol HCl 50 MG TABLET 1 TAB PO Q6H PRN PAIN (Reported) Vit A/Vit C/Vit E/Zinc/Copper (Preservision Areds Tablet) 7,160-113 TABLET 1 TAB PO BID SUPPLEMENT (Reported) Current Medications: Current Medications Sig/Michael Start time Last Medication Dose Route Stop Time Status Admin Acetaminophen 1,000 MG Q6P PRN 10/03 1400 AC IV Acetaminophen 0 .STK-MED ONE 10/03 1035 DC IV Acetaminophen 1,000 MG ONCE ONE 10/03 1030 DC 10/03 IV 10/03 1031 1035 Aspirin 300 MG ONCE ONE 10/03 1245 DC AR 10/03 1246 Aspirin 300 MG ONCE ONE 10/03 1245 DC 10/03 AR 10/03 1246 1245 Aspirin 325 MG ONCE ONE 10/03 1215 CAN PO 10/03 1216 Atorvastatin Calcium 40 MG DAILY 10/04 1000 AC PO Ceftazidime 1,000 MG Q24 10/04 1000 AC IV Ceftazidime 0 .STK-MED ONE 10/03 1039 DC .ROUTE Ceftazidime 1,000 MG STAT STA 10/03 1025 DC 10/03 IV 10/03 1026 1050 Enoxaparin Sodium 30 MG DAILY 10/04 1000 AC SC Hydrocortisone 100 MG Q6 10/03 1800 AC 10/03 Sodium Succinate IV 1532 Lorazepam 1 MG Q4P PRN 10/03 1830 AC IV Metoprolol Tartrate 5 MG ONCE ONE 10/03 1100 DC 10/03 IV 10/03 1101 1150 Metoprolol Tartrate 0 .STK-MED ONE 10/03 1052 DC IV Morphine Sulfate 2 MG Q2P PRN 10/03 1830 AC IV Morphine Sulfate 1 MG Q4P PRN 10/03 1400 DC IV Morphine Sulfate 0 .STK-MED ONE 10/03 1329 DC .ROUTE Morphine Sulfate 1 MG ONCE ONE 10/03 1315 DC 10/03 IV 10/03 1316 1339 Multivitamins 1 TAB DAILY 10/04 1000 AC Therapeutic PO Omeprazole 20 MG DAILY 10/04 1000 AC PO Potassium Chloride 20 MEQ BID 10/03 2200 AC PO Prednisone 15 MG TID 10/03 1600 DC PO Prednisone 15 MG TID 10/03 1600 CAN PO Scopolamine HBr 1 PAT Q72 10/03 1828 AC TOP Sodium Chloride 1,000 ML Q13H 10/03 1315 r 10/03 IV 1339 Sodium Chloride 1,000 ML BOLUS ONE 10/03 1145 DC 10/03 IV 10/03 1244 1152 Sodium Chloride 1,000 ML BOLUS ONE 10/03 1145 DC 10/03 IV 10/03 1244 1152 Sodium Chloride 1,000 ML BOLUS ONE 10/03 1030 DC 10/03 IV 10/03 1229 1050 Spironolactone 25 MG DAILY 10/04 1000 AC PO Vancomycin HCl 1,000 MG DAILY 10/04 1000 AC Dextrose/Water 250 ML IV Vancomycin HCl 0 .STK-MED ONE 10/03 1039 DC .ROUTE Vancomycin HCl 1,000 MG ONCE ONE 10/03 1030 DC 10/03 Dextrose/Water 250 ML IV 10/03 1129 1100 Past History Travel History Traveled to [place] past 21 day No Medical History Neurological: NONE EENT: glaucoma, macular degeneration Cardiovascular: chronic venous insuff, hypertension Respiratory: NONE Gastrointestinal: NONE Hepatic: NONE Renal: NONE Musculoskeletal: NONE Psychiatric: NONE Endocrine: NONE Blood Disorders: NONE Cancer(s): NONE CHIEF OF PRODUCTION/Reproductive: NONE Surgical History Surgical History: none (venous stripping), LEG BYPASS X4 Psychosocial History Who Do You Live With? self Services at Home: None Smoking Status: Unknown If Ever Smoked ETOH Use: 6 Illicit Drug Use: UTD Functional Ability Ambulation: walker Exam & Diagnostic Data Vital Signs and I&O Vital Signs Date Time Temp Pulse Resp B/P B/P Pulse O2 O2 Flow FiO2 Mean Ox Delivery Rate 10/03 1615 92 10/03 1600 92 BIPAP 100% 10/03 1600 99.0 89 32 88/0 94 BIPAP 100% 10/03 1410 99.9 84 22 78/42 97 BIPAP 100% 10/03 1300 99.7 76 22 121/53 97 BIPAP 100% 10/03 1221 100.6 87 28 109/54 94 BIPAP 100% 10/03 1214 78 10/03 1150 101.9 160 18 109/60 10/03 1150 101.5 87 24 73/49 96 BIPAP 100% 10/03 1101 97 BIPAP 100% 10/03 1057 100.0 10/03 1056 103.3 89 24 109/46 97 BIPAP 100% 10/03 1045 160 24 109/60 BIPAP 100% 10/03 1033 101.9 170 28 125/79 90 BIPAP 10/03 1020 170 88 Intake & Output 10/03 1600 10/03 0800 10/03 0000 10/02 1600 10/02 0810/02 0000 Intake Total 1000 Output Total 400 Balance 600 Intake, IV 1000 Output, Urine 400 Patient 170 lb Weight Weight Estimated Measurement Method Physical Exam: General Appearance Alert, Oriented X3, Cooperative, Severe Distress Skin Normal Skin Temp/Moisture Exam: Cool/Dry Sepsis Skin Exam (color): Cyanotic, Pale HEENT Atraumatic, PERRLA, EOMI, Dry oral mucosa Neck Supple, No JVD, carotids normal bilaterally Cardiovascular Regular Rate, Normal S1, Normal S2, No Murmurs Lungs Diminish RLL airflow with crackles up to mid chest Abdomen Normal Bowel Sounds, Soft, No Tenderness, No Hepatospenomegaly, No Masses Neurological Normal / non focal Extremities No Clubbing, Normal Pulses, Peripheral cyanosis, 2+ bilateral lower extremity edema Vascular Normal Pulses, Pulses Symmetrical Labs/Luis Results: Laboratory Tests 10/03 10/03 10/03 1700 1600 1415 Chemistry Lactic Acid (0.7 - 2.1 mmol/L) Cancelled 9.2 H Troponin I (< 0.11 ng/ml) 1.07 *H Urines Urine Color (YEL,AMB,STR) YEL Urine Clarity (CLEAR) CLEAR Urine pH (5.0 - 8.0) 6.0 Ur Specific [place] (1.001 - 1.035) 1.025 Urine Protein (NEG,<30 MG/DL) 100 H Urine Ketones (NEG) NEG Urine Nitrite (NEG) NEG Urine Bilirubin (NEG) NEG Urine Urobilinogen (0.1 - 1.0 EU/dl) 0.2 Ur Leukocyte Esterase (NEG) NEG Ur Microscopic SEDIMENT EXAMINED Urine RBC (0 - 5 /HPF) 5-10 H Urine WBC (0 - 2 /HPF) 1-3 H Ur Epithelial Cells (NONE,FEW) FEW Urine Bacteria (NEG/NONE) FEW H Hyaline Casts (0/LPF) 1-3 H Granular Casts (NONE /LPF) 1-3 H Urine Hemoglobin (NEG) TRACE-INTACT Urine Glucose (N MG/DL) 500 H 10/03 10/03 1335 1055 Blood Gas pH (7.35 - 7.45 PH) 7.41 pCO2 (35 - 45 TORR) 21 L pO2 (80 - 100 TORR) 106 H HCO3 (21 - 28 MEQ/L) 13 L ABG O2 Sat (Measured) (>96.0 %) 97.0 Carboxyhemoglobin (1.5 - 5.0 %) 0.1 L O2 Concentration % 100 Respiration Rate (BPM) 18 O2 Delivery Method VISION Vent Mode ST Expiratory Pressure (CM H2O P) 6 Inspiratory Pressure (CM H2O P) 18 Chemistry Lactic Acid (0.7 - 2.1 mmol/L) 6.5 H Miscellaneous Phlebotomy Draw Site LEFT BRACHIAL 10/03 1048 Chemistry Sodium (137 - 145 mmol/L) 136 L Potassium (3.5 - 5.1 mmol/L) 3.9 Chloride (98 - 107 mmol/L) 101 Carbon Dioxide (22 - 30 mmol/L) 19 L Anion Gap (5 - 16) 16 BUN (7 - 17 mg/dL) 31 H Creatinine (0.5 - 1.0 mg/dL) 1.3 H Estimated GFR (>60 ml/min) 39 L BUN/Creatinine Ratio (7 - 25 %) 23.8 Glucose (65 - 99 mg/dL) 245 H Lactic Acid (0.7 - 2.1 mmol/L) 7.4 H Calcium (8.4 - 10.2 mg/dL) 8.7 Total Bilirubin (0.2 - 1.3 mg/dL) 0.3 AST (14 - 36 U/L) 23 ALT (9 - 52 U/L) 32 Alkaline Phosphatase (<127 U/L) 75 Troponin I (< 0.11 ng/ml) 0.63 *H Total Protein (6.3 - 8.2 g/dL) 5.1 L Albumin (3.5 - 5.0 g/dL) 2.9 L Globulin (1.9 - 4.2 gm/dL) 2.2 Albumin/Globulin Ratio (1.1 - 2.2 %) 1.3 Coagulation D-Dimer High Sensitivty (0 - 243 ng/ml) 3264 H Hematology CBC w Diff NO MAN DIFF REQ WBC (4.8 - 10.8 /CUMM) 4.2 L RBC (4.20 - 5.40 /CUMM) 4.66 Hgb (12.0 - 16.0 G/DL) 13.6 Hct (37 - 47 %) 41.5 MCV (81.0 - 99.0 FL) 89.0 MCH (27.0 - 31.0 PG) 29.3 MCHC (33.0 - 37.0 G/DL) 32.9 L RDW (11.5 - 14.5 %) 17.3 H Plt Count (130 - 400 /CUMM) 214 MPV (7.4 - 10.4 FL) 8.0 Gran % (42.2 - 75.2 %) 68.8 Lymphocytes % (20.5 - 51.1 %) 28.2 Monocytes % (1.7 - 9.3 %) 2.7 Eosinophils % (0 - 5 %) 0.2 Basophils % (0.0 - 2.0 %) 0.1 Absolute Granulocytes (1.4 - 6.5 /CUMM) 2.9 Absolute Lymphocytes (1.2 - 3.4 /CUMM) 1.2 Absolute Monocytes (0.10 - 0.60 /CUMM) 0.1 Absolute Eosinophils (0.0 - 0.7 /CUMM) 0 Absolute Basophils (0.0 - 0.2 /CUMM) 0 Diagnostic Data EKG Results AF with rapid ventricular rate and STT changes. CXR Results IMPRESSION: Right lower lobe probable pneumonia with probable small associated parapneumonic effusion. Left lower lobe pneumonia better appreciated on the earlier CT. Other Results CT chest: IMPRESSION: 1. Limited evaluation of the pulmonary arteries to bilateral lower lobes , as detailed above. Otherwise, no evidence of filling defects to indicate a definite pulmonary embolus. 2. Large confluent consolidation in the right lower lobe, and [id number] confluent consolidation in the left lower lobe. Additional areas of patchy airspace opacities. Differential considerations include infectious etiology/pneumonia, inflammatory process. Recommend followup CT to ensure resolution, and exclude other etiologies. 3. Small right pleural effusion. 4. Severe compression fracture of the T8 vertebral body, of indeterminate age. Assessment/Plan Assessment/Plan Assessment: 1. Atrial fibrillation with rapid ventricular rate, reverted to NSR 2. Healthcare facility acquired pneumonia with sepsis 3. Acute hypoxic respiratory failure 4. Hypotension 5. NADER 6. Elevated troponin suggestive of Type II TN 7. Diarrhea 8. Factor VIII deficiency Recommendations: - ICU admission - Trend troponin - IVF and pressor support as necessary - Full cultures with antibiotic coverage as per ICU team - Serial ECGs - Please notify me of any recurrence of atrial arrhythmias - NO anticoagulation for now. - Further discussion with family about goals of care. - Cardiac meds on hold as discussed (BB, Diuretic, etc) Consult Acknowledgment - Thank you for your consult request.
[2017-10-03 22:53] VITALS: BP 80/40
[2017-10-04 07:19] VITALS: BP 60/00
--- NOTE | 2017-10-04 08:23 | PN- Housestaff ---
Subjective Follow-up For: septic shock Subjective: seen and examined patient, family at bedside. Agonal breathing noted. Review of Systems Constitutional: Reports: see HPI. Objective Last 24 Hrs of Vital Signs/I&O Vital Signs Date Time Temp Pulse Resp B/P B/P Pulse O2 O2 Flow FiO2 Mean Ox Delivery Rate 10/04 0719 60/00 10/04 0645 20 10/04 0630 20 10/04 0615 20 10/04 0540 23 10/04 0415 22 10/04 0000 Nasal 5.0L Cannula 10/03 2253 97.6 85 22 80/40 10/03 1845 94 10/03 1839 BIPAP 100% 10/03 1615 92 10/03 1600 92 BIPAP 100% 10/03 1600 99.0 89 32 88/0 94 BIPAP 100% 10/03 1410 99.9 84 22 78/42 97 BIPAP 100% 10/03 1300 99.7 76 22 121/53 97 BIPAP 100% 10/03 1221 100.6 87 28 109/54 94 BIPAP 100% 10/03 1214 78 10/03 1150 101.9 160 18 109/60 10/03 1150 101.5 87 24 73/49 96 BIPAP 100% 10/03 1101 97 BIPAP 100% 10/03 1057 100.0 10/03 1056 103.3 89 24 109/46 97 BIPAP 100% 10/03 1045 160 24 109/60 BIPAP 100% 10/03 1033 101.9 170 28 125/79 90 BIPAP 10/03 1020 170 88 Intake & Output 10/04 1600 10/04 0800 10/04 0000 Intake Total 800 400 Output Total 200 100 Balance 600 300 Intake, IV 800 400 Output, Urine 200 100 Patient 161 lb Weight Weight Bed scale Measurement Method Physical Exam General Appearance: Severe Distress HEENT: PERRLA Cardiovascular: Normal S1, Normal S2 Lungs: decreased breath sounds Abdomen: Soft, No Tenderness Current Medications: Current Medications Sig/Michael Start time Last Medication Dose Route Stop Time Status Admin Acetaminophen 1,000 MG Q6P PRN 10/03 1400 AC IV Acetaminophen 0 .STK-MED ONE 10/03 1035 DC IV Acetaminophen 1,000 MG ONCE ONE 10/03 1030 DC 10/03 IV 10/03 1031 1035 Aspirin 300 MG ONCE ONE 10/03 1245 DC ND 10/03 1246 Aspirin 300 MG ONCE ONE 10/03 1245 DC 10/03 ND 10/03 1246 1245 Aspirin 325 MG ONCE ONE 10/03 1215 CAN PO 10/03 1216 Atorvastatin Calcium 40 MG DAILY 10/04 1000 CAN PO Ceftazidime 1,000 MG Q24 10/04 1000 AC IV Ceftazidime 0 .STK-MED ONE 10/03 1039 DC .ROUTE Ceftazidime 1,000 MG STAT STA 10/03 1025 DC 10/03 IV 10/03 1026 1050 Enoxaparin Sodium 30 MG DAILY 10/04 1000 AC SC Hydrocortisone 100 MG Q6 10/03 1800 DC 10/03 Sodium Succinate IV 1532 Lorazepam 1 MG Q4P PRN 10/03 1830 AC IV Metoprolol Tartrate 5 MG ONCE ONE 10/03 1100 DC 10/03 IV 10/03 1101 1150 Metoprolol Tartrate 0 .STK-MED ONE 10/03 1052 DC IV Morphine Sulfate See Dose .Q20MIN PRN 10/04 0545 AC 10/04 Insts (1) IV 0537 Morphine Sulfate 2 MG ONCE ONE 10/04 0345 DC 10/04 IV 10/04 0346 0342 Morphine Sulfate 2 MG Q1P PRN 10/04 0330 CAN IV Morphine Sulfate 100 MG Q24H 10/04 0330 AC 10/04 Dextrose/Water 100 ML IV 0354 Morphine Sulfate 2 MG Q2P PRN 10/03 1830 DC 10/04 IV 0209 Morphine Sulfate 1 MG Q4P PRN 10/03 1400 DC IV Morphine Sulfate 0 .STK-MED ONE 10/03 1329 DC .ROUTE Morphine Sulfate 1 MG ONCE ONE 10/03 1315 DC 10/03 IV 10/03 1316 1339 Multivitamins 1 TAB DAILY 10/04 1000 AC Therapeutic PO Omeprazole 20 MG DAILY 10/04 1000 AC PO Potassium Chloride 20 MEQ BID 10/03 2200 DC PO Prednisone 15 MG TID 10/03 1600 DC PO Prednisone 15 MG TID 10/03 1600 CAN PO Scopolamine HBr 1 PAT Q72 10/03 1828 AC 10/03 TOP 1955 Sodium Chloride 1,000 ML Q10H 10/03 1845 AC 10/04 IV 0211 Sodium Chloride 1,000 ML Q13H 10/03 1315 DC 10/03 IV 1339 Sodium Chloride 1,000 ML BOLUS ONE 10/03 1145 DC 10/03 IV 10/03 1244 1152 Sodium Chloride 1,000 ML BOLUS ONE 10/03 1145 DC 10/03 IV 10/03 1244 1152 Sodium Chloride 1,000 ML BOLUS ONE 10/03 1030 DC 10/03 IV 10/03 1229 1050 Spironolactone 25 MG DAILY 10/04 1000 CAN PO Vancomycin HCl 1,000 MG DAILY 10/04 1000 AC Dextrose/Water 250 ML IV Vancomycin HCl 0 .STK-MED ONE 10/03 1039 DC .ROUTE Vancomycin HCl 1,000 MG ONCE ONE 10/03 1030 DC 10/03 Dextrose/Water 250 ML IV 10/03 1129 1100 Dose Instructions: (1)Morphine Sulfate: HOSPICE PROTOCOL FOR USE ON 2NA AND ICU ONLY TITRATION PROTOCOL: Pain scsore 1-4 (grimace/moan) give 50% basal rate (max 10mg) as bolus IV or Sub-Q every 20 minutes PRN x3 doses; Pain 5-10 (yelling or visibly distressed) or labored respirations or respiration rate greater than 20/minute give 100% basal rate (max 10mg) as bolus IV or Sub-Q every 20 minutes PRN x3 doses. If above symptoms not improved, increase basal rate by 100% (not more than 10mg increments), and repeat protocol, inform MD. Last 24 Hrs of Lab/Luis Results Last 24 Hrs of Labs/Mics: Laboratory Tests 10/04/17 0500: Cortisol AM Sample Cancelled, CBC w Diff Cancelled, WBC Cancelled, RBC Cancelled , Hgb Cancelled, Hct Cancelled, MCV Cancelled, MCH Cancelled, MCHC Cancelled, RDW Cancelled, Plt Count Cancelled, MPV Cancelled 10/03/17 2200: Troponin I Cancelled 10/03/17 2000: Lactic Acid Cancelled 10/03/17 1900: Lactic Acid Cancelled 10/03/17 1700: Lactic Acid Cancelled 10/03/17 1600: Lactic Acid 9.2 H, Troponin I 1.07 *H 10/03/17 1415: Urine Color YEL, Urine Clarity CLEAR, Urine pH 6.0, Ur Specific [place] 1.025, Urine Protein 100 H, Urine Ketones NEG, Urine Nitrite NEG, Urine Bilirubin NEG, Urine Urobilinogen 0.2, Ur Leukocyte Esterase NEG, Ur Microscopic SEDIMENT EXAMINED, Urine RBC 5-10 H, Urine WBC 1-3 H, Ur Epithelial Cells FEW, Urine Bacteria FEW H, Hyaline Casts 1-3 H, Granular Casts 1-3 H, Urine Hemoglobin TRACE-INTACT, Urine Glucose 500 H 10/03/17 1335: Lactic Acid 6.5 H 10/03/17 1055: pH 7.41, pCO2 21 L, pO2 106 H, HCO3 13 L, ABG O2 Sat (Measured) 97.0, Carboxyhemoglobin 0.1 L, O2 Concentration % 100, Respiration Rate 18, O2 Delivery Method VISION, Vent Mode ST, Expiratory Pressure 6, Inspiratory Pressure 18, Phlebotomy Draw Site LEFT BRACHIAL 10/03/17 1048: Anion Gap 16, Estimated GFR 39 L, BUN/Creatinine Ratio 23.8, Glucose 245 H, Lactic Acid 7.4 H, Calcium 8.7, Total Bilirubin 0.3, AST 23, ALT 32, Alkaline Phosphatase 75, Troponin I 0.63 *H, Total Protein 5.1 L, Albumin 2.9 L, Globulin 2.2, Albumin/Globulin Ratio 1.3, D-Dimer High Sensitivty 3264 H, CBC w Diff NO MAN DIFF REQ, RBC 4.66, MCV 89.0, MCH 29.3, MCHC 32.9 L, RDW 17.3 H, MPV 8.0, Gran % 68.8, Lymphocytes % 28.2, Monocytes % 2.7, Eosinophils % 0.2, Basophils % 0.1, Absolute Granulocytes 2.9, Absolute Lymphocytes 1.2, Absolute Monocytes 0.1, Absolute Eosinophils 0, Absolute Basophils 0 Microbiology 10/03 1540 STOOL: Clostridium difficile Toxin A & B - COLB 10/03 1515 UPPER RESP: Surveillance Culture - RECD 10/03 1515 GI: Surveillance Culture - RECD 10/03 1419 URINE ROUT: Legionella Antigen - RES 10/03 1419 URINE ROUT: Streptococcus pneumoniae Antigen (M - RES 10/03 1419 URINE ROUT: Urine Culture - RES 10/03 1407 LOWER RESP: Respiratory Culture - COLB 10/03 1407 LOWER RESP: Gram Stain - COLB 10/03 1359 NASOPHARYN: Influenza Virus A & B Rapid Smear - COMP 10/03 1050 BLOOD: Blood Culture - RECD 10/03 1040 BLOOD: Blood Culture - RECD Assessment/Plan Assessment: 87 year old woman with past medical history of Factor VIII deficiecy on chronic prednisone, hypertension, CKD, and glaucoma brought in by ambulance from home for evaluation of nausea, diarrhea, weakness, and shortness of breath. Found to have sepsis shock with right lower lobe pneumonia requiring ICU admission. Goals of care were addressed and Patient wished to be made comfort care. Problem List -Septic Shock with elevated lactic acid 2/2 heathcare Acquired Pneumonia -Atrial fibrillation with rapid ventricular response -Acute hypoxic respiratory failure -Acute kidney injury on CKD -demand ischemia -Diarrhea -Factor VIII deficiency, on chronic prednisone Plan: She was made comfort care. Around 9:15am she went bradycardic and went into PEA. On examination pupils were fixed and dilated with no corneal reflex. No heart and lung sounds were appreciated for one minute. No parent mouth no chest conversions noted. Did not respond to sternal rub or firm pinch. Time of pronounced 9:[address] Oswald notified hearing examiner notified: Case number [id number] Problem List: 1. Sepsis 2. Elevated troponin Pain Ratin Pain Location: na Pain Goal: Pain 4 or less Pain Plan: n/a Tomorrow's Labs & Rationales: none required
--- NOTE | 2017-10-04 16:31 | PN- Att Addend ---
Attending Addendum Attending Brief Note Patient was poor since admission blood pressure reminded low 50-60 on Doppler with low O2 saturations. Patient originally was DNR/DNI had declined a central line or pressors. Later yesterday evening due to patient poor condition and prognosis daughter had a long discussion with resident and the patient was made comfort care patient was poor all night and she in the morning
--- NOTE | 2017-10-04 16:46 | Discharge Summary ---
Visit Information Visit Dates Admission Date: 10/03/17 Discharge Date: 10/04/17 Hospital Course Course Attending Physician: Velasquez Oswald MD Primary Care Physician: Velasquez Oswald MD Consulting Request: Consulting Specialty: Cardiology Consulting Physician: Dr. Farnsworth Reason for Consult: Atrial fibrillation, hypertension and type II TN Hospital Course: 87-year-old white female just returned home yesterday from short-term rehabilitation. Was okay during the day the next morning got very sick was brought to the hospital, in the emergency room first was found to be in atrial fibrillation later on she converted to normal sinus rhythm. Was found to be in acute respiratory failure having a pneumonia on CAT scan has signs of sepsis hypotension acute kidney insufficiency and elevated troponin suggestive of a type II TN. Patient was transferred to the intensive care unit and patient wishes to be a DNI and DNR and she wished no central lines or pressors with her blood pressure reminded low. Patient was still watched closely but did not improve later in the afternoon family and patient decided to be comfort care only. Overnight the blood pressure was still very low continue to doing poorly the patient in the morning with the family at her site. Complications: Related to her shock. Allergies: Coded Allergies: duloxetine (From CYMBALTA) (SEVERE SCHREIBER, DIZZINESS 05/29/17) pregabalin (From LYRICA) (WEAK/DIZZY 11/04/16) Significant Procedures: SERVICE DATE: 10/03/17-1026 EXAM TYPE: RAD - XRY-PORTABLE CHEST XRAY EXAMINATION: XR PORTABLE CHEST CLINICAL INFORMATION: SOB. COMPARISON: Chest 09/11/2017. TECHNIQUE: Portable frontal view of the chest was obtained. FINDINGS: There is cardiomegaly with normal pulmonary vascularity. The lungs are expanded with dense right lower lobe consolidation consistent with infiltrate. No gross bony abnormality seen. IMPRESSION: Right lower lobe pneumonic consolidation. Cardiomegaly without congestion. SERVICE DATE: 10/03/17-1215 EXAM TYPE: CAT - CTA CHEST-PULMONARY EMBOLISM EXAMINATION: CT ANGIOGRAM CHEST WITHOUT AND WITH CONTRAST (CT PULMONARY ANGIOGRAM FOR PE) CLINICAL INFORMATION: PE. SOB. Elevated D-dimer. COMPARISON: X-ray 10/03/2017. CT abdomen 06/08/2017. TECHNIQUE: Prior to contrast administration, noncontrast localization images were obtained. Subsequently, multidetector volumetric imaging was performed from the thoracic inlet to below the diaphragms following the administration of 100 mL Optiray 350 intravenous contrast. No contrast reaction reported. Sagittal, coronal, and MIP oblique sagittal reformatted images were obtained on the CT workstation, uploaded to PACS, and reviewed. DLP: 380.54 mGy-cm. FINDINGS: QUALITY OF STUDY/CONTRAST BOLUS: Satisfactory PULMONARY ARTERIES: No evidence of filling defects in the pulmonary arteries, the lobar and segmental vessels of bilateral upper lobes, the lingula and middle lobes. Limited evaluation of the lower lobes secondary to the extensive consolidation, without large pulmonary embolus seen. THORACIC AORTA: No aneurysm or dissection. Scattered atherosclerotic calcification seen. LUNG: Large confluent consolidation is seen in the right lower lobe. No central mass lesion is appreciated, evaluation limited by the extensive consolidation. Ymehu-ut-[id number] confluent consolidation in the medial aspect of the left lower lobe. There is patchy airspace and ground-glass opacities in the left lower lobe. Small right pleural effusion. There are multifocal patchy airspace opacities along the posterior aspect of the right upper lobe adjacent to the effusion. PLEURA: Small right pleural effusion. No pneumothorax. MEDIASTINUM: Normal heart size. No pericardial effusion. No hilar adenopathy. Limited evaluation of the luanne, without gross abnormality seen. No evidence of septal bowing or right heart strain. CHEST WALL/AXILLA: No axillary or internal mammary lymphadenopathy. OSSEOUS STRUCTURES: Marked compression of T8 vertebral body of indeterminate age. Mild anterior wedging of T9 vertebral body. Multilevel moderate disc degenerative change is present. UPPER ABDOMEN: No acute findings. No reflux of contrast into the hepatic veins to suggest elevated right heart pressures. IMPRESSION: 1. Limited evaluation of the pulmonary arteries to bilateral lower lobes , as detailed above. Otherwise, no evidence of filling defects to indicate a definite pulmonary embolus. 2. Large confluent consolidation in the right lower lobe, and hhkaw-og-sefvjrrr confluent consolidation in the left lower lobe. Additional areas of patchy airspace opacities. Differential considerations include infectious etiology/pneumonia, inflammatory process. Recommend followup CT to ensure resolution, and exclude other etiologies. 3. Small right pleural effusion. 4. Severe compression fracture of the T8 vertebral body, of indeterminate age. VTE: Negative SERVICE DATE: 10/03/17 EXAM TYPE: RAD - XRY-PORTABLE CHEST XRAY EXAMINATION: XR PORTABLE CHEST CLINICAL INFORMATION: Hypoxia, septic shock COMPARISON: Same day CTA chest TECHNIQUE: Portable frontal view of the chest was obtained. FINDINGS: Large right lower lobe consolidation with likely associated parapneumonic effusion. A smaller left lower lobe consolidation is better seen on the earlier CT. The patient's chin obscures evaluation of the right lung apex. Lungs are otherwise appear clear. The cardiac silhouette is top normal. Calcifications are noted at the aortic arch. IMPRESSION: Right lower lobe probable pneumonia with probable small associated parapneumonic effusion. Left lower lobe pneumonia better appreciated on the earlier CT. Pertinent Lab Results: 10/03/17 1415: Urine Color YEL, Urine Clarity CLEAR, Urine pH 6.0, Ur Specific [place] 1.025, Urine Protein 100 H, Urine Ketones NEG, Urine Nitrite NEG, Urine Bilirubin NEG, Urine Urobilinogen 0.2, Ur Leukocyte Esterase NEG, Ur Microscopic SEDIMENT EXAMINED, Urine RBC 5-10 H, Urine WBC 1-3 H, Ur Epithelial Cells FEW, Urine Bacteria FEW H, Hyaline Casts 1-3 H, Granular Casts 1-3 H, Urine Hemoglobin TRACE-INTACT, Urine Glucose 500 H 10/03/17 1335: Lactic Acid 6.5 H 10/03/17 1055: pH 7.41, pCO2 21 L, pO2 106 H, HCO3 13 L, ABG O2 Sat (Measured) 97.0, Carboxyhemoglobin 0.1 L, O2 Concentration % 100, Respiration Rate 18, O2 Delivery Method VISION, Vent Mode ST, Expiratory Pressure 6, Inspiratory Pressure 18, Phlebotomy Draw Site LEFT BRACHIAL 10/03/17 1048: Anion Gap 16, Estimated GFR 39 L, BUN/Creatinine Ratio 23.8, Glucose 245 H, Lactic Acid 7.4 H, Calcium 8.7, Total Bilirubin 0.3, AST 23, ALT 32, Alkaline Phosphatase 75, Troponin I 0.63 *H, Total Protein 5.1 L, Albumin 2.9 L, Globulin 2.2, Albumin/Globulin Ratio 1.3, D-Dimer High Sensitivty 3264 H, CBC w Diff NO MAN DIFF REQ, RBC 4.66, MCV 89.0, MCH 29.3, MCHC 32.9 L, RDW 17.3 H, MPV 8.0, Gran % 68.8, Lymphocytes % 28.2, Monocytes % 2.7, Eosinophils % 0.2, Basophils % 0.1, Absolute Granulocytes 2.9, Absolute Lymphocytes 1.2, Absolute Monocytes 0.1, Absolute Eosinophils 0, Absolute Basophils 0 Microbiology 10/03 1451 UPPER RESP: Surveillance Culture - ORD 10/03 1451 GI: Surveillance Culture - ORD 10/03 1407 URINE ROUT: Legionella Antigen - ORD 10/03 1407 URINE ROUT: Streptococcus pneumoniae Antigen (M - ORD 10/03 1407 URINE ROUT: Urine Culture - ORD 10/03 1407 LOWER RESP: Respiratory Culture - ORD 10/03 1407 LOWER RESP: Gram Stain - ORD 10/03 1359 NASOPHARYN: Influenza Virus A & B Rapid Smear - COMP 10/03 1050 BLOOD: Blood Culture - RECD 10/03 1040 BLOOD: Blood Culture - RECD Diagnostic Data EKG Results 10/03/17 1018: Afib with RVR 10/03/17 1101: NSR, poor R-wave progression, TWI V1-V3 CXR Results IMPRESSION: Right lower lobe pneumonic consolidation. Cardiomegaly without congestion. 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
== END 2017-10-04 09:24 | disposition expired | DRG 871 ==
LOC: ERH 10:12 → ERHI 12:03 → ENRESERV 12:50 → CRI 14:54 → ENTRNSPT 10-04 12:04 → EDTRNSPTSTS 10-04 12:14 → CMPTRNSPT 10-04 12:17
PROVIDERS: Emergency Medicine
DX: A41.9 Sepsis, unspecified organism (principal); J18.9 Pneumonia, unspecified organism; I21.A1 Myocardial infarction type 2; J96.00 Acute respiratory failure, unspecified whether with hypoxia or hypercapnia; I95.9 Hypotension, unspecified; I48.91 Unspecified atrial fibrillation; D68.51 Activated protein C resistance; L97.919 Non-pressure chronic ulcer of unspecified part of right lower leg with unspecified severity; L97.929 Non-pressure chronic ulcer of unspecified part of left lower leg with unspecified severity; N28.9 Disorder of kidney and ureter, unspecified; I12.9 Hypertensive chronic kidney disease with stage 1 through stage 4 chronic kidney disease, or unspecified chronic kidney disease; N18.9 Chronic kidney disease, unspecified; H40.9 Unspecified glaucoma; Z79.52 Long term (current) use of systemic steroids
CPT/HCPCS: CCU; 71045; 81001; 82436; 87040; 87070; 87086; 87449; 87450; 87804; 87804-59; 93005; 93010; 96361; 96374; 96375; 99291; J0131; J0713; J1650; J1720; J2270; J3370; J7060; J7512